=== PATIENT | male | born 1940 | race Caucasian/White ===

== ENCOUNTER 2019-08-19 08:31 | Outpatient (CLI) | payer MEDICARE, SELFPAY ==
--- NOTE | 2019-08-19 09:00 | XRR_ITS ---
PROCEDURE INFORMATION: Exam: XR Abdomen, 1 View Exam date and time: 08/19/2019 9:21 AM Age: 78 years old Clinical indication: Abdominal pain; Additional info: Kidney stone, f/u, pain x 1 year TECHNIQUE: Imaging protocol: XR of the abdomen. Views: Frontal supine view of the abdomen. 1 View. COMPARISON: CR XR KUB [id number] 04/29/2019 7:21 AM FINDINGS: Gastrointestinal tract: A moderate amount of air and stool is present in the colon. This limits evaluation for renal or ureteral calculi. Organs: Several small calcifications in the pelvis and overlying the bladder are noted. These could represent phleboliths or bladder stones. Bones/joints: No acute abnormality. XR/XR KUB [id number] IMPRESSION: 1. A moderate amount of air and stool is present in the colon. This limits evaluation for renal or ureteral calculi. 2. Several small calcifications in the pelvis and overlying the bladder are noted. These could represent phleboliths or bladder stones.
== END 2019-08-19 08:32 | disposition home or self-care (01) ==
PROVIDERS: Family Provider Electrodiagnostic Medicine; PCP Electrodiagnostic Medicine; Visit Provider Urology
DX: N20.0 Calculus of kidney (principal)
CPT/HCPCS: 74018; 81001

== ENCOUNTER 2020-05-19 06:11 | Outpatient (CLI) | payer MEDICARE, SELFPAY ==
--- NOTE | 2020-05-19 07:15 | XR_ITS ---
WS: [id number] XR KUB [id number] REASON FOR EXAM: BLADDER STONE FINDINGS: Compared to the previous examination, there is likely a small calculus in the lower pole of the right kidney which is unchanged. Calcification in the left upper quadrant is likely splenic artery in orig in. There are multiple calcifications in the pelvis. Clearly 2 of these on the left are phleboliths. More superior of these calcifications have the appearance of calculi and they appear to be larger than on the previous study. There is now an appearance of a curvilinear calcification seen overlying the right aspect of the pubi c symphysis which could be an overlap of structures. No other significant findings are noted. XR/XR KUB [id number] IMPRESSION: Multiple calcifications in the pelvis as noted. For better delineation of the p ossible etiology and location of these calcifications an AP and both oblique vi ews of the pelvis are recommended.
== END 2020-05-19 06:12 | disposition home or self-care (01) ==
PROVIDERS: PCP Electrodiagnostic Medicine; Visit Provider Urology
DX: N20.9 Urinary calculus, unspecified (principal)
CPT/HCPCS: 74018; 81003

== ENCOUNTER 2020-08-29 18:17 | Inpatient (IN) | payer MEDICARE, SELFPAY ==
[2020-08-29] VITALS (10 sets, daily range): BP systolic 167–186; BP diastolic 85–117; PULSE 64–79; RESP 14–18; TEMP 36.8–37; O2SAT 91–98; BMI 29.1
--- NOTE | 2020-08-29 18:57 | XRR_ITS ---
PROCEDURE INFORMATION: Exam: XR Right Knee Exam date and time: 08/29/2020 7:00 PM Age: 79 years old Clinical indication: Pain and injury or trauma; Fall; Blunt trauma; Knee; Right TECHNIQUE: Imaging protocol: XR Right knee. Views: 3 views. COMPARISON: CR Knee 3 views, RIGHT* [id number] 04/27/2016 8:14 PM FINDINGS: Bones/joints: There is a comminuted fracture of the distal femoral diaphysis, with anterior displacement and overlap of fracture fragments, resulting in foreshortening. No dislocation. A joint effusion is present. Soft tissues: Swelling of the surrounding soft tissues is evident. XR/XR knee RT 3V* [id number] IMPRESSION: Comminuted and displaced fracture of the right distal femoral diaphysis.
--- NOTE | 2020-08-29 18:58 | ED_ITS ---
HPI - Fall General: Chief Complaint: Fall Stated Complaint: FALL / KNOT ON KNEE Time Seen by Provider: 08/29/20 18:54 Source: patient and EMS Mode of arrival: EMS Limitations: no limitations History of Present Illness: HPI Narrative: 79-year-old male who is here by EMS after a fall. Patient states that he was outside walking and tripped and fell and landed on his right leg. He has had severe right knee pain and was unable to stand or bear any weight on that leg. He states the pain is in the knee. He denies any hip pain. Denies any back pain. Denies hitting his head. He states his pain is much worse with any type of movement. He rates his pain currently a 4 out of 10 at rest. MD complaint: fall Associated symptoms-after fall: Denies abdominal pain, chest pain, headache(s) or neck pain Review of Systems Const: Denies: fever(s), chills, body aches or change in appetite Eyes: Denies: blurry vision or eye discomfort ENMT: Denies: throat pain or dental pain Card: Denies: chest pain Resp: Denies: dyspnea GI: Denies: abdominal pain, nausea, vomiting or diarrhea : Denies: dysuria Musc: Reports: joint pain; Denies: neck pain or back pain Skin/Breast: Denies: rash Neuro: Denies: headache(s) Psych: Denies: depression Rafita/Lymph: Denies: easy bruising All/Imm: Denies: urticaria PFSH ED PFSH: Medical History (Updated 08/29/20 @ 19:50 by Manuel Ortega MD) BPH loc w urin obs/LUTS History of bladder stone Postprocedural urethral stricture On [facility] program with good patency maintenance Urolithiasis Surgical History History of orchiectomy History of transurethral resection of prostate Family History Mother , AT AGE 69 Stroke Father , IN HIS 60-70'S Prostate cancer Social History Smoking and tobacco status: former smoker Alcohol intake: never Adopted: No Caregiver/support person: No Lives independently: No Household members: spouse Marital status: Current occupational status: retired History of recent travel: No Current gender identity: Male Physical Exam Const: COMMON NORMALS: no acute distress, patient oriented x3 and healthy appearing HENMT: COMMON NORMALS: normocephalic and atraumatic HEAD & SCALP: normocephalic and atraumatic Eye: COMMON NORMALS: Equal, round and reactive pupils present and EOMs intact bilaterally PUPIL: Yes Equal, round and reactive pupils present Neck/C-Spine: COMMON NORMALS: full ROM and supple Chest: COMMONS NORMALS: normal inspection of the chest and normal palpation of entire chest wall Resp: COMMON NORMALS: normal respiratory effort, No retractions, No use of accessory muscles and clear to auscultation bilaterally AUSCULTATION: clear to auscultation bilaterally Cardio: COMMON NORMALS: regular rate, regular rhythm and No murmurs present (Cardio) RATE: regular rate RHYTHM: regular rhythm GI: COMMON NORMALS: Normal to inspection, nondistended, normoactive bowel sounds present, Soft to palpation, non-tender and no masses PALPATION: Yes Soft to palpation Extremity: NARRATIVE EXTREMITY EXAM: Tenderness over right knee distal pulses intact. Unable to tolerate any range of motion due to pain Neuro: COMMON NORMALS: patient oriented x3, moves all extremities and no focal motor deficits Psych: COMMON NORMALS: mental status grossly normal, Normal thought process present and cooperative THOUGHT PROCESS: Normal thought process present Skin: COMMON NORMALS: no rashes or lesions noted and no wounds GENERAL SKIN EXAM: no rashes or lesions noted Course Vital Signs: Vital signs: Vital Signs Temperature 98.6 F 08/29/20 19:12 Pulse Rate 79 08/29/20 19:37 Respiratory Rate 14 08/29/20 19:37 Blood Pressure 167/89 08/29/20 19:37 Pulse Oximetry 98 08/29/20 19:37 MDM - Fall MDM Narrative: Medical decision making narrative: Patient presents with a fall and has a distal femur fracture. I spoke to Dr. Van of orthopedics along with the hospitalist and will admit at this time. He has no other signs of any other injuries. Imaging Data^: Xray Ortho: Attestation: I personally reviewed and interpreted this imaging study as follows: My impression: distal femur fx Discharge Plan Discharge Patient Disposition: Admitted As Inpatient Clinical Impression: Fall Closed right femoral fracture Qualifiers: Encounter type: initial encounter Femur location: distal, unspecified portion Fracture morphology: unspecified fracture morphology Qualified Code(s): S72.401A - Unspecified fracture of lower end of right femur, initial encounter for closed fracture Condition: Stable Coding Level of Care Code ED Healthcare Economics Manager for Al[facility] Fwd Exam Comprehensive
[2020-08-29] MEDS: morphine 4 mg/mL SDV 1 mL IVP (19:08)
[2020-08-29] MEDS: ondansetron 2 mg/ML SDV 2 mL 4 MG IVP (19:08)
--- NOTE | 2020-08-29 19:29 | ECG_ITS ---
[facility] Test Date: 2020-08-29 Pat Name: Zaki Segura Department: Room: Gender: Male Credit Administration Officer: : 1940 Requested By: Manuel Ortega Order Number: [id number] Javi MD: Heaven Trujillo M.D. Measurements Intervals [place] Rate: 75 P: 51 WA: 189 QRS: -65 QRSD: 128 T: 16 QT: 416 QTc: 467 Interpretive Statements SINUS RHYTHM RIGHT BUNDLE BRANCH BLOCK [120+ ms QRS DURATION, UPRIGHT V1, 40+ ms S IN I/aVL/V4/V5/V6] INFERIOR MYOCARDIAL INFARCTION , PROBABLY OLD [40+ ms Q WAVE AND/OR ST/T ABNORMALITY IN II/aVF] Compared to ECG 12/26/2015 12:05:20 Right bundle-branch block now present Myocardial infarct finding now present Electronically Signed On 08-30-2020 8:00:04 CERTIFIED DENTAL ASSISTANT by Heaven Trujillo M.D. [id number]
--- NOTE | 2020-08-29 19:29 | XRR_ITS ---
PROCEDURE INFORMATION: Exam: XR Chest, 1 View Exam date and time: 08/29/2020 7:34 PM Age: 79 years old Clinical indication: Injury or trauma; Fall; Blunt trauma (contusions or hematomas) TECHNIQUE: Imaging protocol: XR of the chest Views: 1 view. COMPARISON: CR Chest 2 views* [id number] 02/07/2016 12:41 PM FINDINGS: Lungs: Unremarkable. No consolidation. Pleural spaces: Unremarkable. No pleural effusion. No pneumothorax. Heart/Mediastinum: Stable cardiomediastinal silhouette. Bones/joints: Degenerative changes of the spine seen. No acute fracture visualized. XR/XR chest 1V portable [id number] IMPRESSION: No evidence of active cardiopulmonary disease.
--- NOTE | 2020-08-29 19:30 | PC.NURSE ---
xray in room
--- NOTE | 2020-08-29 19:55 | P.HP_ITS ---
Providers/Chief Complaint Primary Care Provider: Darci Frances DO Chief Complaint: FALL / KNOT ON KNEE History of Present Illness Zaki Segura is a 79 year old male who does not have significant past medical history presented today after sustaining a fall. Patient is stating that in the evening he went outside of his home to take a look at sewerage area when he slipped on the ice and fell. He did not experience any seizure-like activities, chest pain shortness of breath nausea or syncopal event. He is attributing his fall to loss of balance on ice. He was transported to the hospital for further evaluation, diagnostics in the ER revealed distal right femur fracture displaced, hypertension, he was saturating well on room air he did not require 2 L nasal cannula at the time my evaluation. Patient was not complaining of a ctive pain at rest, no vascular compromise of lower extremities, CBC, BMP, chest x-ray, knee x-ray and EKG reviewed. EKG is unremarkable showing sinus rhythm. No ischemic or infarctive changes, knee x-ray showing displaced distal femur fracture. 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 Review of Systems Const: Denies: fever(s) or chills Eyes: Denies: change in vision ENMT: Denies: throat pain Card: Denies: chest pain Resp: Denies: dyspnea GI: Denies: abdominal pain : Denies: flank pain Musc: Reports: extremity pain, joint pain, joint swelling, joint redness, joint warmth and limited range of motion Skin/Breast: Denies: rash Neuro: Denies: headache(s) Psych: Denies: anxiety Endo: Denies: polyuria Rafita/Lymph: Denies: easy bruising All/Imm: Denies: urticaria Medications/Allergies Home Medications Medication Instructions Recorded Confirmed Last Taken Type chlorpheniramine maleate 4 mg 4 mg PO Q12H PRN tab 08/19/19 05/19/20 Unknown History tablet ciprofloxacin HCl 500 mg tablet 500 mg PO BID 08/19/19 05/19/20 Unknown History metoprolol tartrate 50 mg tablet 50 mg PO DAILY 08/19/19 05/19/20 Unknown History tamsulosin 0.4 mg capsule 0.4 mg PO DAILY #90 cap 01/13/20 05/19/20 Unknown Rx Allergies Allergy/AdvReac Type Severity Reaction Status Date / Time Sulfa (Sulfonamide Allergy UNKNOWN Verified 08/17/19 15:48 Antibiotics) sulfamethoxazole Allergy UNKNOWN Verified 08/17/19 15:48 [From Bactrim] trimethoprim [From Bactrim] Allergy UNKNOWN Verified 08/17/19 15:48 PFSH Acute PFSH: Medical History BPH loc w urin obs/LUTS History of bladder stone Postprocedural urethral stricture On [facility] program with good patency maintenance Urolithiasis Surgical History History of orchiectomy History of transurethral resection of prostate Family History Mother , AT AGE 69 Stroke Father , IN HIS 60-70'S Prostate cancer Social History Smoking and tobacco status: former smoker Alcohol intake: never Adopted: No Caregiver/support person: No Lives independently: No Household members: spouse Marital status: Current occupational status: retired History of recent travel: No Current gender identity: Male Vitals/I&O/Wt Last Vital Signs Temp 98.6 F 08/29/20 19:12 Pulse 79 08/29/20 19:37 Resp 14 08/29/20 19:37 BP 167/89 08/29/20 19:37 Pulse Ox 98 08/29/20 19:37 Weight last 48 hrs Weight 84.368 kg Physical Exam Narrative: EXAM NARRATIVE: elderly male who appears stated age Does not look dehydrated or in distress S1, S2 sinus rhythm no murmur appreciated No signs of fluid overload Abdomen soft, distended visceral obesity nontender bowel sound present Lower extremity no vascular compromise, right leg has splint, no ischemia gangrene or ulcer noted Limited range of motion Bilateral breath sounds without adventitious rhonchi or crackles no active wheezing Awake alert oriented x3 GCS 15 Appropriate mood, no neurological deficit Data : 08/29/20 20:10 08/29/20 20:10 A&P Assessment and plan (1) Closed right femoral fracture: Right distal femur fracture, no vascular compromise of lower extremity noted Dr. Van consulted Patient will be kept n.p.o. after midnight, will start D5 half-normal saline fluid resuscitation SCDs for DVT prophylaxis preoperatively Patient considers himself very active for his age never had any SC CHF, does not take insulin, RCRI low risk no need of cardiac evaluation before surgery considering urgency of the procedure I would continue metoprolol Right leg has a splint, Senna S and Dilaudid regimen EKG showing sinus rhythm with bundle branch block with T wave changes specific to right bundle branch otherwise patient is asymptomatic, chest x-ray did not sh ow any acute abnormality Status: Acute Qualifiers: Encounter type: initial encounter Femur location: distal, unspecified portion Fracture morphology: unspecified fracture morphology Qualified Code(s): S72.401A - Unspecified fracture of lower end of right femur, initial encounter for closed fracture (2) Fall: Patient is attributing his fall to losing balance on the ice, no syncope, seizure-like activities or chest pain Status: Acute Additional A&P Information Hypertension: Continue metoprolol Diet: N.p.o. DVT prophylaxis SCDs Goals of care discussed with the patient he is okay with intubation perioperatively but wishes to stay DNR/DNI, he is also refusing COVID-19 rapid antigen test Attestations Medical Necessity Statement*: Anticipating stay in the hospital cross more than 2 midnights will need surgical intervention for right distal femur fracture Time Spent in Patient Care: (>than 50% of time spent in counselling and/or direct pt care on unit) . 50mins Coding Level of Care Code Acute Inclusion Intern for Chg Fwd Diagnoses Closed right femoral fracture S72.401A Encounter type: initial encounter Femur location: distal, unspecified portion Fracture morphology: unspecified fracture morphology Fall W19.XXXA
[2020-08-29 20:25] LABS: Basophils # 0.1 10^3/uL (0.0-0.1); Basophils % 0.4 %; Eosinophils # 0.1 10^3/uL (0.0-0.8); Eosinophils % 0.4 %; Hematocrit 39.5 % (42.0-52.0); Hemoglobin 12.8 g/dL (11.7-16.6); Lymphocytes # 0.9 10^3/uL (0.8-4.8); Lymphocytes % 7.7 %; Mean Corpuscular HGB Conc 32.4 g/dL (30.0-36.0); Mean Corpuscular Hemoglobin 28.9 pg (28.0-34.0); Mean Corpuscular Volume 89.2 fL (80-94); Mean Platelet Volume 10.1 fL (7.4-10.4); Monocytes # 0.7 10^3/uL (0.2-0.9); Monocytes % 5.5 %; Neutrophils % 85.8 %; Nucleated Red Blood Cells % 0 %; Platelet Count 247 10^3/cmm (130-400); Red Blood Count 4.43 10^6/uL (4.1-5.3); Red Cell Distribution Width 12.8 % (12.1-15.1); White Blood Count 11.8 10^3/uL (4.0-10.0)
[2020-08-29 20:54] LABS: Alanine Aminotransferase 22 U/L (0-41); Albumin Level 4.4 g/dL (3.5-5.2); Alkaline Phosphatase 97 IU/L (40-130); Aspartate Amino Transferase 22 U/L (0-40); Blood Urea Nitrogen 17 mg/dL (8-23); Carbon Dioxide 28 mmol/L (22-29); Chloride 104 mmol/L (98-107); Globulin 2.6 g/dL (1.3-4.6); Glucose 127 mg/dL (65-115); Osmolality Calculated 295 mOsm/kg (285-295); Sodium 141 mmol/L (136-145); Total Bilirubin 0.7 mg/dL (0.15-1.2)
[2020-08-29 21:16] LABS: Anion Gap 13.4 (5-19); Potassium 4.4 mmol/L (3.5-5.1)
[2020-08-29 21:34] LABS: INR 0.99 (0.8-1.2)
--- NOTE | 2020-08-29 23:38 | PC.NURSE ---
Pedal pulses marked.
[2020-08-29] MEDS: dextrose 5%-sod chloride 0.45% 1,000 ML 75 ML IV (23:43)
[2020-08-30] VITALS (23 sets, daily range): BP systolic 128–177; BP diastolic 70–96; PULSE 75–88; RESP 12–22; TEMP 36.3–37.9; O2SAT 90–97
--- NOTE | 2020-08-30 | XR_ITS ---
WS: [id number] C-ARM RADIOGRAPHS RIGHT FEMUR; 5 IMAGES HISTORY: BREAK IN DISTAL FEMUR COMPARISON: 08/29/2020 Intraoperative imaging during ORIF distal femoral fracture. Fracture now in good position alignment. Compression plate and screws have been a slight across the fracture. XR/XR femur RT min 2V* [id number] IMPRESSION: Intraoperative imaging during ORIF distal femur fracture fixation.
--- NOTE | 2020-08-30 | SCC_ITS ---
Procedure Done: Open reduction internal fixation right supracondylar femur fracture 64.2 seconds of fluoroscopic guidance, for a cumulative dose of 4.07 mGy, was provided to Dr. Van by the radiology department. C-arm images of the RIGHT femur were saved for the patient's permanent record. [facility]
[2020-08-30] MEDS: HYDROmorphone 1 mg/mL INJ 1 mL 0.5 MG IVP (01:08)
[2020-08-30 05:27] LABS: Basophils % 0.5 %; Eosinophils # 0.1 10^3/uL (0.0-0.8); Eosinophils % 0.7 %; Hematocrit 38.1 % (42.0-52.0); Mean Corpuscular HGB Conc 31.5 g/dL (30.0-36.0); Mean Corpuscular Hemoglobin 28.8 pg (28.0-34.0); Mean Corpuscular Volume 91.6 fL (80-94); Mean Platelet Volume 9.4 fL (7.4-10.4); Monocytes # 0.7 10^3/uL (0.2-0.9); Monocytes % 9.1 %; Neutrophils # 5.86 10^3/uL (1.8-7.7); Neutrophils % 76.3 %; Nucleated Red Blood Cells % 0 %; Platelet Count 208 10^3/cmm (130-400); Red Blood Count 4.16 10^6/uL (4.1-5.3); White Blood Count 7.7 10^3/uL (4.0-10.0)
[2020-08-30 05:45] LABS: Anion Gap 10.2 (5-19); Blood Urea Nitrogen 15 mg/dL (8-23); Calcium 8.6 mg/dL (8.5-10.5); Carbon Dioxide 28 mmol/L (22-29); Chloride 103 mmol/L (98-107); Glucose 154 mg/dL (65-115); Osmolality Calculated 288 mOsm/kg (285-295); Potassium 4.2 mmol/L (3.5-5.1); Sodium 137 mmol/L (136-145)
--- NOTE | 2020-08-30 06:21 | PC.NURSE ---
pt left floor to surgery with KARON Jolly via bed at 0620
--- NOTE | 2020-08-30 06:34 | PM.CONSULT ---
Providers/Reason For Consult Consulting Physican/Specialty*: Pako Van MD Reason for Consult*: Right supracondylar femur fracture Attending Physician: Suzette Álvarez MD Primary Care Provider: Darci Frances DO History of Present Illness History of Present Illness Zaki Segura is a 79 year old male who slipped and fell in his yard over a snow covered decorative railroad tie. He apparently laid outside for 30 minutes before he could contact his by the cell phone. He was transferred by EMS here to the hospital where radiographs revealed a right supracondylar humerus fracture. He is admitted to medicine orthopedics consulted for management of the fracture. Meds/Allergies Home Medications and Allergies Home Medications Medication Instructions Recorded Confirmed Last Taken Type chlorpheniramine maleate 4 mg 4 mg PO Q12H PRN tab 08/19/19 05/19/20 Unknown History tablet ciprofloxacin HCl 500 mg tablet 500 mg PO BID 08/19/19 05/19/20 Unknown History metoprolol tartrate 50 mg tablet 50 mg PO DAILY 08/19/19 05/19/20 Unknown History tamsulosin 0.4 mg capsule 0.4 mg PO DAILY #90 cap 01/13/20 05/19/20 Unknown Rx Allergies Allergy/AdvReac Type Severity Reaction Status Date / Time Sulfa (Sulfonamide Allergy UNKNOWN Verified 08/17/19 15:48 Antibiotics) sulfamethoxazole Allergy UNKNOWN Verified 08/17/19 15:48 [From Bactrim] trimethoprim [From Bactrim] Allergy UNKNOWN Verified 08/17/19 15:48 Current Medications Current Medications Generic Name Dose Route Start Last Admin Trade Name Freq PRN Reason Stop Dose Admin Hydromorphone HCl 0.5 mg 08/29/20 23:09 08/30/20 01:08 Hydromorphone 1 Mg/Ml Inj 1 Ml IVP 0.5 mg Q4H PRN Administration PAIN Dextrose/Sodium Chloride 1,000 mls @ 75 mls/hr 08/29/20 23:09 08/29/20 23:43 Dextrose 5%-Sod Chloride 0.45% IV 75 mls/hr .[id number] TORRIE Administration PFSH Acute PFSH: Medical History (Updated 08/30/20 @ 06:41 by Pako Van MD) BPH loc w urin obs/LUTS History of bladder stone Postprocedural urethral stricture On [facility]IC program with good patency maintenance Urolithiasis Surgical History History of orchiectomy History of transurethral resection of prostate Family History Mother , AT AGE 69 Stroke Father , IN HIS 60-70'S Prostate cancer Social History Smoking and tobacco status: former smoker Alcohol intake: never Adopted: No Caregiver/support person: No Lives independently: No Household members: spouse Marital status: Current occupational status: retired History of recent travel: No Current gender identity: Male Vitals/I&O/Wt Last Vital Signs Temp 99.2 F 08/30/20 04:00 Pulse 87 08/30/20 04:00 Resp 17 08/30/20 04:00 BP 160/72 08/30/20 04:00 Pulse Ox 90 08/30/20 04:00 08/29/20 08/29/20 08/30/20 14:59 22:59 06:59 Output Total 1100 / 1100 Balance -1100 / -1100 Weight last 48 hrs Weight 186 lb Physical Exam Narrative: EXAM NARRATIVE: Patient has shortening and deformity of the right femur. He has a palpable right dorsalis pedis pulse. Can flex and extend his toes and ankle. Right sensation is intact to light touch. Urinary Catheter Management^: Garcia: Cath Placed During This Visit: yes Reason for Continuing Indwelling Catheter: Perioperative Use in Selected Surgeries Urinary Catheter Date of Insertion: 08/29/20 Urinary Catheter Time of Insertion: 20:50 Data Imaging^: Xray Ortho: I personally reviewed and interpreted this imaging study as follows: (2 views of the right knee) My impression: 2 views of the right knee are personally interpreted. The patient has a slightly comminuted transverse fracture of the right distal femur at the metaphyseal diaphyseal junction. A&P Assessment and plan (1) Supracondylar fracture of right femur: Discussed treatment options with the patient. Certainly this is an unstable fracture that would benefit from surgical stabilization to facilitate healing and function in the knee. I discussed treatment options. We will proceed with locking lateral plate. Discussed. But limited weightbearing that would be required for healing. I discussed risk including bleeding infection. Discussed risk of deep venous thromboses and pulmonary Bhilai. I discussed risk of nonunion malunion. Discussed hardware that may ultimately need to be removed. Discussed possible need for further procedures. He seems reasonably healthy I think medical risk should be minimal. We will proceed with surgery today. Status: Acute Coding Level of Care Code Acute Advanced Manufacturing Consultant for [facility] Rosa Isela Diagnoses Supracondylar fracture of right femur S72.451A
--- NOTE | 2020-08-30 06:38 | PC.NURSE ---
Temp 100.[address] Van, no new orders at this time. Placed offset plate preparation supervisor antibiotic Ancef 2 gm, allergies confirmed.
[2020-08-30] MEDS: sodium chloride 0.9% 1,000 ML 30 ML IV (06:46)
--- NOTE | 2020-08-30 06:50 | ANES.PREANE2 ---
Pre-Anesthetic Assessment Pre-Anesthetic Assessment: Height/Weight: Height 1.7 m Weight 84.368 kg Temp Pulse Resp BP Pulse Ox 100.2 F H 87 20 H 157/78 93 08/30/20 06:39 08/30/20 06:39 08/30/20 06:39 08/30/20 06:39 08/30/20 06:39 Preop Diagnosis: femur fracture Proposed Procedure: Operation Date: 08/30/20 07:00 Proposed Procedures p Trochanteric Femoral Nail(Right) - Pako Van MD Familial anesthetic complications: Remains very sleepy afterwards for several hours Was Beta Chris taken within 24 hours: Yes Last intake: Intake Last Liquid Date 08/29/20 Last Liquid Time 23:55 Last Solid Date 08/29/20 Social: Social History: No alcohol and No tobacco Exam: Pre-Anes Outpt Exam: alert, oriented x 3, clear to auscultation bilaterally and regular rate & rhythm Airway: Cervical ROM: WNL MP: 4 Dentition: Full CV/HEM: CV/HEM: HTN Anesthetic Plan: ASA status: 2 Anesthesia: General Risk of > 500 ml blood loss (7ml/kg in children): No Meds/Allergies Current Medications: Current Medications Generic Name Dose Route Start Last Admin Trade Name Freq PRN Reason Stop Dose Admin Hydromorphone HCl 0.5 mg 08/29/20 23:09 08/30/20 01:08 Hydromorphone 1 Mg/Ml Inj 1 Ml IVP 0.5 mg Q4H PRN Administration PAIN Dextrose/Sodium Ch loride 1,000 mls @ 75 ml s/hr 08/29/20 23:09 08/30/20 06:46 Dextrose 5%-Sod Chloride 0.45% IV 0 mls/hr .[id number] TORRIE Infusion Sodium Chloride 1,000 mls @ 30 ml s/hr 08/30/20 06:45 08/30/20 06:46 Sodium Chloride 0.9% IV 08/31/20 06:44 30 mls/hr .Q24H TORRIE Administration PFSH Anesthesia PFSH: Medical History (Updated 08/30/20 @ 06:41 by Pako Van MD) BPH loc w urin obs/LUTS History of bladder stone Postprocedural urethral stricture On [facility]IC program with good patency maintenance Urolithiasis Surgical History History of orchiectomy History of transurethral resection of prostate Family History Mother , AT AGE 69 Stroke Father , IN HIS 60-70'S Prostate cancer Social History Smoking and tobacco status: former smoker Alcohol intake: never Adopted: No Caregiver/support person: No Lives independently: No Household members: spouse Marital status: Current occupational status: retired History of recent travel: No Current gender identity: Male Data Anesthesia CBC & Chem 7: 08/30/20 05:15 08/30/20 05:15 Other Labs: Laboratory Results - last 48 hr 08/29/20 08/29/20 08/29/20 20:10 20:10 20:10 WBC 11.8 H RBC 4.43 Hgb 12.8 Hct 39.5 L MCV 89.2 MCH 28.9 MCHC 32.4 RDW 12.8 Plt Count 247 MPV 10.1 Neut % (Auto) 85.8 Lymph % (Auto) 7.7 [place] % (Auto) 5.5 Eos % (Auto) 0.4 Baso % (Auto) 0.4 Neut # (Auto) 10.10 H Lymph # (Auto) 0.9 [place] # (Auto) 0.7 Eos # (Auto) 0.1 Baso # (Auto) 0.1 Nucleated RBC % (auto) 0 Nucleated RBCs # 0.0 PT 13.40 INR 0.99 Sodium 141 Potassium 4.4 Chloride 104 Carbon Dioxide 28 Anion Gap 13.4 BUN 17 Creatinine 1.0 GFR Calculation Not Reportable Glucose 127 H Calculated Osmolality 295 Calcium 9.0 Total Bilirubin 0.7 AST 22 ALT 22 Alkaline Phosphatase 97 Total Protein 7.0 Albumin 4.4 Globulin 2.6 08/30/20 08/30/20 05:15 05:15 WBC 7.7 RBC 4.16 Hgb 12.0 Hct 38.1 L MCV 91.6 MCH 28.8 MCHC 31.5 RDW 13.0 Plt Count 208 MPV 9.4 Neut % (Auto) 76.3 Lymph % (Auto) 13.0 [place] % (Auto) 9.1 Eos % (Auto) 0.7 Baso % (Auto) 0.5 Neut # (Auto) 5.86 Lymph # (Auto) 1.0 [place] # (Auto) 0.7 Eos # (Auto) 0.1 Baso # (Auto) 0.0 Nucleated RBC % (auto) 0 Nucleated RBCs # 0.0 PT INR Sodium 137 Potassium 4.2 Chloride 103 Carbon Dioxide 28 Anion Gap 10.2 BUN 15 Creatinine 1.1 GFR Calculation Not Reportable Glucose 154 H Calculated Osmolality 288 Calcium 8.6 Total Bilirubin AST ALT Alkaline Phosphatase Total Protein Albumin Globulin Cardiac Studies: No Data to Display
[2020-08-30] MEDS: tranexamic acid 1,000 mg/10mL SDV (07:44)
--- NOTE | 2020-08-30 09:01 | P.OP_ITS ---
Operative Report Date of procedure: August 30, 2020 Pre-op Diagnosis: Right supracondylar femur fracture Post-op diagnosis: same Post-op Findings: Same Procedure Done: Open reduction internal fixation right supracondylar femur fracture Implants: [place] AXSOS right 12 hole plate Pathology: none sent Surgeon: Pako Van Anesthesia: General Estimated blood loss (mL): 200 Findings: The patient had a comminuted right Condition: stable Disposition: PACU Procedure: The patient was taken to the operating room given 2 g of Ancef and a gram of tranexamic acid. He was prepped and draped supine on the fracture table with his right lower extremity exposed. A timeout was performed. An 8 cm long incision was made from Yen's tubercle proximal along the shaft of the femur. The fascia uche was split in the vastus lateral is elevated. The fracture was brought out to the length and provisionally held with multiple K wires and a reduction clamp. A 14 hole plate was then passed through the incision submuscularly along the lateral femur and provisionally fixed with a nonlocking cancellous screw. Additional K wires were placed through the plate into the femur to maintain length. Utilizing the attached guide a unicortical cancellous screw was placed through the most proximal hole of the plate securing it to the femur. 6 additional locking screws into nonlocking screws were placed across the distal femur all with very good purchase. 5 locking screws were placed proximally across the femur. There was some elevation of the plate off the diaphysis proximally 3 to 4 mm centrally but it was felt that reduction of the plate to the bone would displace the fracture. Wounds were irrigated with saline. C-arm was used to verify hardware position. The vastus lateralis was repaired to the posterior septum with 0 Vicryl. The fascia uche was closed with a running 1 Stratafix suture. Deep tissues were closed with 2-0 Vicryl. The skin was closed with skin ghada. Xeroflo gauze, 4 x 4's, ABD pads, web roll, and Alden wrap from toe to thigh were applied. The patient was placed in his knee immobilizer. He was extubated and taken recovery room in stable condition.
[2020-08-30] MEDS: fentaNYL 50 mcg/mL INJ 2mL IVP ×2 (09:26→09:31)
--- NOTE | 2020-08-30 10:57 | PC.CHAP ---
Pastoral Care Encounter/Spiritual Assessment Type of Contact [] Declined sheeting puller visit [] Patient/Family/Request visit [] Outpatient visit [] Follow-up visit [] Physician referral [] Code/Alert [x] Routine visit [] Staff referral [] Actively dying [] Patient sleeping [] Family support [] [] Out of room [] Palliative care [] [x] Receiving care in room [] Pre-surgical visit [] Trauma [] Long length of stay [] ICU visit [] Other: Relational/Emotional Strength [] Patient feels connected with others/family/visitors/staff [] Distress [] Loneliness/isolation [] Abandonment Spirituality of Patient [] Person of Adali [] Attends Taoism of their Adali [] Believes in Prayer [] Reads Bible or Nondenominational materials [] There are Spiritual issues to be addressed General Worker Interventions [] Prayer [] Active listening [] Non-anxious presence [] Spiritual/emotional support [] Crisis/trauma care [] Spiritual counseling [] Bereavement support [] Provided bereavement packet [] Provided Bible/devotional materials [] Provided toy/stuffed animal, coloring book to patient or family member [] Provided Communion [] Anointing/[place] [] Salvation [] Completed spiritual assessment [] Other: Impact on Illness or Injury [] Angry [] Fearful [] Anxious [] Often cries [] Exhaustion [] Unable to work [] Unable to attend spiritism [] Unable to walk/stand [] Unable to read [] Unable to drive [] Unable to eat/drink [] Unable to sleep [] Unable to be with family [] Patient intubated [] Other: Summary Time spent with patient
[2020-08-30] MEDS: HYDROcodone-acetaminophen 5-325 mg Tablet 1 TAB PO ×3 (11:44→21:47)
--- NOTE | 2020-08-30 11:53 | ANE.PACU2 ---
Inpatient post-anesthesia follow up: Airway intact: Yes Vital signs: Temperature 98.6 F Pulse Rate [Left] 70 Pulse Rate 85 Respiratory Rate 18 Blood Pressure [Le ft Arm] 186/117 Blood Pressure 161/84 Pulse Oximetry 94 Oxygen Delivery Me thod Room Air Oxygen Flow Rate 8 Fraction of Inspir ed Oxygen Hydration adequate: Yes Nausea and vomiting: No Pain level: 2 Mental status: Baseline
[2020-08-30 12:54] LABS: Add Urine Microscopic? YES; Bilirubin Urine Neg (Negative); Blood Urine 3+ (Negative); Glucose Urine UA Norm (Normal); Ketones Urine Negative (Negative); Leukocyte Esterase Urine Trace (Negative); Nitrate Urine Negative (Negative); Protein Urine Neg (Negative); Urine Appearance SL Hazy (CLEAR); Urine Color Yellow (Yellow); Urobilinogen Urine Norm (Negative); pH Urine 6.5 (5-7)
[2020-08-30 12:59] LABS: RBC Urine 40-50 /hpf (0-2)
[2020-08-30 13:00] LABS: Bacteria Urine 3+ /hpf; Squamous Epithelial Cell Urine 0-4 /hpf (0-5)
[2020-08-30 13:01] LABS: Add Urine Culture? Yes
[2020-08-30 13:13] LABS: SARS Covid-2 Antigen Negative (Negative)
[2020-08-30] MEDS: chlorhexidine gluconate 0.12% Btl 473 mL 30 ML MUCOUS MEM ×3 (14:13→21:27)
[2020-08-30] MEDS: dextrose 5%-sod chloride 0.45% 1,000 ML 75 ML IV (14:14)
--- NOTE | 2020-08-30 16:21 | US_ITS ---
WS: [id number] RENAL ULTRASOUND HISTORY: uti, hematuria, Hx kidney stones, assess for any hydronephrosis COMPARISON: None available. TECHNIQUE: 2-D and color Doppler imaging of the kidney submitted. Right kidney: 11.3 cm x 4.7 cm x 4.4 cm. Normal size kidney. Mild diffuse cortical thinning. Cortex measures 6 mm. There is slight increased e chogenicity. No mass. Left kidney: 10.5 cm x 5.0 cm x 4.8 cm. Normal size kidney. There is a cyst in the inferior pole measuring 0.9 x 1.4 x 1.5 cm. Very mild jose ical thinning but not as significant as on the RIGHT. There is an additional smaller cyst in the mid kidney. Aorta: Normal. Urinary Bladder: Nondistended. Garcia catheter is in place. US/US renal BI* [id number] IMPRESSION: 1. No hydronephrosis. 2. Mild atrophy and cortical thinning RIGHT kidney. 3. Small LEFT renal cysts.
--- NOTE | 2020-08-30 16:22 | P.PN_ITS ---
Subjective Subjective: Interval history: Postoperatively overall he is doing all right, denies any chest pain or pressure, no trouble breathing. Is on nasal cannula oxygen several liters, usually does not use supplemental oxygen. He is having pain in his right lower thigh. He denies any shortness of breath, chills, headache, nausea, vomiting, diarrhea. He does report he has had some redness of the tip of his penis, without any discharge. He says he has history of kidney stones as told by his urologist which were nonobstructive. Vitals/I&O/Wt Last Vital Signs Temp 98.6 F 08/30/20 11:00 Pulse 88 08/30/20 14:03 Resp 18 08/30/20 14:03 BP 161/84 08/30/20 11:00 Pulse Ox 97 08/30/20 14:03 08/30/20 08/30/20 08/30/20 06:59 14:59 22:59 Intake Total 528.75 / 528.75 290 / 290 Output Total 1100 / 1100 950 / 950 Balance -571.25 / -571.25 -660 / -660 Weight last 48 hrs Weight 84.368 kg Physical Exam Const: COMMON NORMALS: no acute distress and patient oriented x3 NUTRITIONAL APPEARANCE: overweight HENMT: COMMON NORMALS: oropharynx normal Neck/C-Spine: COMMON NORMALS: no JVD Resp: COMMON NORMALS: normal respiratory effort and clear to auscultation bilaterally AUSCULTATION: clear to auscultation bilaterally Cardio: COMMON NORMALS: no JVD, regular rhythm, S1 normal heart sound present, S2 normal heart sound present and No murmurs present (Cardio) RHYTHM: regular rhythm HEART SOUNDS: S1 normal heart sound present and S2 normal heart sound present GI: COMMON NORMALS: Normal to inspection, nondistended, normoactive bowel sounds present, Soft to palpation and non-tender PALPATION: Yes Soft to palpation Extremity: COMMON NORMALS: no joint enlargement OTHER: RLE in knee immobilizer, compression dressing. Foot pumps on. Ankle warm, perfused. Neuro: COMMON NORMALS: patient oriented x3 and moves all extremities Skin: COMMON NORMALS: no rashes or lesions noted GENERAL SKIN EXAM: no jody hes or lesions noted Urinary Catheter Management^: Garcia: Cath Placed During This Visit: yes Reason for Continuing Indwelling Catheter: Perioperative Use in Selected Surgeries Urinary Catheter Date of Insertion: 08/29/20 Urinary Catheter Time of Insertion: 20:50 Data : 08/30/20 05:15 08/30/20 05:15 A&P Assessment and plan (1) Closed right femoral fracture: S/p open reduction, internal fixation right supracondylar femoral fracture 08/30. Continue postoperative care per orthopedic surgery. Status: Acute Qualifiers: Encounter type: initial encounter Femur location: distal, unspecified portion Fracture morphology: unspecified fracture morphology Qualified Code(s) : S72.401A - Unspecified fracture of lower end of right femur, initial encounter for closed fracture (2) Fever: Fever 100.2 this morning. No leukocytosis, no suggestion of sepsis. He denies any symptoms of coronavirus. Rapid COVID-19 test negative. UA with possible UTI, although not overly impressive, 5-10 WBCs. Does have microscopic hematuria, 40-50 RBCs. Possibly traumatic Garcia. But he does also report history of nonobstructing kidney stones in the past. He declines assessment by CT renal protocol. He is agreeable to at least assess with US kidneys and bladder to exclude any hydronephrosis. For now continues on cefazolin. We will follow-up urine culture. Continue follow-up with urology after discharge. Status: Acute (3) Fall: Patient is attributing his fall to losing balance on the ice, no syncope, seizure-like activities or chest pain Status: Acute Additional A&P Information Hypertension: Continue metoprolol. Change to cardiac diet. Monitor blood pressures. Takes occasional Advil for pain Attestations Medical Necessity Statement*: Continue admission for assessment of the following right femoral fracture and repair, fever. Coding Level of Care Code Acute Steaming Machine Operator for [facility] Fwd Diagnoses Closed right femoral fracture S72.401A Encounter type: initial encounter Femur location: distal, unspecified portion Fracture morphology: unspecified fracture morphology Fever R50.9 Fall W19.XXXA
[2020-08-30] MEDS: metoprolol tartrate 50 mg Tablet 25 MG PO (17:06)
--- NOTE | 2020-08-30 18:49 | PC.NURSE ---
SHIFT SUMMARY PATIENT HAS DONE VERY WELL TODAY. SURGICAL DRESSING IS C/D/I. GOOD NEUROVASCULAR CHECKS. GOOD URINE OUTPUT. PAIN WELL CONTROLLED.
[2020-08-31] VITALS: BP 128/71; PULSE 85; RESP 18; TEMP 37.8; O2SAT 93
[2020-08-31] MEDS: HYDROcodone-acetaminophen 5-325 mg Tablet 1 TAB PO ×4 (02:33→17:08)
[2020-08-31 03:33] LABS: Anion Gap 12.8 (5-19); Blood Urea Nitrogen 13 mg/dL (8-23); Carbon Dioxide 23 mmol/L (22-29); Chloride 103 mmol/L (98-107); Glucose 148 mg/dL (65-115); Osmolality Calculated 283 mOsm/kg (285-295); Potassium 3.8 mmol/L (3.5-5.1); Sodium 135 mmol/L (136-145)
[2020-08-31 03:36] LABS: Basophils % 0.4 %; Eosinophils # 0.1 10^3/uL (0.0-0.8); Eosinophils % 0.7 %; Hematocrit 32.9 % (42.0-52.0); Hemoglobin 10.4 g/dL (11.7-16.6); Lymphocytes # 1.2 10^3/uL (0.8-4.8); Lymphocytes % 11.2 %; Mean Corpuscular HGB Conc 31.6 g/dL (30.0-36.0); Mean Corpuscular Hemoglobin 28.7 pg (28.0-34.0); Mean Corpuscular Volume 90.6 fL (80-94); Mean Platelet Volume 10.6 fL (7.4-10.4); Monocytes # 1.1 10^3/uL (0.2-0.9); Monocytes % 10.9 %; Neutrophils # 7.96 10^3/uL (1.8-7.7); Neutrophils % 76.6 %; Nucleated Red Blood Cells % 0 %; Platelet Count 183 10^3/cmm (130-400); Red Blood Count 3.63 10^6/uL (4.1-5.3); White Blood Count 10.4 10^3/uL (4.0-10.0)
[2020-08-31 04:00] VITALS: BP 123/69; PULSE 76; RESP 18; TEMP 36.8; O2SAT 93
[2020-08-31] MEDS: dextrose 5%-sod chloride 0.45% 1,000 ML 75 ML IV (05:02)
[2020-08-31 07:59] VITALS: BP 148/67; PULSE 79; RESP 20; TEMP 37.1; O2SAT 93
[2020-08-31] MEDS: tamsulosin 0.4 mg Capsule PO (08:34)
[2020-08-31] MEDS: enoxaparin 40 mg/0.4 mL Syringe SUBCUT (08:35)
[2020-08-31] MEDS: metoprolol tartrate 50 mg Tablet 25 MG PO ×2 (08:35→17:08)
[2020-08-31] MEDS: chlorhexidine gluconate 0.12% Btl 473 mL 30 ML MUCOUS MEM ×4 (08:37→21:20)
--- NOTE | 2020-08-31 09:49 | PC.CHAP ---
Pastoral Care Encounter/Spiritual Assessment Type of Contact [] Declined pain management physician visit [] Patient/Family/Request visit [] Outpatient visit [] Follow-up visit [] Physician referral [] Code/Alert [x] Routine visit [] Staff referral [] Actively dying [] Patient sleeping [] Family support [] [] Out of room [] Palliative care [] [] Receiving care in room [] Pre-surgical visit [] Trauma [] Long length of stay [] ICU visit [] Other: Relational/Emotional Strength [x] Patient feels connected with others/family/visitors/staff [] Distress [] Loneliness/isolation [] Abandonment Spirituality of Patient [x] Person of Adali [x] Attends Nondenominational of their Adali [] Believes in Prayer [] Reads Bible or Episcopal materials [] There are Spiritual issues to be addressed Medical Care Manager Interventions [x] Prayer [x] Active listening [] Non-anxious presence [] Spiritual/emotional support [] Crisis/trauma care [] Spiritual counseling [] Bereavement support [] Provided bereavement packet [] Provided Bible/devotional materials [] Provided toy/stuffed animal, coloring book to patient or family member [] Provided Communion [] Anointing/[place] [] Salvation [x] Completed spiritual assessment [] Other: Impact on Illness or Injury [] Angry [] Fearful [] Anxious [] Often cries [] Exhaustion [] Unable to work [] Unable to attend church [] Unable to walk/stand [] Unable to read [] Unable to drive [] Unable to eat/drink [] Unable to sleep [] Unable to be with family [] Patient intubated [] Other: Summary patient tarun cage pain Time spent with patient 10 min
[2020-08-31 11:33] VITALS: BP 159/80; PULSE 79; RESP 20; TEMP 36.8; O2SAT 95
--- NOTE | 2020-08-31 12:28 | P.PN_ITS ---
Subjective Subjective: Interval history: Pain ok. Up with therapy. Good po intake. Unable to pass urine yet Vitals/I&O/Wt Last Vital Signs Temp 98.2 F 08/31/20 11:33 Pulse 79 08/31/20 11:33 Resp 20 H 08/31/20 11:33 BP 159/80 08/31/20 11:33 Pulse Ox 95 08/31/20 11:33 08/30/20 08/31/20 08/31/20 22:59 06:59 14:59 Intake Total 1280 / 1620 1187.5 / 2807.5 Output Total 300 / 1250 850 / 2100 Balance 980 / 370 337.5 / 707.5 Weight last 48 hrs Weight 186 lb Physical Exam Narrative: EXAM NARRATIVE: Right knee dressing clean and dry. Urinary Catheter Management^: Garcia: Cath Placed During This Visit: yes, but has since been removed by the nurse Reason for Continuing Indwelling Catheter: Decision to DC Catheter Urinary Catheter Date of Insertion: 08/29/20 Urinary Catheter Time of Insertion: 20:50 Date Urinary Catheter Removed: 08/31/20 Time Urinary Catheter Discontinued: 06:30 Data : 08/31/20 02:05 08/31/20 02:05 Micro: Microbiology 08/30/20 12:30 Urine Culture - Preliminary Urine,Clean Catch A&P Assessment and plan (1) Supracondylar fracture of right femur: Status: Acute (2) Postoperative state: Continue to mobilize with therapy. Status: Acute Attestations Medical Necessity Statement*: Home when independent with walker and ok with medicine Coding Level of Care Code Acute Packaging Machine Supplies Distributor for gavino Natarajan Diagnoses Supracondylar fracture of right femur S72.451A Postoperative state Z98.890
[2020-08-31 16:00] VITALS: BP 123/70; PULSE 78; RESP 18; TEMP 37.9; O2SAT 90
--- NOTE | 2020-08-31 19:08 | PM.PN ---
Subjective Subjective: Interval history: Today he is doing better. Says that his leg occasionally gives him some pain, but pain is much better than yesterday. Denies headache, nausea or vomiting. Denies shortness of breath. Weaned down to room air this afternoon. Denies chest pain or pressure. No cough. No abdominal discomfort or diarrhea. Vitals/I&O/Wt Last Vital Signs Temp 100.2 F H 08/31/20 16:00 Pulse 78 08/31/20 16:00 Resp 18 08/31/20 16:00 BP 123/70 08/31/20 16:00 Pulse Ox 90 08/31/20 16:00 08/31/20 08/31/20 08/31/20 06:59 14:59 22:59 Intake Total 1187.5 / 2807.5 Output Total 850 / 2100 200 / 200 200 / 400 Balance 337.5 / 707.5 -200 / -200 -200 / -400 Physical Exam Const: COMMON NORMALS: no acute distress, patient oriented x3 and alert GENERAL APPEARANCE: cooperative NUTRITIONAL APPEARANCE: overweight ORIENTATION/CONSCIOUSNESS: Yes awake HENMT: COMMON NORMALS: oropharynx normal Neck/C-Spine: COMMON NORMALS: no JVD Resp: COMMON NORMALS: normal respiratory effort and clear to auscultation bilaterally AUSCULTATION: clear to auscultation bilaterally Cardio: COMMON NORMALS: no JVD, regular rhythm, S1 normal heart sound present, S2 normal heart sound present and No murmurs present (Cardio) RHYTHM: regular rhythm HEART SOUNDS: S1 normal heart sound present and S2 normal heart sound present GI: COMMON NORMALS: Normal to inspection, nondistended, normoactive bowel sounds present, Soft to palpation and non-tender PALPATION: Yes Soft to palpation Extremity: COMMON NORMALS: no joint enlargement OTHER: RLE in knee immobilizer, compression dressing. Foot pumps on. Ankle warm, perfused. Neuro: COMMON NORMALS: patient oriented x3 and moves all extremities SENSORIUM/ORIENTATION: Yes alert Skin: COMMON NORMALS: no rashes or lesions noted GENERAL SKIN EXAM: no rashes or lesions noted Urinary Catheter Management^: Garcia: Cath Placed During This Visit: yes, but has since been removed by the nurse Reason for Continuing Indwelling Catheter: Decision to DC Catheter Urinary Catheter Date of Insertion: 08/29/20 Urinary Catheter Time of Insertion: 20:50 Date Urinary Catheter Removed: 08/31/20 Time Urinary Catheter Discontinued: 06:30 Data : 08/31/20 02:05 08/31/20 02:05 Micro: Microbiology 08/30/20 12:30 Urine Culture - Preliminary Urine,Clean Catch A&P Assessment and plan (1) Fever: Again fever 100.2 Fahrenheit today. He actually denies any respiratory symptoms. Denies any headache, no nausea or vomiting no diarrhea. Does not appear to have any ongoing COVID-19 symptoms. Rapid COVID-19 test was negative. Garcia catheter was removed today with finding of some foul-smelling urine. UTI is still suspected. At this time he is agreeable to transition to ciprofloxacin for treatment. In case of development of any covid symptoms, will request PCR. US kidneys and bladder did not show any hydronephrosis. For now continues on cefazolin. We will follow-up urine culture. Continue follow-up with urology after discharge. Status: Acute (2) Closed right femoral fracture: Doing well. Nearing possible discharge soon from this perspective. S/p open reduction, internal fixation right supracondylar femoral fracture 08/30. Continue postoperative care per orthopedic surgery. Status: Acute Qualifiers: Encounter type: initial encounter Femur location: distal, unspecified portion Fracture morphology: unspecified fracture morphology Qualified Code(s): S72.401A - Unspecified fracture of lower end of right femur, initial encounter for closed fracture (3) Fall: Patient is attributing his fall to losing balance on the ice, no syncope, seizure-like activities or chest pain Status: Acute Additional A&P Information Hypertension: Continue metoprolol. Change to cardiac diet. Monitor blood pressures. Takes occasional Advil for pain Attestations Medical Necessity Statement*: Continue admission for assessment management of fever, UTI, status post right femoral fracture and repair. Coding Level of Care Code Acute Crime Prevention Police Officer for [facility] Fwd Diagnoses Fever R50.9 Closed right femoral fracture S72.401A Encounter type: initial encounter Femur location: distal, unspecified portion Fracture morphology: unspecified fracture morphology Fall W19.XXXA
--- NOTE | 2020-08-31 19:21 | PC.NURSE ---
DR. ESCOBEDO CONTACTED THIS NURSE AND STATED THAT IF PATIENT REQUIRES OXYGEN THERAPY THROUGH THE NIGHT TO DO A PCR COVID TEST ON HIM. IF PATIENT REFUSES SWAB, ISOLATE PATIENT AND PLACE ON DROPLET AND CONTACT PRECAUTIONS. PATIENT STARTED ON ANTIBIOTICS FOR UTI. ENCOURAGING DEEP BREATHING AND COUGHING.
[2020-08-31 19:50] VITALS: BP 125/75; PULSE 78; RESP 18; TEMP 37.9; O2SAT 90
[2020-08-31] MEDS: ciprofloxacin 500 mg Tablet 250 MG PO (21:19)
[2020-09-01] VITALS (7 sets, daily range): BP systolic 111–158; BP diastolic 53–89; PULSE 69–92; RESP 16–18; TEMP 36.5–37.7; O2SAT 92–97
--- NOTE | 2020-09-01 01:53 | PC.NURSE ---
Patient wanted to use the restroom so I asked if he wanted the urinal, he said no. He then stated he needed to use the restroom so then I offered the BSC and patient refused. He stated that he walked earlier that day with PT and could walk to the restroom. After assisting patient out of bed and he took 3 steps, I did not feel comfortable about him walking to bathroom. I then told the patient to turn around and sit on edge of bed to use urinal, he refused and patient would not move. He continued to walk to the bathroom after I tried to redirect him several times. After reaching the bathroom he used the hand rail and back of toilet to stand up. I then offered to hold urinal while he braced himself and he refused. Patient was very weak. He wanted me to step out of the bathroom while he went but I did not feel comfortable. I called for help and another nurse came to assist. She also tried to redirect the patient about us helping him use the bathroom but patient refused. Both nurses stepped outside the bathroom and let the patient urinate. After getting done we pulled chair up to the bathroom and let patient sit in chair and both nurses pulled the chair and patient back to the bed and assisted him back in bed.
[2020-09-01 03:05] LABS: Alanine Aminotransferase 6 U/L (0-41); Albumin Level 3.1 g/dL (3.5-5.2); Alkaline Phosphatase 63 IU/L (40-130); Anion Gap 12.1 (5-19); Aspartate Amino Transferase 20 U/L (0-40); Blood Urea Nitrogen 15 mg/dL (8-23); Calcium 8.1 mg/dL (8.5-10.5); Carbon Dioxide 24 mmol/L (22-29); Chloride 104 mmol/L (98-107); Globulin 2.7 g/dL (1.3-4.6); Glucose 170 mg/dL (65-115); Osmolality Calculated 287 mOsm/kg (285-295); Potassium 4.1 mmol/L (3.5-5.1); Sodium 136 mmol/L (136-145); Total Bilirubin 0.7 mg/dL (0.15-1.2); Total Protein 5.8 g/dL (6.6-8.7)
[2020-09-01 03:10] LABS: Basophils % 0.4 %; Eosinophils # 0.2 10^3/uL (0.0-0.8); Eosinophils % 1.9 %; Hematocrit 30.5 % (42.0-52.0); Hemoglobin 9.7 g/dL (11.7-16.6); Lymphocytes # 0.9 10^3/uL (0.8-4.8); Lymphocytes % 9.5 %; Mean Corpuscular HGB Conc 31.8 g/dL (30.0-36.0); Mean Platelet Volume 10.4 fL (7.4-10.4); Monocytes # 0.9 10^3/uL (0.2-0.9); Monocytes % 9.8 %; Neutrophils # 6.96 10^3/uL (1.8-7.7); Nucleated Red Blood Cells % 0 %; Platelet Count 159 10^3/cmm (130-400); Red Blood Count 3.35 10^6/uL (4.1-5.3); Red Cell Distribution Width 13.1 % (12.1-15.1); White Blood Count 8.9 10^3/uL (4.0-10.0)
--- NOTE | 2020-09-01 08:09 | USCV_ITS ---
Zaki Segura Age: 79 Gender: M : 1940 Exam Date: 09/01/2020 13:47 Ordering Phys: Juan Wells MD Technologist: Melissa Haley Exam Location: [facility] [place] Indication: FEVER PROCEDURES: Venous duplex imaging was performed in bilateral lower extremities. The following venous structures were evaluated: common femoral vein, profunda vein, proximal portion of the greater saphenous vein, superficial femoral vein, and the popliteal vein. In addition, the posterior tibial and peroneal trunk were evaluated. Serial compression, augmentation maneuvers, and spectral Doppler flow evaluation were performed. FINDINGS: Normal 2-D Doppler and augmentation and compressibility throughout the lower extremity venous structures. Additional imaging through the proximal calf veins also reveals no thrombus. Limited evaluation of the greater saphenous vein is patent with no thrombus. CONCLUSIONS No DVT bilateral lower extremities. Dr. Zulma Rojo DO (Electronically Signed) Final Date: 01 September 2020 14:51 S
--- NOTE | 2020-09-01 08:10 | XR_ITS ---
WS: [id number] RIGHT ANKLE: 3 VIEW(S) TECHNIQUE: AP, oblique(s) and lateral. HISTORY: fall, pain COMPARISON: None available. Acute nondisplaced fracture at the distal fibula. Fracture extends obliquely through the fibula. No t ibial fracture. Mild narrowing of the joint spaces from arthritis. No widening of the ankle mortise. Moderate diffuse soft tissue edema. XR/XR ankle RT min 3V* [id number] IMPRESSION: Acute nondisplaced oblique fracture distal fibula.
[2020-09-01] MEDS: tamsulosin 0.4 mg Capsule PO (08:12)
[2020-09-01] MEDS: ciprofloxacin 500 mg Tablet 250 MG PO ×2 (08:13→21:56)
[2020-09-01] MEDS: mupirocin oint 22 gm 1 APPLIC NASAL ×2 (08:13→17:29)
[2020-09-01] MEDS: sennosides-docusate Tablet 1 TAB PO (08:13)
[2020-09-01] MEDS: metoprolol tartrate 50 mg Tablet 25 MG PO ×2 (08:13→17:28)
[2020-09-01] MEDS: chlorhexidine gluconate 0.12% Btl 473 mL 30 ML MUCOUS MEM ×3 (10:39→17:29)
[2020-09-01] MEDS: enoxaparin 40 mg/0.4 mL Syringe SUBCUT (10:39)
--- NOTE | 2020-09-01 12:54 | PC.SOCIAL ---
dietary services manager gave IMM update to patient's , Patti via phone on 09/01/20 @ 12:55pm Initialed, dated, timed and placed in chart.
--- NOTE | 2020-09-01 13:36 | P.PN_ITS ---
Subjective Subjective: Interval history: Expected right femur pain. Up with therapy. Progress slow with limited WB complains of some ankle pain with compression device Vitals/I&O/Wt Last Vital Signs Temp 98.9 F 09/01/20 11:59 Pulse 90 09/01/20 11:59 Resp 16 09/01/20 11:59 BP 157/76 09/01/20 11:59 Pulse Ox 97 09/01/20 11:59 08/31/20 09/01/20 09/01/20 22:59 06:59 14:59 Intake Total 0 / 0 240 / 240 Output Total 200 / 400 200 / 600 Balance -200 / -400 -200 / -600 240 / 240 Physical Exam Narrative: EXAM NARRATIVE: Minimal swelling thigh and knee. Incisions clean and free of discharge Mild tenderness right lateral malleolus. Diffuse swelling about ankle. Urinary Catheter Management^: Garcia: Cath Placed During This Visit: yes, but has since been removed by the nurse Reason for Continuing Indwelling Catheter: Decision to DC Catheter Urinary Catheter Date of Insertion: 08/29/20 Urinary Catheter Time of Insertion: 20:50 Date Urinary Catheter Removed: 08/31/20 Time Urinary Catheter Discontinued: 06:30 Data : 09/01/20 02:26 09/01/20 02:26 Micro: Microbiology 08/30/20 12:30 Urine Culture - Final Urine,Clean Catch A&P Assessment and plan (1) Postoperative state: Status: Acute (2) Supracondylar fracture of right femur: Status: Acute (3) Fracture of right ankle, lateral malleolus: Patient to be limited weightbearing on his right lower extremity from his femurs. I have suggested a stirrup style splint and weightbearing as tolerated on the right ankle. Status: Acute Attestations Medical Necessity Statement*: As per medicine Coding Level of Care Code Acute Ditcher Operator for Alvin Natarajan Diagnoses Postoperative state Z98.890 Supracondylar fracture of right femur S72.451A Fracture of right ankle, lateral malleolus S82.61XA
[2020-09-01] MEDS: HYDROcodone-acetaminophen 5-325 mg Tablet 1 TAB PO (15:12)
--- NOTE | 2020-09-01 15:12 | PC.NURSE ---
Pt belongings given to from [facility].
--- NOTE | 2020-09-01 20:02 | PM.PN ---
Subjective Subjective: Interval history: She is continue to improve. Discussed with him again fever last night. So far through the day has been afebrile. He is feeling well. Denies any headache, any shortness of breath. Weaned down to room air. No nausea vomiting or diarrhea. Symptoms in the right leg continue to improve. Overall he says he is doing very well, for now prefers not to pursue additional more invasive investigation given he is improving. She understands that so far there is no growth on urine culture, although urine is still suspect as the source of infection. Objectively discussed also possibility of fever from multiple fractures, although this I would expect would be less common. Discussed results of venous duplex which was negative for DVT. Vitals/I&O/Wt Last Vital Signs Temp 99.1 F 09/01/20 15:32 Pulse 92 09/01/20 15:32 Resp 18 09/01/20 15:32 BP 149/76 09/01/20 15:32 Pulse Ox 96 09/01/20 15:32 09/01/20 09/01/20 09/01/20 06:59 14:59 22:59 Intake Total 240 / 240 360 / 600 Output Total 200 / 600 Balance -200 / -600 240 / 240 360 / 600 Physical Exam Const: COMMON NORMALS: no acute distress, patient oriented x3 and alert GENERAL APPEARANCE: cooperative NUTRITIONAL APPEARANCE: overweight ORIENTATION/CONSCIOUSNESS: Yes awake HENMT: COMMON NORMALS: oropharynx normal Neck/C-Spine: COMMON NORMALS: no JVD Resp: COMMON NORMALS: normal respiratory effort and clear to auscultation bilaterally AUSCULTATION: clear to auscultation bilaterally Cardio: COMMON NORMALS: no JVD, regular rhythm, S1 normal heart sound present, S2 normal heart sound present and No murmurs present (Cardio) RHYTHM: regular rhythm HEART SOUNDS: S1 normal heart sound present and S2 normal heart sound present GI: COMMON NORMALS: Normal to inspection, nondistended, normoactive bowel sounds present, Soft to palpation and non-tender PALPATION: Yes Soft to palpation Extremity: COMMON NORMALS: no joint enlargement OTHER: RLE in knee immobilizer removed, clean dressing lateral right thigh. No bleeding. No drainage. Surrounding swelling, erythema. Neuro: COMMON NORMALS: patient oriented x3 and moves all extremities SENSORIUM/ORIENTATION: Yes alert Skin: COMMON NORMALS: no rashes or lesions noted GENERAL SKIN EXAM: no rashes or lesions noted Urinary Catheter Management^: Garcia: Cath Placed During This Visit: yes, but has since been removed by the nurse Reason for Continuing Indwelling Catheter: Decision to DC Catheter Urinary Catheter Date of Insertion: 08/29/20 Urinary Catheter Time of Insertion: 20:50 Date Urinary Catheter Removed: 08/31/20 Time Urinary Catheter Discontinued: 06:30 Data : 09/01/20 02:26 09/01/20 02:26 Micro: Microbiology 08/30/20 12:30 Urine Culture - Final Urine,Clean Catch A&P Assessment and plan (1) Fever: Discussed with him again possible differential diagnosis, including suspected urinary tract infection, for which she agrees to continue treatment this time. Does not have any respiratory, GI, or other integumentary complaints. Does have multiple fractures. Discussed with him regarding other possibilities of infection, although with initiation of ciprofloxacin last night, fever now appears to be improving, and so far afebrile today. We will monitor additionally through today. He understands to maintain vigilance in case there are any other concerning symptoms after discharge that may indicate an return of occult infection, although at this time this should be less likely. We discussed consideration of additional more invasive testing. He prefers to take the more conservative approach and monitor. US kidneys and bladder did not show any hydronephrosis. Appears to have responded well to Cipro. Complete course. Continue follow-up with urology after discharge. Status: Acute (2) Closed right femoral fracture: Doing well. Nearing possible discharge soon from this perspective. S/p open reduction, internal fixation right supracondylar femoral fracture 08/30. Continue postoperative care per orthopedic surgery. Status: Acute Qualifiers: Encounter type: initial encounter Femur location: distal, unspecified portion Fracture morphology: unspecified fracture morphology Qualified Code(s): S72.401A - Unspecified fracture of lower end of right femur, initial encounter for closed fracture (3) Fall: Patient is attributing his fall to losing balance on the ice, no syncope, seizure-like activities or chest pain Status: Acute (4) Fracture of right ankle, lateral malleolus: Status: Acute Additional A&P Information Hypertension: Continue metoprolol. Change to cardiac diet. Monitor blood pressures. Takes occasional Advil for pain Attestations Medical Necessity Statement*: Continue admission for assessment management of fever following right femoral, right lateral malleolar fractures, repair, UTI. 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
[2020-09-02 02:28] LABS: Basophils % 0.4 %; Eosinophils # 0.1 10^3/uL (0.0-0.8); Eosinophils % 1.8 %; Hematocrit 30.8 % (42.0-52.0); Hemoglobin 9.7 g/dL (11.7-16.6); Lymphocytes # 0.9 10^3/uL (0.8-4.8); Lymphocytes % 12.1 %; Mean Corpuscular HGB Conc 31.5 g/dL (30.0-36.0); Mean Corpuscular Hemoglobin 28.9 pg (28.0-34.0); Mean Corpuscular Volume 91.7 fL (80-94); Mean Platelet Volume 10.2 fL (7.4-10.4); Monocytes # 0.8 10^3/uL (0.2-0.9); Monocytes % 10.2 %; Neutrophils # 5.49 10^3/uL (1.8-7.7); Nucleated Red Blood Cells % 0 %; Platelet Count 185 10^3/cmm (130-400); Red Blood Count 3.36 10^6/uL (4.1-5.3); Red Cell Distribution Width 12.9 % (12.1-15.1); White Blood Count 7.3 10^3/uL (4.0-10.0)
[2020-09-02 02:44] LABS: Alanine Aminotransferase 7 U/L (0-41); Albumin Level 3.4 g/dL (3.5-5.2); Alkaline Phosphatase 66 IU/L (40-130); Aspartate Amino Transferase 20 U/L (0-40); Blood Urea Nitrogen 19 mg/dL (8-23); Calcium 8.2 mg/dL (8.5-10.5); Carbon Dioxide 26 mmol/L (22-29); Chloride 101 mmol/L (98-107); Glucose 124 mg/dL (65-115); Osmolality Calculated 286 mOsm/kg (285-295); Sodium 136 mmol/L (136-145); Total Bilirubin 0.8 mg/dL (0.15-1.2); Total Protein 6.4 g/dL (6.6-8.7)
[2020-09-02 05:12] VITALS: BP 146/74; PULSE 86; RESP 18; TEMP 37.2; O2SAT 95
[2020-09-02 07:37] VITALS: BP 157/88; PULSE 80; RESP 18; TEMP 37.2; O2SAT 95
--- NOTE | 2020-09-02 07:38 | PC.NURSE ---
pt stated he did not want to get up out of bed to eat breakfast.
[2020-09-02] MEDS: mupirocin oint 22 gm 1 APPLIC NASAL (08:30)
[2020-09-02] MEDS: metoprolol tartrate 50 mg Tablet 25 MG PO (08:30)
[2020-09-02] MEDS: tamsulosin 0.4 mg Capsule PO (08:30)
[2020-09-02] MEDS: chlorhexidine gluconate 0.12% Btl 473 mL 30 ML MUCOUS MEM (08:30)
[2020-09-02] MEDS: HYDROcodone-acetaminophen 5-325 mg Tablet 1 TAB PO (08:31)
[2020-09-02] MEDS: ciprofloxacin 500 mg Tablet 250 MG PO (08:31)
[2020-09-02] MEDS: sennosides-docusate Tablet 1 TAB PO (08:31)
[2020-09-02] MEDS: enoxaparin 40 mg/0.4 mL Syringe SUBCUT (10:38)
[2020-09-02 11:41] VITALS: BP 159/66; PULSE 75; RESP 18; TEMP 36.7; O2SAT 97
--- NOTE | 2020-09-02 12:22 | PM.DCS ---
Discharge Providers Date of Admission: 08/29/20 19:48 Date of Discharge: September 02, 2020 Attending Provider at Admission: Suzette Álvarez MD Attending Provider at Discharge: Juan Wells Primary Care Provider: Darci Frances DO Diagnoses at Discharge Discharge Diagnosis (1) Fever: Status: Acute (2) Closed right femoral fracture: Status: Acute Qualifiers: Encounter type: initial encounter Femur location: distal, unspecified portion Fracture morphology: unspecified fracture morphology Qualified Code(s): S72.401A - Unspecified fracture of lower end of right femur, initial encounter for closed fracture (3) Fall: Status: Acute (4) Fracture of right ankle, lateral malleolus: Status: Acute Reason for Visit Reason for Visit: FALL / KNOT ON KNEE Hospital Course Hospital Course Pleasant 79-year-old gentleman with history of kidney stones, bladder stone, BPH, urethral stricture, urolithiasis, following with urology, slipped and fell on ice the evening of admission, resulting in fractures of right lower extremity. He was assessed by orthopedics, and taken for operative repair with open reduction internal fixation of the right supracondylar femoral fracture. He was noted having low-grade fever, 100.2, was assessed by rapid COVID-19 test which was negative. He denied any other COVID-19 symptoms. Chest x-ray not suggestive of pneumonia. As fever had recurred, was also assessed by urine studies. Urine was noted foul-smelling, and UA was suspicious for urinary tract infection, with noted trace leukocyte esterase, 40-50 RBC, 5-10 WBC, 3+ bacteria. Urine culture unfortunately was unrevealing. Reported history of nephrolithias, and with fever was asssessed by renal ultrasound without finding of hydronephrosis, with mild atrophy and cortical thinning of the right kidney. Small left renal cyst. Lower extremity venous duplex was obtained and was negative for DVT. He was having some pain in the right ankle as well, and on x-ray assessment was noted to have acute nondisplaced oblique fracture of the distal fibula which was assessed by orthopedics. Right ankle brace was placed. Per orthopedic recommendations limited weightbearing on right lower extremity with femoral fracture. As tolerated on the right ankle. His fever resolved after initiation of ciprofloxacin for suspected UTI. He remained without other symptoms to suggest other source of infection. Blood culture was obtained, and so far remains negative. He so far remains afebrile since the evening on 08/31. He is feeling well. He is eager to proceed to rehabilitation at SNF prior to returning home. Maintain knee and ankle brace which he can remove at rest for comfort. Change dressing as needed until follow-up in office per orthopedic recommendations. Physical Exam Const: COMMON NORMALS: no acute distress, patient oriented x3 and alert GENERAL APPEARANCE: cooperative and comfortable ORIENTATION/CONSCIOUSNESS: Yes awake HENMT: COMMON NORMALS: oropharynx normal Neck/C-Spine: COMMON NORMALS: no JVD Resp: COMMON NORMALS: normal respiratory effort and clear to auscultation bilaterally AUSCULTATION: clear to auscultation bilaterally Cardio: COMMON NORMALS: no JVD, regular rhythm, S1 normal heart sound present, S2 normal heart sound present and No murmurs present (Cardio) RHYTHM: regular rhythm HEART SOUNDS: S1 normal heart sound present and S2 normal heart sound present GI: COMMON NORMALS: Normal to inspection, nondistended, normoactive bowel sounds present, Soft to palpation and non-tender PALPATION: Yes Soft to palpation Extremity: COMMON NORMALS: no joint enlargement and no pedal edema OTHER: R leg minimal swelling, R dressing clean, no bleeding or drainage. Right lower extremity warm and perfused. Neuro: COMMON NORMALS: patient oriented x3 and moves all extremities SENSORIUM/ORIENTATION: Yes alert Skin: COMMON NORMALS: no rashes or lesions noted GENERAL SKIN EXAM: no rashes or lesions noted Urinary Catheter Management^: Garcia: Cath Placed During This Visit: yes, but has since been removed by the nurse Reason for Continuing Indwelling Catheter: Decision to DC Catheter Urinary Catheter Date of Insertion: 08/29/20 Urinary Catheter Time of Insertion: 20:50 Date Urinary Catheter Removed: 08/31/20 Time Urinary Catheter Discontinued: 06:30 Discharge Data Data Completed and Pending: Completed Studies During Hospitalization Category Date Time Status XR ankle RT min 3 V* [id number] Routine Exams 09/01/20 08:10 Completed XR chest 1V claudia ble [id number] Stat Exams 08/29/20 19:29 Completed XR femur RT min 2 V* [id number] Routine Exams 08/30/20 Completed XR knee RT 3V* [id number] Stat Exams 08/29/20 18:57 [place] [id number] Routin e Ultrasound 09/01/20 08:09 Completed US renal BI* [id number] Routine Ultrasound 08/30/20 16:21 Completed Pending at discharge Category Date Time Status Blood Culture Sta t Lab 09/01/20 20:11 Results Comprehensive Met abolic Panel AM LA BS Lab 09/03/20 04:00 Ordered Labs from last 24 hours 09/02/20 09/02/20 01:50 01:50 WBC 7.3 RBC 3.36 L Hgb 9.7 L Hct 30.8 L MCV 91.7 MCH 28.9 MCHC 31.5 RDW 12.9 Plt Count 185 MPV 10.2 Neut % (Auto) 75.0 Lymph % (Auto) 12.1 [place] % (Auto) 10.2 Eos % (Auto) 1.8 Baso % (Auto) 0.4 Neut # (Auto) 5.49 Lymph # (Auto) 0.9 [place] # (Auto) 0.8 Eos # (Auto) 0.1 Baso # (Auto) 0.0 Nucleated RBC % (a uto) 0 Nucleated RBCs # 0.0 Sodium 136 Potassium 4.0 Chloride 101 Carbon Dioxide 26 Anion Gap 13.0 BUN 19 Creatinine 1.1 GFR Calculation Not Reportable Glucose 124 H Calculated Osmolal ity 286 Calcium 8.2 L Total Bilirubin 0.8 AST 20 ALT 7 Alkaline Phosphata se 66 Total Protein 6.4 L Albumin 3.4 L Globulin 3.0 Vitals: Last Vital Signs Temp 98.1 F 09/02/20 11:41 Pulse 75 09/02/20 11:41 Resp 18 09/02/20 11:41 BP 159/66 09/02/20 11:41 Pulse Ox 97 09/02/20 11:41 Discharge Plan Discharge Patient Disposition: Xfer [facility] Condition: Stable Prescriptions: New hydrocodone-acetaminophen 5-325 mg Tablet 1 tab PO Q4H PRN (Reason: Moderate Pain) Qty: 12 RF: 0 sennosides-docusate sodium 8.6-50 mg Tablet 1 tab PO DAILY Qty: 30 RF: 0 ciprofloxacin HCl 500 mg Tablet 250 mg PO BID@0900,2100 Qty: 7 RF: 0 enoxaparin 40 mg/0.4 mL Syringe 40 mg SUBCUT Q24H 10 Days Qty: 4 RF: 0 Continued metoprolol tartrate 50 mg tablet 50 mg PO DAILY RF: 0 chlorpheniramine maleate 4 mg tablet 4 mg PO Q12H PRN (Reason: allergies) RF: 0 tamsulosin 0.4 mg capsule 0.4 mg PO DAILY Qty: 90 RF: 3 Held ciprofloxacin HCl 500 mg tablet 500 mg PO BID RF: 0 Hold Instructions: Resume on 09/09/20. Discharge Orders: Discharge Order (Routine); Ordered 09/02/20 Ordered By: Juan Wells Referrals: Darci Frances DO [Primary Care Provider] - 4-7 days Pako Van MD [Physician] - 2 weeks Discharge Diet: Cardiac Discharge Activity: Limit activity as instructed and As per PT/OT instructions Activity Restrictions/Additional Instructions: Touchdown weightbearing on his right lower extremity from his femurs. Knee brace. Ankle brace. At rest may take off for comfort. Change dressing as needed until follow with ortho. Fever has resolved, suspected secondary to UTI, although no growth on culture. Complete course of ciprofloxacin. Resume follow-up with urology. 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
[2020-09-02 16:54] VITALS: BP 159/66; PULSE 75; RESP 18; TEMP 36.7; O2SAT 97
== END 2020-09-02 16:55 | disposition skilled nursing facility (03) | DRG 481 ==
LOC: ER 20:26 → MEDSURG 21:45
PROVIDERS: Orthopaedic Surgery; Admitting Provider Internal Medicine; Emergency Provider Emergency Medicine; PCP Electrodiagnostic Medicine; Visit Provider Internal Medicine
PROC: 0QS604Z Reposition Right Upper Femur with Internal Fixation Device, Open Approach (ICD-10-PCS; principal; 2020-08-30 07:00)
DX: S72.21XA Displaced subtrochanteric fracture of right femur, initial encounter for closed fracture (principal); N13.8 Other obstructive and reflux uropathy; N39.0 Urinary tract infection, site not specified; Q61.01 Congenital single renal cyst; S82.61XA Displaced fracture of lateral malleolus of right fibula, initial encounter for closed fracture; W00.0XXA Fall on same level due to ice and snow, initial encounter; I10 Essential (primary) hypertension; N40.1 Benign prostatic hyperplasia with lower urinary tract symptoms; Z87.442 Personal history of urinary calculi; Z90.79 Acquired absence of other genital organ(s); Z87.891 Personal history of nicotine dependence
CPT/HCPCS: 36415; 51702; 71045; 73552; 73562; 73610; 76000; 76770; 76857; 80048; 80053; 81001; 85025; 85610; 87040; 87086; 87426; 93005; 93970; 96372; 96374; 96375; 97110; 97116; 97161; 97166; 97530; 97535; 97760; 99285; C1713; J0131; J0690; J1170; J1580; J1650; J2270; J2405; J2704; J3010; J3490; J7030; J7799; L4350

== ENCOUNTER → 2020-09-20 09:17 | Outpatient (BNVA) | payer MEDICARE, SELFPAY | PROVIDERS: PCP Electrodiagnostic Medicine; Visit Provider Orthopaedic Surgery | DX: Z48.89 Encounter for other specified surgical aftercare (principal) | CPT/HCPCS: 73552 ==

== ENCOUNTER 2020-09-24 20:33 | Inpatient (IN) | payer MEDICARE, SELFPAY ==
[2020-09-24 20:37] VITALS: BP 120/80; PULSE 82; RESP 22; TEMP 37.6; O2SAT 90; BMI 29.0
--- NOTE | 2020-09-24 21:13 | XRR_ITS ---
PROCEDURE INFORMATION: Exam: XR Chest Exam date and time: 09/24/2020 9:38 PM Age: 79 years old Clinical indication: Dyspnea; Additional info: Reduced breath sounds/ fever TECHNIQUE: Imaging protocol: XR of the chest Views: 1 view. COMPARISON: CR XR chest 1V portable [id number] 08/29/2020 7:24 PM FINDINGS: Lungs: Mild to moderate interstitial opacities throughout both lungs, increased from prior study. This is consistent with atypical/viral pneumonia. Pulmonary vascular congestion is a conceivable alternative. Pleural spaces: No visible pneumothorax. Small right pleural effusion, new. Heart/Mediastinum: Heart size within normal limits. Bones/joints: No emergent findings identified. XR/XR chest 1V portable [id number] IMPRESSION: 1. Mild to moderate interstitial opacities throughout both lungs, increased from prior study. This is consistent with atypical/viral pneumonia. Pulmonary vascular congestion is a conceivable alternative. 2. Small right pleural effusion, new.
--- NOTE | 2020-09-24 21:15 | ECG_ITS ---
[facility] Test Date: 2020-09-24 Pat Name: Zaki Segura Department: Room: Gender: Male Copy Chaser: : 1940 Requested By: Alcides Ruano Order Number: [id number] Javi MD: Jemma Gupta M.D. Measurements Intervals Alva Rate: 79 P: 1 ND: 172 QRS: -40 QRSD: 141 T: 38 QT: 385 QTc: 443 Interpretive Statements SINUS RHYTHM LEFT AXIS DEVIATION [QRS AXIS < -30] RIGHT BUNDLE BRANCH BLOCK [120+ ms QRS DURATION, UPRIGHT V1, 40+ ms S IN I/aVL/V4/V5/V6] Compared to ECG 08/29/2020 19:37:09 Left-axis deviation now present Myocardial infarct finding no longer present Electronically Signed On 09-25-2020 22:38:44 CDT by Jemma Gupta M.D. [email or web address]
[2020-09-24 21:30] LABS: Basophils % 0.3 %; Hematocrit 36.9 % (42.0-52.0); Hemoglobin 11.5 g/dL (11.7-16.6); Lymphocytes # 0.7 10^3/uL (0.8-4.8); Mean Corpuscular HGB Conc 31.2 g/dL (30.0-36.0); Mean Corpuscular Hemoglobin 27.4 pg (28.0-34.0); Mean Corpuscular Volume 88.1 fL (80-94); Mean Platelet Volume 10.9 fL (7.4-10.4); Monocytes # 0.4 10^3/uL (0.2-0.9); Monocytes % 10.4 %; Neutrophils % 70.8 %; Nucleated Red Blood Cells % 0 %; Platelet Count 203 10^3/cmm (130-400); Red Blood Count 4.19 10^6/uL (4.1-5.3); Red Cell Distribution Width 13.6 % (12.1-15.1)
--- NOTE | 2020-09-24 21:31 | ED_ITS ---
Documented by User: Alcides Ruano MD 09/27/20 11:18 HPI - Weakness General: Chief complaint: Weakness Stated complaint: WEAKNESS Time Seen by Provider: 09/24/20 20:49 History of Present Illness: HPI Narrative: The patient is an 79-year-old male with past medical history BPH currently being treated for a UTI comes to the ER complaining of general weakness. Also satting 89% on room air and elevated temperature 99.7. He is taking Augmentin for this already for 5 days. Also 4 weeks ago he had a right leg operation after he broke his right femur. He says rehab is going poorly because he is very weak. Denies acute swelling or pain of that leg and says it is healing. He has been feeling nauseous and is not eating and drinking well the past few days Complaint: generalized weakness Onset (ago): day(s) (3) Duration: constant and progressively worsening Location: generalized Relieving factors: none Exacerbating factors: none Context: recent illness (uti) Associated symptoms: Reports no associated symptoms; Denies chest pain, confusion or headache(s) Review of Systems General: Reports: 10 or more systems reviewed and unremarkable except in HPI and below Const: Denies: fatigue Eyes: Denies: change in vision, blurry vision or eye redness ENMT: Denies: throat pain, swelling of lips/tongue, ear or mastoid pain or nasal congestion Card: Denies: chest pain, palpitations, irregular heart rhythm, edema, dyspnea on exertion or orthopnea Resp: Denies: dyspnea, productive cough or non-productive cough GI: Denies: abdominal pain, diarrhea or GI cramping : Denies: flank pain, urinary frequency or urinary urgency Musc: Denies: neck pain, back pain, extremity pain, joint pain, joint redness, limited range of motion or muscle weakness Skin/Breast: Denies: rash, pruritus, erythema, skin pain or skin tenderness Neuro: Denies: headache(s), numbness in extremities, weakness in extremities, sensory changes, difficulty walking, dizziness, confusion or Slurred speech present Psych: Denies: anxiety or depression Endo: Denies: polyuria All/Imm: Denies: urticaria, throat swelling or tongue swelling PFS ED PFSH: Medical History (Updated 09/25/20 @ 08:27 by Shukri Cooley DO) BPH loc w urin obs/LUTS Closed right femoral fracture Fall Fracture of right ankle, lateral malleolus History of bladder stone Postprocedural urethral stricture On SCIC program with good patency maintenance Supracondylar fracture of right femur Urolithiasis Surgical History History of orchiectomy History of transurethral resection of prostate Family History Mother , AT AGE 69 Stroke Father , IN HIS 60-70'S Prostate cancer Social History Smoking and tobacco status: former smoker Alcohol intake: never Adopted: No Caregiver/support person: No Lives independently: No Household members: spouse Marital status: Current occupational status: retired History of recent travel: No Current gender identity: Male Physical Exam Const: COMMON NORMALS: no acute distress, average body habitus, patient oriented x3, no limitations, healthy appearing, alert and well nourished GENERAL APPEARANCE: cooperative, comfortable, well kempt and well developed ORIENTATION/CONSCIOUSNESS: Yes awake, Yes oriented to person, Yes oriented to place and Yes oriented to time HENMT: COMMON NORMALS: normocephalic, external ears normal and Normal external nose present HEAD & SCALP: normal to inspection and normocephalic NOSE: Normal external nose present EXTERNAL EAR: Yes external ears normal MOUTH: Normal oral and palatal mucosa present THROAT: posterior oropharynx normal Eye: COMMON NORMALS: Equal, round and reactive pupils present and EOMs intact bilaterally GENERAL EYE: appearance normal, both eyes and all related structures PUPIL: Yes Equal, round and reactive pupils present Neck/C-Spine: COMMON NORMALS: full ROM, no lymphadenopathy, no meningeal signs and no JVD GENERAL: Yes normal visual inspection Lymph: LYMPHATIC: no lymphadenopathy noted Chest: COMMONS NORMALS: normal inspection of the chest and normal palpation of entire chest wall Resp: COMMON NORMALS: normal respiratory effort, No retractions, No use of accessory muscles, clear to auscultation bilaterally and percussion normal EFFORT & INSPECTION: Yes able to speak in complete sentences AUSCULTATION: clear to auscultation bilaterally PERCUSSION: percussion normal Cardio: COMMON NORMALS: no JVD, regular rate, regular rhythm, S1 normal heart sound present, S2 normal heart sound present and Peripheral pulses 2+ throughout RATE: regular rate RHYTHM: regular rhythm HEART SOUNDS: S1 normal heart sound present and S2 normal heart sound present PERIPHERAL PULSES: Peripheral pulses 2+ throughout GI: COMMON NORMALS: Normal to inspection, nondistended, normoactive bowel sounds present, Soft to palpation, non-tender and no masses INSPECTION: Yes normal to inspection PALPATION: Yes Soft to palpation : COMMON NORMALS: Yes no CVA tenderness BLADDER/KIDNEY EXAM: Yes no CVA tenderness Back/Pelvis: COMMON NORMALS: no CVA tenderness, thoracic and lumbar spine normal to inspection, no thoracic nor lumbar tenderness and thoraco-lumbar ROM normal Extremity: COMMON NORMALS: normal to inspection, full ROM, capillary refill normal, no joint enlargement and no pedal edema NARRATIVE EXTREMITY EXAM: Normally appearing healing surgical scar right lateral thigh. No significant swelling to the extremity. Full power in all extremities. Neurovascularly intact in all extremities. GENERAL: Yes normal exam except as noted Neuro: COMMON NORMALS: patient oriented x3, CN's II-XII intact bilaterally, moves all extremities, no focal motor deficits, no sensory deficits noted and gait normal SENSORIUM/ORIENTATION: Yes alert, Yes oriented to person, Yes oriented to place and Yes oriented to time MENINGEAL SIGNS: Yes no meningeal signs Psych: COMMON NORMALS: mental status grossly normal, Normal thought process present, cooperative, normal affect and speech normal APPEARANCE: Yes well kempt ATTITUDE: Yes calm SPEECH: Yes normal speech THOUGHT PROCESS: Normal thought process present Skin: COMMON NORMALS: no rashes or lesions noted GENERAL SKIN EXAM: no rashes or lesions noted Course Vital Signs: Vital signs: Vital Signs Temperature 98.1 F 09/27/20 07:03 Pulse Rate 70 09/27/20 08:43 Respiratory Rate 16 09/27/20 08:43 Blood Pressure 141/71 09/27/20 07:03 Pulse Oximetry 94 09/27/20 08:43 MDM - Weakness MDM Narrative: Medical decision making narrative: Transitioned care to Dr. Cooley at 1200 pending labs and imaging. Lab Data: Labs: Lab Results 09/24/20 09/24/20 09/24/20 Range/Units 20:47 20:47 20:47 WBC 4.0 (4.0-10.0) 10^3/ uL RBC 4.19 (4.1-5.3) 10^6/u L Hgb 11.5 L (11.7-16.6) g/dL Hct 36.9 L (42.0-52.0) % MCV 88.1 (80-94) fL MCH 27.4 L (28.0-34.0) pg MCHC 31.2 (30.0-36.0) g/dL RDW 13.6 (12.1-15.1) % Plt Count 203 (130-400) 10^3/c mm MPV 10.9 H (7.4-10.4) fL Neut % (Auto) 70.8 % Lymph % (Auto) 18.0 % [place] % (Auto) 10.4 % Eos % (Auto) 0.0 % Baso % (Auto) 0.3 % Neut # (Auto) 2.80 (1.8-7.7) 10^3/u L Lymph # (Auto) 0.7 L (0.8-4.8) 10^3/u L [place] # (Auto) 0.4 (0.2-0.9) 10^3/u L Eos # (Auto) 0.0 (0.0-0.8) 10^3/u L Baso # (Auto) 0.0 (0.0-0.1) 10^3/u L Nucleated RBC % (a uto) 0 % Nucleated RBCs # 0.0 /100WBC D-Dimer 11.70 H (0-0.59) ug/mIFE U Sodium 131 L (136-145) mmol/L Potassium 4.3 (3.5-5.1) mmol/L Chloride 97 L (98-107) mmol/L Carbon Dioxide 24 (22-29) mmol/L Anion Gap 14.3 (5-19) BUN 15 (8-23) mg/dL Creatinine 1.2 (0.7-1.2) mg/dL GFR Calculation Not Reportable Glucose 91 (65-115) mg/dL Calculated Osmolal ity 272 L (285-295) mOsm/k g Lactate (0.5-2.2) mmol/L Calcium 8.6 (8.5-10.5) mg/dL Total Bilirubin 0.6 (0.15-1.2) mg/dL AST 28 (0-40) U/L ALT 16 (0-41) U/L Alkaline Phosphata se 97 (40-130) IU/L Troponin T Baselin e (0-15) ng/L Troponin T Hi Sens 6Hr (0-15) ng/L Troponin T Hi Sens 6Hr Delta (0-12) ng/L NT-Pro-B Natriuret Pep 380 (0-450) pg/mL Total Protein 6.8 (6.6-8.7) g/dL Albumin 3.4 L (3.5-5.2) g/dL Globulin 3.4 (1.3-4.6) g/dL Urine Color (Yellow) Urine Appearance (CLEAR) Urine pH (5-7) Ur Specific Gravit y (1.005-1.030) Urine Protein (Negative) Urine Glucose (UA) (Normal) Urine Ketones (Negative) Urine Blood (Negative) Urine Nitrate (Negative) Urine Bilirubin (Negative) Urine Urobilinogen (Negative) mg/dL Ur Leukocyte Katelin ase (Negative) SARS-CoV-2 Ag (Rap id) (Negative) 09/24/20 09/24/20 09/25/20 Range/Units 20:47 21:42 00:45 WBC (4.0-10.0) 10^3/ uL RBC (4.1-5.3) 10^6/u L Hgb (11.7-16.6) g/dL Hct (42.0-52.0) % MCV (80-94) fL MCH (28.0-34.0) pg MCHC (30.0-36.0) g/dL RDW (12.1-15.1) % Plt Count (130-400) 10^3/c mm MPV (7.4-10.4) fL Neut % (Auto) % Lymph % (Auto) % [place] % (Auto) % Eos % (Auto) % Baso % (Auto) % Neut # (Auto) (1.8-7.7) 10^3/u L Lymph # (Auto) (0.8-4.8) 10^3/u L [place] # (Auto) (0.2-0.9) 10^3/u L Eos # (Auto) (0.0-0.8) 10^3/u L Baso # (Auto) (0.0-0.1) 10^3/u L Nucleated RBC % (a uto) % Nucleated RBCs # /100WBC D-Dimer (0-0.59) ug/mIFE U Sodium (136-145) mmol/L Potassium (3.5-5.1) mmol/L Chloride (98-107) mmol/L Carbon Dioxide (22-29) mmol/L Anion Gap (5-19) BUN (8-23) mg/dL Creatinine (0.7-1.2) mg/dL GFR Calculation Glucose (65-115) mg/dL Calculated Osmolal ity (285-295) mOsm/k g Lactate 1.1 (0.5-2.2) mmol/L Calcium (8.5-10.5) mg/dL Total Bilirubin (0.15-1.2) mg/dL AST (0-40) U/L ALT (0-41) U/L Alkaline Phosphata se (40-130) IU/L Troponin T Baselin e 18 H (0-15) ng/L Troponin T Hi Sens 6Hr (0-15) ng/L Troponin T Hi Sens 6Hr Delta (0-12) ng/L NT-Pro-B Natriuret Pep (0-450) pg/mL Total Protein (6.6-8.7) g/dL Albumin (3.5-5.2) g/dL Globulin (1.3-4.6) g/dL Urine Color Yellow (Yellow) Urine Appearance Clear (CLEAR) Urine pH 5 (5-7) Ur Specific Gravit y 1.010 (1.005-1.030) Urine Protein Neg (Negative) Urine Glucose (UA) Norm (Normal) Urine Ketones Negative (Negative) Urine Blood Neg (Negative) Urine Nitrate Negative (Negative) Urine Bilirubin Neg (Negative) Urine Urobilinogen Norm (Negative) mg/dL Ur Leukocyte Katelin ase Negative (Negative) SARS-CoV-2 Ag (Rap id) (Negative) 09/25/20 09/25/20 Range/Units 00:45 04:14 WBC (4.0-10.0) 10^3/ uL RBC (4.1-5.3) 10^6/u L Hgb (11.7-16.6) g/dL Hct (42.0-52.0) % MCV (80-94) fL MCH (28.0-34.0) pg MCHC (30.0-36.0) g/dL RDW (12.1-15.1) % Plt Count (130-400) 10^3/c mm MPV (7.4-10.4) fL Neut % (Auto) % Lymph % (Auto) % [place] % (Auto) % Eos % (Auto) % Baso % (Auto) % Neut # (Auto) (1.8-7.7) 10^3/u L Lymph # (Auto) (0.8-4.8) 10^3/u L [place] # (Auto) (0.2-0.9) 10^3/u L Eos # (Auto) (0.0-0.8) 10^3/u L Baso # (Auto) (0.0-0.1) 10^3/u L Nucleated RBC % (a uto) % Nucleated RBCs # /100WBC D-Dimer (0-0.59) ug/mIFE U Sodium (136-145) mmol/L Potassium (3.5-5.1) mmol/L Chloride (98-107) mmol/L Carbon Dioxide (22-29) mmol/L Anion Gap (5-19) BUN (8-23) mg/dL Creatinine (0.7-1.2) mg/dL GFR Calculation Glucose (65-115) mg/dL Calculated Osmolal ity (285-295) mOsm/k g Lactate (0.5-2.2) mmol/L Calcium (8.5-10.5) mg/dL Total Bilirubin (0.15-1.2) mg/dL AST (0-40) U/L ALT (0-41) U/L Alkaline Phosphata se (40-130) IU/L Troponin T Baselin e (0-15) ng/L Troponin T Hi Sens 6Hr 16.79 H (0-15) ng/L Troponin T Hi Sens 6Hr Delta -1.21 L (0-12) ng/L NT-Pro-B Natriuret Pep (0-450) pg/mL Total Protein (6.6-8.7) g/dL Albumin (3.5-5.2) g/dL Globulin (1.3-4.6) g/dL Urine Color (Yellow) Urine Appearance (CLEAR) Urine pH (5-7) Ur Specific Gravit y (1.005-1.030) Urine Protein (Negative) Urine Glucose (UA) (Normal) Urine Ketones (Negative) Urine Blood (Negative) Urine Nitrate (Negative) Urine Bilirubin (Negative) Urine Urobilinogen (Negative) mg/dL Ur Leukocyte Katelin ase (Negative) SARS-CoV-2 Ag (Rap id) Negative (Negative) Discharge Plan Discharge Patient Disposition: Admitted As Inpatient Admit Provider: Ron Foote Clinical Impression: Pulmonary embolus, right, Bilateral pneumonia Condition: Stable Coding Level of Care Code ED Diplomatic Interpreter for Chg Fwd Exam Comprehensive Documented by User: Shukri Cooley DO 09/25/20 08:27 HPI - Weakness General: Chief complaint: Weakness Stated complaint: WEAKNESS Time Seen by Provider: 09/24/20 20:49 PFSH ED PFSH: Medical History (Updated 09/25/20 @ 08:27 by Shukri Cooley DO) BPH loc w urin obs/LUTS Closed right femoral fracture Fall Fracture of right ankle, lateral malleolus History of bladder stone Postprocedural urethral stricture On [facility] program with good patency maintenance Supracondylar fracture of right femur Urolithiasis Surgical History History of orchiectomy History of transurethral resection of prostate Family History Mother , AT AGE 69 Stroke Father , IN HIS 60-70'S Prostate cancer Social History Smoking and tobacco status: former smoker Alcohol intake: never Adopted: No Caregiver/support person: No Lives independently: No Household members: spouse Marital status: Current occupational status: retired History of recent travel: No Current gender identity: Male Course Vital Signs: Vital signs: Vital Signs Temperature 98.1 F 09/27/20 07:03 Pulse Rate 70 09/27/20 08:43 Respiratory Rate 16 09/27/20 08:43 Blood Pressure 141/71 09/27/20 07:03 Pulse Oximetry 94 09/27/20 08:43 MDM - Weakness MDM Narrative: Medical decision making narrative: 79-year-old gentleman checked out to me by Dr. Odom at shift change. He is here for generalized weakness, continued fevers despite antibiotics for UTI, some shortness of breath, and some mental status change. His white blood cell count is 4.0. Sodium 131. Because of hypoxia, and significantly elevated D-dimer, CT angio of the chest was performed and shows a large PE on the right. There are some groundglass opacities bilaterally as well. He is given a shot of Lovenox here in the ER, and will be admitted. Lab Data: Labs: Lab Results 09/24/20 09/24/20 09/24/20 Range/Units 20:47 20:47 20:47 WBC 4.0 (4.0-10.0) 10^3/ uL RBC 4.19 (4.1-5.3) 10^6/u L Hgb 11.5 L (11.7-16.6) g/dL Hct 36.9 L (42.0-52.0) % MCV 88.1 (80-94) fL MCH 27.4 L (28.0-34.0) pg MCHC 31.2 (30.0-36.0) g/dL RDW 13.6 (12.1-15.1) % Plt Count 203 (130-400) 10^3/c mm MPV 10.9 H (7.4-10.4) fL Neut % (Auto) 70.8 % Lymph % (Auto) 18.0 % [place] % (Auto) 10.4 % Eos % (Auto) 0.0 % Baso % (Auto) 0.3 % Neut # (Auto) 2.80 (1.8-7.7) 10^3/u L Lymph # (Auto) 0.7 L (0.8-4.8) 10^3/u L [place] # (Auto) 0.4 (0.2-0.9) 10^3/u L Eos # (Auto) 0.0 (0.0-0.8) 10^3/u L Baso # (Auto) 0.0 (0.0-0.1) 10^3/u L Nucleated RBC % (a uto) 0 % Nucleated RBCs # 0.0 /100WBC D-Dimer 11.70 H (0-0.59) ug/mIFE U Sodium 131 L (136-145) mmol/L Potassium 4.3 (3.5-5.1) mmol/L Chloride 97 L (98-107) mmol/L Carbon Dioxide 24 (22-29) mmol/L Anion Gap 14.3 (5-19) BUN 15 (8-23) mg/dL Creatinine 1.2 (0.7-1.2) mg/dL GFR Calculation Not Reportable Glucose 91 (65-115) mg/dL Calculated Osmolal ity 272 L (285-295) mOsm/k g Lactate (0.5-2.2) mmol/L Calcium 8.6 (8.5-10.5) mg/dL Total Bilirubin 0.6 (0.15-1.2) mg/dL AST 28 (0-40) U/L ALT 16 (0-41) U/L Alkaline Phosphata se 97 (40-130) IU/L Troponin T Baselin e (0-15) ng/L Troponin T Hi Sens 6Hr (0-15) ng/L Troponin T Hi Sens 6Hr Delta (0-12) ng/L NT-Pro-B Natriuret Pep 380 (0-450) pg/mL Total Protein 6.8 (6.6-8.7) g/dL Albumin 3.4 L (3.5-5.2) g/dL Globulin 3.4 (1.3-4.6) g/dL Urine Color (Yellow) Urine Appearance (CLEAR) Urine pH (5-7) Ur Specific Gravit y (1.005-1.030) Urine Protein (Negative) Urine Glucose (UA) (Normal) Urine Ketones (Negative) Urine Blood (Negative) Urine Nitrate (Negative) Urine Bilirubin (Negative) Urine Urobilinogen (Negative) mg/dL Ur Leukocyte Katelin ase (Negative) SARS-CoV-2 Ag (Rap id) (Negative) 03/13/21 03/13/21 03/14/21 Range/Units 20:47 21:42 00:45 WBC (4.0-10.0) 10^3/ uL RBC (4.1-5.3) 10^6/u L Hgb (11.7-16.6) g/dL Hct (42.0-52.0) % MCV (80-94) fL MCH (28.0-34.0) pg MCHC (30.0-36.0) g/dL RDW (12.1-15.1) % Plt Count (130-400) 10^3/c mm MPV (7.4-10.4) fL Neut % (Auto) % Lymph % (Auto) % [place] % (Auto) % Eos % (Auto) % Baso % (Auto) % Neut # (Auto) (1.8-7.7) 10^3/u L Lymph # (Auto) (0.8-4.8) 10^3/u L [place] # (Auto) (0.2-0.9) 10^3/u L Eos # (Auto) (0.0-0.8) 10^3/u L Baso # (Auto) (0.0-0.1) 10^3/u L Nucleated RBC % (a uto) % Nucleated RBCs # /100WBC D-Dimer (0-0.59) ug/mIFE U Sodium (136-145) mmol/L Potassium (3.5-5.1) mmol/L Chloride (98-107) mmol/L Carbon Dioxide (22-29) mmol/L Anion Gap (5-19) BUN (8-23) mg/dL Creatinine (0.7-1.2) mg/dL GFR Calculation Glucose (65-115) mg/dL Calculated Osmolal ity (285-295) mOsm/k g Lactate 1.1 (0.5-2.2) mmol/L Calcium (8.5-10.5) mg/dL Total Bilirubin (0.15-1.2) mg/dL AST (0-40) U/L ALT (0-41) U/L Alkaline Phosphata se (40-130) IU/L Troponin T Baselin e 18 H (0-15) ng/L Troponin T Hi Sens 6Hr (0-15) ng/L Troponin T Hi Sens 6Hr Delta (0-12) ng/L NT-Pro-B Natriuret Pep (0-450) pg/mL Total Protein (6.6-8.7) g/dL Albumin (3.5-5.2) g/dL Globulin (1.3-4.6) g/dL Urine Color Yellow (Yellow) Urine Appearance Clear (CLEAR) Urine pH 5 (5-7) Ur Specific Gravit y 1.010 (1.005-1.030) Urine Protein Neg (Negative) Urine Glucose (UA) Norm (Normal) Urine Ketones Negative (Negative) Urine Blood Neg (Negative) Urine Nitrate Negative (Negative) Urine Bilirubin Neg (Negative) Urine Urobilinogen Norm (Negative) mg/dL Ur Leukocyte Katelin ase Negative (Negative) SARS-CoV-2 Ag (Rap id) (Negative) 09/25/20 09/25/20 Range/Units 00:45 04:14 WBC (4.0-10.0) 10^3/ uL RBC (4.1-5.3) 10^6/u L Hgb (11.7-16.6) g/dL Hct (42.0-52.0) % MCV (80-94) fL MCH (28.0-34.0) pg MCHC (30.0-36.0) g/dL RDW (12.1-15.1) % Plt Count (130-400) 10^3/c mm MPV (7.4-10.4) fL Neut % (Auto) % Lymph % (Auto) % [place] % (Auto) % Eos % (Auto) % Baso % (Auto) % Neut # (Auto) (1.8-7.7) 10^3/u L Lymph # (Auto) (0.8-4.8) 10^3/u L [place] # (Auto) (0.2-0.9) 10^3/u L Eos # (Auto) (0.0-0.8) 10^3/u L Baso # (Auto) (0.0-0.1) 10^3/u L Nucleated RBC % (a uto) % Nucleated RBCs # /100WBC D-Dimer (0-0.59) ug/mIFE U Sodium (136-145) mmol/L Potassium (3.5-5.1) mmol/L Chloride (98-107) mmol/L Carbon Dioxide (22-29) mmol/L Anion Gap (5-19) BUN (8-23) mg/dL Creatinine (0.7-1.2) mg/dL GFR Calculation Glucose (65-115) mg/dL Calculated Osmolal ity (285-295) mOsm/k g Lactate (0.5-2.2) mmol/L Calcium (8.5-10.5) mg/dL Total Bilirubin (0.15-1.2) mg/dL AST (0-40) U/L ALT (0-41) U/L Alkaline Phosphata se (40-130) IU/L Troponin T Baselin e (0-15) ng/L Troponin T Hi Sens 6Hr 16.79 H (0-15) ng/L Troponin T Hi Sens 6Hr Delta -1.21 L (0-12) ng/L NT-Pro-B Natriuret Pep (0-450) pg/mL Total Protein (6.6-8.7) g/dL Albumin (3.5-5.2) g/dL Globulin (1.3-4.6) g/dL Urine Color (Yellow) Urine Appearance (CLEAR) Urine pH (5-7) Ur Specific Gravit y (1.005-1.030) Urine Protein (Negative) Urine Glucose (UA) (Normal) Urine Ketones (Negative) Urine Blood (Negative) Urine Nitrate (Negative) Urine Bilirubin (Negative) Urine Urobilinogen (Negative) mg/dL Ur Leukocyte Katelin ase (Negative) SARS-CoV-2 Ag (Rap id) Negative (Negative) Discharge Plan Discharge Patient Disposition: Admitted As Inpatient Admit Provider: Ron Foote Clinical Impression: Pulmonary embolus, right, Bilateral pneumonia Condition: Stable Coding Level of Care Code ED Diplomatic Interpreter for Realg Fwd Exam Comprehensive
[2020-09-24 21:51] LABS: Troponin(5th) Baseline 18 ng/L (0-15)
[2020-09-24 21:54] LABS: Alanine Aminotransferase 16 U/L (0-41); Albumin Level 3.4 g/dL (3.5-5.2); Alkaline Phosphatase 97 IU/L (40-130); Blood Urea Nitrogen 15 mg/dL (8-23); Calcium 8.6 mg/dL (8.5-10.5); Carbon Dioxide 24 mmol/L (22-29); Chloride 97 mmol/L (98-107); Creatinine Clr Calc Pharmacy 50.0039; Globulin 3.4 g/dL (1.3-4.6); Glucose 91 mg/dL (65-115); NT Pro B Type Natriuretic Pept 380 pg/mL (0-450); Osmolality Calculated 272 mOsm/kg (285-295); Sodium 131 mmol/L (136-145); Total Bilirubin 0.6 mg/dL (0.15-1.2); Total Protein 6.8 g/dL (6.6-8.7)
[2020-09-24 21:56] LABS: Anion Gap 14.3 (5-19); Aspartate Amino Transferase 28 U/L (0-40); Potassium 4.3 mmol/L (3.5-5.1)
[2020-09-24] MEDS: cefTRIAXone 1,000 MG in sodium chloride 0.9% (plus) 50 ML 100 MG IV (22:07)
[2020-09-24] MEDS: ondansetron 2 mg/ML SDV 2 mL 4 MG IVP (22:08)
[2020-09-24] MEDS: sodium chloride 0.9% 1,000 ML 999 ML IV (22:08)
[2020-09-24 22:10] VITALS: BP 145/82; PULSE 93; RESP 19; O2SAT 93
[2020-09-24] MEDS: acetaminophen 325 mg Tablet 650 MG PO (22:13)
[2020-09-24 22:21] LABS: Lactate (Lactic Acid level) 1.1 mmol/L (0.5-2.2)
[2020-09-24 23:00] VITALS: BP 123/74; PULSE 83; RESP 16; O2SAT 92
--- NOTE | 2020-09-24 23:10 | CTR_ITS ---
PROCEDURE INFORMATION: Exam: CT Angiography Chest With Contrast Exam date and time: 09/24/2020 11:39 PM Age: 79 years old Clinical indication: Abdominal tenderness; Shortness of breath; Patient HX: SOB w elev d-dimer - recent femur FX - abd pain and weakness; Additional info: Dyspnea, elevated d dimer, abdominal pain h/o UTI TECHNIQUE: Imaging protocol: Computed tomographic angiography of the chest with contrast. 3D rendering (Not supervised by radiologist): MIP and/or 3D reconstructed images were created by the technologist. Radiation optimization: All CT scans at this facility use at least one of these dose optimization techniques: automated exposure control; mA and/or kV adjustment per patient size (includes targeted exams where dose is matched to clinical indication); or iterative reconstruction. Contrast material: VISI 320; Contrast volume: 95 ml; Contrast route: INTRAVENOUS (IV); COMPARISON: CR (CHEST, ) 09/24/2020 9:33 PM RADIATION DOSE METRICS: Total DLP (mGy-cm): 1545.57 FINDINGS: Pulmonary arteries: Pulmonary emboli noted in the right pulmonary artery, interlobar pulmonary artery, right lower lobe pulmonary artery, and right lower lobe segmental pulmonary arteries. Aorta: No thoracic aortic aneurysm identified. Lungs: Marked patchy opacities (combined groundglass and alveolar) scattered throughout the right lung. Moderate patchy opacities combined groundglass and alveolar) scattered throughout the left lung. These may represent any combination of atelectasis, pneumonia, and hemorrhage related to altered lung perfusion. Pleural spaces: No pneumothorax. Trace right pleural effusion. Heart: Heart size within normal limits. RV/LV ratio approximately 1, consistent with mild right heart strain. Lymph nodes: No enlarged or abnormal appearing mediastinal/hilar lymph nodes identified. Enlarged right hilar lymph node measuring 1.2 cm short axis. Calcified left tracheobronchial lymph nodes, consistent with old granulomatous disease. Bones/joints: Minimal degenerative changes of the thoracic spine. Soft tissues: Unremarkable. IMPRESSION: 1. Extensive pulmonary emboli in the right lung. 2. Marked patchy opacities (combined groundglass and alveolar) scattered throughout the right lung. Moderate patchy opacities combined groundglass and alveolar) scattered throughout the left lung. These may represent any combination of atelectasis, pneumonia, and hemorrhage related to altered lung perfusion. The findings were discussed with Dr. Cooley on 09/25/2020 12:24 AM WATCH DIAL PRINTER. PROCEDURE INFORMATION: Exam: CT Abdomen And Pelvis With Contrast Exam date and time: 09/24/2020 11:39 PM Age: 79 years old Clinical indication: Abdominal tenderness; Shortness of breath; Patient HX: SOB w elev d-dimer - recent femur FX - abd pain and weakness; Additional info: Dyspnea, elevated d dimer, abdominal pain h/o UTI TECHNIQUE: Imaging protocol: Computed tomography of the abdomen and pelvis with contrast. Radiation optimization: All CT scans at this facility use at least one of these dose optimization techniques: automated exposure control; mA and/or kV adjustment per patient size (includes targeted exams where dose is matched to clinical indication); or iterative reconstruction. Contrast material: VISI 320; Contrast volume: 95 ml; Contrast route: INTRAVENOUS (IV); COMPARISON: CR (CHEST, ) 09/24/2020 9:33 PM RADIATION DOSE METRICS: Total DLP (mGy-cm): 1545.57 FINDINGS: Liver: Several hypodense scattered in the liver, largest 1.3 cm in the left hepatic lobe (series 3, image 14). Gallbladder and bile ducts: Unremarkable. Pancreas: Unremarkable. Spleen: Unremarkable. Adrenal glands: Unremarkable. Kidneys and ureters: Several small focal hypodensities scattered in each kidney, statistically likely to represent cysts. There is a 1.5 cm x 0.8 cm mass in the right kidney upper pole on series 3, image 35 with density 87 Hounsfield units. This is a possible neoplasm. Consider further evaluation with CT according to renal mass protocol on a nonemergent basis. Stomach and bowel: No bowel obstruction identified. No diverticulitis identified. Appendix: A normal-appearing appendix is seen in the right lower quadrant. Intraperitoneal space: No free intraperitoneal air identified. No free intraperitoneal fluid identified. Vasculature: No abdominal aortic aneurysm. Lymph nodes: Unremarkable. Urinary bladder: Unremarkable as visualized. Reproductive: Unremarkable as visualized. Bones/joints: Unremarkable. No acute fracture. Soft tissues: Unremarkable. CT/CT angio chest w abd pel w con IMPRESSION: 1. Indeterminate mass in the right kidney upper pole (possible neoplasm). Consider further evaluation with CT according to renal mass protocol on a nonemergent basis. Radiation Dose CTDIVOL = (mGy): DLP = 1545.57~1545.57 (mGy-cm)
--- NOTE | 2020-09-24 23:15 | ECG_ITS ---
[facility] Test Date: 2020-09-24 Pat Name: Zaki Segura Department: Room: Gender: Male Sfdc Developer: : 1940 Requested By: Alcides Ruano Order Number: [id number] Javi MD: Jemma Gupta M.D. Measurements Intervals [place] Rate: 82 P: 39 NH: 192 QRS: -19 QRSD: 150 T: 34 QT: 406 QTc: 477 Interpretive Statements SINUS RHYTHM INDETERMINATE AXIS RIGHT BUNDLE BRANCH BLOCK [120+ ms QRS DURATION, UPRIGHT V1, 40+ ms S IN I/aVL/V4/V5/V6] Compared to ECG 09/24/2020 21:53:49 Indeterminate axis now present Left-axis deviation no longer present Electronically Signed On 09-25-2020 22:45:44 CDT by Jemma Gupta M.D. [id number]
[2020-09-24 23:30] VITALS: BP 131/92; PULSE 76; RESP 14; O2SAT 94
[2020-09-25] VITALS (14 sets, daily range): BP systolic 126–162; BP diastolic 71–100; PULSE 67–88; RESP 15–27; TEMP 36.4–37.2; O2SAT 89–97
[2020-09-25] MEDS: iodixanol 320 mg/mL 100mL Btl IV (00:03)
[2020-09-25 01:20] LABS: Add Urine Microscopic? NO
[2020-09-25 01:29] LABS: Urine Appearance Clear (CLEAR); Urine Color Yellow (Yellow)
[2020-09-25 01:30] LABS: Bilirubin Urine Neg (Negative); Blood Urine Neg (Negative); Glucose Urine UA Norm (Normal); Ketones Urine Negative (Negative); Leukocyte Esterase Urine Negative (Negative); Nitrate Urine Negative (Negative); Protein Urine Neg (Negative); Urobilinogen Urine Norm (Negative); pH Urine 5 (5-7)
[2020-09-25 03:25] LABS: SARS Covid-2 Antigen Negative (Negative)
[2020-09-25] MEDS: enoxaparin 80 mg/0.8 mL Syringe SUBCUT ×2 (04:10→17:03)
--- NOTE | 2020-09-25 04:15 | ECG_ITS ---
[facility] Test Date: 2020-09-25 Pat Name: Zaki Segura Department: Room: 106 Gender: Male Health Care Recruiter: : 1940 Requested By: Alcides Ruano Order Number: [id number] Javi MD: Jemma Gupta M.D. Measurements Intervals [place] Rate: 79 P: 50 MD: 195 QRS: -37 QRSD: 144 T: 47 QT: 397 QTc: 456 Interpretive Statements SINUS RHYTHM INDETERMINATE AXIS RIGHT BUNDLE BRANCH BLOCK [120+ ms QRS DURATION, UPRIGHT V1, 40+ ms S IN I/aVL/V4/V5/V6] Compared to ECG 09/24/2020 23:18:03 No significant changes Electronically Signed On 09-25-2020 22:46:25 CDT by Jemma Gupta M.D. [id number]
--- NOTE | 2020-09-25 04:26 | USR_ITS ---
PROCEDURE INFORMATION: Exam: US Retroperitoneal; Complete; Kidneys and Bladder Exam date and time: 09/25/2020 7:52 AM Age: 79 years old Clinical indication: Abnormal findings; Abnormal radiologic finding of the abdomen; Radiologic exam and body structure: CT; Additional info: Renal mass TECHNIQUE: Imaging protocol: Real-time ultrasound of the retroperitoneum with image documentation. Complete exam focused on the kidneys and bladder. COMPARISON: US renal BI* [id number] 08/30/2020 4:58 PM FINDINGS: Right kidney: There is a solid mass in the upper pole of the right kidney measuring 1.6 x 1.5 x 1.5 cm. This corresponds to the abnormality that was seen on recent CT scan. Further evaluation with an MR scan of the kidneys with and without contrast is advised. Left kidney: There is a 1.6 cm benign appearing cyst in the lower pole of the left kidney.. No stones. No hydronephrosis. Aorta: The abdominal aorta is not dilated. Urinary bladder: Unremarkable. Prostate: The prostate is enlarged with diameters of 5.2 x 4.6 x 4.0 cm. US/US renal BI* [id number] IMPRESSION: 1. There is a solid mass at the upper pole of the right kidney measuring 1.6 x 1.5 x 1.5 cm. A renal malignancy cannot be excluded. Further evaluation with MR scan of the kidneys is advised. 2. There is a 1.6 cm benign cyst in the lower pole of the left kidney.
--- NOTE | 2020-09-25 04:26 | USCV_ITS ---
Zaki Segura Age: 79 Gender: M : 1940 Exam Date: 09/25/2020 10:44 Ordering Phys: Ron Foote MD Technologist: Denita Bernard [place] [facility] [place]: Right heart strain BP: 139 / 77 HR: 69 Rhythm: Sinus Technical Quality: Fair MEASUREMENTS (Male / Female) Normal Values 2D ECHO LV Diastolic Diameter PLAX 3.8 cm 4.2 - 5.9 / 3.9 - 5.3 cm LV Systolic Diameter PLAX 2.0 cm LV Chamber Size 3.6 cm IVS Diastolic Thickness 1.7 cm 0.6 - 1.0 / 0.6 - 0.9 cm IVS Systolic Thickness 2.0 cm LVPW Diastolic Thickness 0.9 cm 0.6 - 1.0 / 0.6 - 0.9 cm LVPW Systolic Thickness 1.2 cm RV Chamber Size 3.7 cm LVOT Diameter 2.0 cm LV Ejection Fraction 2D Teich 80.1 % LV Ejection Fraction MOD 2C 73.2 % LV Ejection Fraction 2C AL 74.1 % LA Diameter 2.8 cm LA Width 3.3 cm LA Height 4.4 cm RA Width 3.4 cm RA Height 4.5 cm Aorta at Sinotubular Diameter 2.3 cm M-MODE LV Diastolic Diameter MM 3.9 cm 4.2 - 5.9 / 3.9 - 5.3 cm LV Systolic Diameter MM 2.5 cm LV Ejection Fraction MM Teich 65.9 % IVS Diastolic Thickness MM 1.2 cm 0.6 - 1.0 / 0.6 - 0.9 cm IVS Systolic Thickness MM 1.3 cm LVPW Diastolic Thickness MM 1.4 cm 0.6 - 1.0 / 0.6 - 0.9 cm LVPW Systolic Thickness MM 1.4 cm RV Diastolic Diameter MM 0.7 cm Aortic Annulus Diameter 3.4 cm LA Ao Ratio MM 1.1 MV E Point Septal Separation 0.5 cm DOPPLER AV Peak Velocity 123.0 cm/s LVOT Peak Velocity 86.0 cm/s AV Area Cont Eq vti 2.6 cm squared AV Area Cont Eq pk 2.3 cm squared MV Area PHT 3.9 cm squared Mitral E to A Ratio 1.0 MV E' Velocity 48.0 cm/s Mitral E to MV E' Ratio 9.6 Mitral E to LV E' Lateral Ratio 8.4 Mitral E to LV E' Septal Ratio 11.4 TR Peak Velocity 156.0 cm/s TR Peak Gradient 9.7 mmHg TV Peak E Velocity 85.0 cm/s Right Atrial Pressure 3.0 mmHg Pulmonary Artery Systolic Pressu 12.7 mmHg PV Peak Velocity 73.0 cm/s RV Acceleration Time 0.1 s RV Ejection Time 0.3 s RV AcT/ET 0.3 FINDINGS Left Ventricle Normal left ventricular size and systolic function, EF 69 %. No regional wall motion abnormalities. Right Ventricle The right ventricle is normal in size and function. Right Atrium The right atrium is normal in size. Left Atrium The left atrium is normal in size. Mitral Valve No gross abnormalities noted Aortic Valve Mild aortic valve regurgitation. Minimally thickened aortic valve Tricuspid Valve Trace to mild tricuspid valve regurgitation. Pulmonic Valve Mild pulmonary valve regurgitation. Pericardium Normal pericardium without effusion. Aorta Normal ascending aorta dimension. CONCLUSIONS Normal left ventricular size and systolic function, EF 69 %. No regional wall motion abnormalities. Mild aortic valve regurgitation. Minimally thickened aortic valve. Trace to mild tricuspid valve regurgitation. Mild pulmonary valve regurgitation. Estimated pulmonary artery peak systolic pressure was 13 mmHg There is no pericardial effusion. There are no intracardiac masses. No previous study is available for comparison. Dr Jemma Gupta MD [facility] (Electronically Signed) Final Date: 25 September 2020 22:10 S
--- NOTE | 2020-09-25 04:26 | USR_ITS ---
PROCEDURE INFORMATION: Exam: US Duplex Lower Extremity Veins, Bilateral Exam date and time: 09/25/2020 7:52 AM Age: 79 years old Clinical indication: Swelling (edema) of limb; Lower extremity, bilateral; Additional info: Dvt TECHNIQUE: Imaging protocol: Real-time duplex ultrasound of the extremities with 2-D low scale, color Doppler flow and spectral waveform analysis with image documentation. Complete exam focused on the bilateral lower extremity veins. COMPARISON: No relevant prior studies available. FINDINGS: Right deep veins: There is acute occlusive deep venous thrombosis with filling defect and lack of compressibility in the right popliteal vein extending into the posterior tibial vein. The common femoral and superficial femoral are patent. Right superficial veins: Saphenofemoral junction is patent without thrombus. Left deep veins: There is acute occlusive deep venous thrombosis with filling defect and lack of compressibility of the left popliteal vein. The left common femoral and femoral veins are patent. Left superficial veins: Saphenofemoral junction is patent without thrombus. Soft tissues: Unremarkable. US/CV venous duplex [facility] [id number] IMPRESSION: Acute deep venous thrombosis in the right popliteal and posterior tibial veins and in the left popliteal vein.
[2020-09-25 04:54] LABS: Troponin 5 6HR 16.79 ng/L (0-15)
[2020-09-25] MEDS: sodium chloride 0.9% 1,000 ML 75 ML IV ×2 (05:12→19:56)
--- NOTE | 2020-09-25 05:20 | PM.HP ---
Providers/Chief Complaint Admitting Physician: Ron Foote MD Primary Care Provider: Darci Frances DO Chief Complaint: WEAKNESS History of Present Illness Zaki Segura is a 79 year old male with a past medical history of kidney stones, bladder stones, BPH, urethral stricture, urolithiasis, status post open reduction internal fixation of right supracondylar femoral fracture 4 weeks ago, status post nondisplaced oblique fracture of the distal fibula treated with an ankle brace 4 weeks ago, history of UTI 4 weeks ago, tested negative for Covid in the past, was at [facility] for 2 weeks, currently at home with his , complains of a 1 week history of fatigue, malaise, poor appetite weakness, fatigue, shortness of breath. Patient and tell me that for the last week, he has been feeling increased fatigue, malaise, poor appetite, generalized weakness, he is barely able now to get up out of bed, shortness of breath with exertion, no chest pain, no palpitations. No calf pain, no calf swelling, no hemoptysis, had surgery 4 weeks ago. No fevers, no chills, no known exposure to COVID-19. No cough. No dysuria. No hematuria. Review of Systems Const: Reports: fatigue and malaise; Denies: fever(s) or chills Eyes: Denies: change in vision or blurry vision ENMT: Denies: nasal congestion Card: Denies: chest pain, palpitations or syncope Resp: Reports: dyspnea; Denies: productive cough, non-productive cough or wheezing GI: Denies: abdominal pain, nausea, vomiting, hematemesis, diarrhea, constipation, hematochezia or melena : Denies: flank pain, difficulty urinating, dysuria or urinary frequency Musc: Denies: neck pain or back pain Skin/Breast: Denies: rash Neuro: Denies: headache(s), dizziness or vertigo Endo: Denies: polyuria or polydipsia Medications/Allergies Home Medications Medication Instructions Recorded Confirmed Last Taken Type chlorpheniramine maleate 4 mg 4 mg PO Q12H PRN tab 08/19/19 09/20/20 Unknown History tablet ciprofloxacin HCl 500 mg tablet 500 mg PO BID 08/19/19 09/20/20 Unknown History metoprolol tartrate 50 mg tablet 50 mg PO DAILY 08/19/19 09/20/20 Unknown History tamsulosin 0.4 mg capsule 0.4 mg PO DAILY #90 cap 01/13/20 09/20/20 Unknown Rx ciprofloxacin HCl 250 mg PO BID@0900,2100 #7 tab 09/02/20 09/20/20 Unknown Rx hydrocodone-acetaminophen 1 tab PO Q4H PRN #12 tab 09/02/20 09/20/20 Unknown Rx sennosides-docusate sodium 1 tab PO DAILY #30 tab 09/02/20 09/20/20 Unknown Rx ondansetron HCl 4 mg tablet 4 mg PO Q8H PRN #21 tab 09/19/20 09/20/20 Unknown Rx Allergies Allergy/AdvReac Type Severity Reaction Status Date / Time Sulfa (Sulfonamide Allergy UNKNOWN Verified 09/20/20 09:18 Antibiotics) sulfamethoxazole Allergy UNKNOWN Verified 09/20/20 09:18 [From Bactrim] trimethoprim [From Bactrim] Allergy UNKNOWN Verified 09/20/20 09:18 PFSH Acute PFSH: Medical History (Updated 09/25/20 @ 05:25 by Ron Foote MD) BPH loc w urin obs/LUTS Closed right femoral fracture Fall Fracture of right ankle, lateral malleolus History of bladder stone Postprocedural urethral stricture On [facility] program with good patency maintenance Supracondylar fracture of right femur Urolithiasis Surgical History History of orchiectomy History of transurethral resection of prostate Family History Mother , AT AGE 69 Stroke Father , IN HIS 60-70'S Prostate cancer Social History Smoking and tobacco status: former smoker Alcohol intake: never Adopted: No Caregiver/support person: No Lives independently: No Household members: spouse Marital status: Current occupational status: retired History of recent travel: No Current gender identity: Male Vitals/I&O/Wt Last Vital Signs Temp 99.7 F H 09/24/20 20:37 Pulse 88 09/25/20 04:42 Resp 16 09/25/20 04:42 BP 144/100 09/25/20 04:42 Pulse Ox 92 09/25/20 04:42 09/24/20 09/24/20 09/25/20 14:59 22:59 07:59 Intake Total 1050 / 1050 Balance 1050 / 1050 Weight last 48 hrs Weight 83.915 kg Physical Exam Const: COMMON NORMALS: no acute distress and patient oriented x3 GENERAL APPEARANCE: cooperative and comfortable HENMT: COMMON NORMALS: normocephalic HEAD & SCALP: normocephalic Eye: COMMON NORMALS: Equal, round and reactive pupils present and EOMs intact bilaterally GENERAL EYE: appearance normal, both eyes and all related structures PUPIL: Yes Equal, round and reactive pupils present Neck/C-Spine: COMMON NORMALS: full ROM, no lymphadenopathy, no JVD and Thyroid normal THYROID: Thyroid normal Lymph: LYMPHATIC: no lymphadenopathy noted Resp: COMMON NORMALS: normal respiratory effort, No retractions, No use of accessory muscles and clear to auscultation bilaterally AUSCULTATION: clear to auscultation bilaterally Cardio: COMMON NORMALS: no JVD, regular rate, regular rhythm, S1 normal heart sound present, S2 normal heart sound present, No gallops present (Cardio), No clicks present (Cardio) and No murmurs present (Cardio) RATE: regular rate RHYTHM: regular rhythm HEART SOUNDS: S1 normal heart sound present and S2 normal heart sound present GI: COMMON NORMALS: Normal to inspection, nondistended, normoactive bowel sounds present, Soft to palpation, non-tender and No hepatosplenomegaly present PALPATION: Yes Soft to palpation and Yes No hepatosplenomegaly present Extremity: COMMON NORMALS: normal to inspection NARRATIVE EXTREMITY EXAM: Right ankle in a brace Neuro: COMMON NORMALS: patient oriented x3, CN's II-XII intact bilaterally, moves all extremities and no focal motor deficits Psych: COMMON NORMALS: mental status grossly normal, Normal thought process present and cooperative THOUGHT PROCESS: Normal thought process present Data : 09/24/20 20:47 09/24/20 20:47 Micro: Microbiology 09/24/20 21:24 Blood Culture - Preliminary Blood SPECIMEN COLLECTED 09/24/20 21:42 Blood Culture - Preliminary Blood SPECIMEN COLLECTED A&P Assessment and plan (1) Pulmonary embolus, right: -Likely secondary to postoperative state -We will do bilateral lower extremity ultrasound -Cardiac echo -Serial troponins, serial EKGs, telemetry monitoring -Therapeutic Lovenox, monitor hemoglobin, -monitor respiratory status Status: Acute (2) Bilateral pneumonia: -Currently not requiring any oxygen, has shortness of breath with exertion, -Blood cultures, sputum cultures -Rocephin azithromycin Status: Acute (3) Renal mass, right: We will get a renal ultrasound Status: Acute (4) Dehydration: IV fluids Status: Acute (5) NSTEMI (non-ST elevated myocardial infarction): Type II NSTEMI, likely secondary to pulmonary emboli, bilateral pneumonia, monitor troponins, serial EKGs Status: Acute (6) Hyponatremia: Secondary to dehydration Status: Acute Additional A&P Information Lovenox for DVT prophylaxis Patient wants everything done, except mechanical ventilation and intubation Attestations Medical Necessity Statement*: Patient requires hospitalization, inpatient, greater than 2 midnights, PNA, PE Coding Level of Care Code Acute Energy Efficiency Specialist for g Fwd Diagnoses Pulmonary embolus, right I26.99 Bilateral pneumonia J18.9 Renal mass, right N28.89 Dehydration E86.0 NSTEMI (non-ST elevated myocardial infarction) I21.4 Hyponatremia E87.1
[2020-09-25 05:24] LABS: Troponin 5 6HR Delta -1.21 ng/L (0-12)
--- NOTE | 2020-09-25 05:32 | PC.NURSE ---
Addendum entered by Aura Lim RN 09/25/20 05:38: Patient reports code status of DNI only. Refuses all vaccines. Original Note: Patient received from ED via stretcher. Patient able to stand and pivot to transfer to bed x2 assist. Patient has history of left lower leg fx 4 weeks ago with surgical repair. Surgical boot in place. Patient reports having difficulty with physical therapy due to increased generalized weakness over past few days. Discussed the development of PEs and possible pneumonia due to inactivity. Also instructed on the use of Lovenox risks and benefits. Patient verbalized complete understanding. Patient stated, I was pretty healthy until I broke my leg. Patient provided with patient folder and patient guide. Discussed the use of this to keep information for this hospital stay and to take this information to his PCP at follow up.
[2020-09-25] MEDS: azithromycin 500 MG in sodium chloride 0.9% 250 ML 250 MG IV (05:54)
--- NOTE | 2020-09-25 07:49 | PC.NURSE ---
0700 Bedside report from Aura BRANTLEY; patient resting with eyes closed at this time respirations even and unlabored no s/s of outward events at this time
[2020-09-25] MEDS: metoprolol tartrate 50 mg Tablet PO (09:49)
[2020-09-25] MEDS: tamsulosin 0.4 mg Capsule PO (09:49)
[2020-09-25] MEDS: famotidine 20 mg Tablet PO ×2 (09:50→17:03)
[2020-09-25 12:04] LABS: Lactic Sepsis W/Reflex 0.9 mmol/L (0.5-2.2)
--- NOTE | 2020-09-25 12:44 | PM.PN ---
Subjective Subjective: Interval history: Patient reports feeling better this morning. Denies shortness of breath or chest pain. Denies any difficulty with urination. Interestingly completely denies cough. Vitals/I&O/Wt Last Vital Signs Temp 97.6 F 09/25/20 11:34 Pulse 67 09/25/20 11:34 Resp 23 H 09/25/20 11:34 BP 126/71 09/25/20 11:34 Pulse Ox 94 09/25/20 11:34 09/24/20 09/25/20 09/25/20 21:59 06:59 14:59 Intake Total 370 / 370 Balance 370 / 370 Weight last 48 hrs Weight 86.5 kg Weight 83.915 kg Physical Exam Narrative: EXAM NARRATIVE: Lungs with minimal bibasilar Rales and regular heart. Abdomen soft nontender with positive bowel sounds. No lower extremity edema. Data : 09/24/20 20:47 09/24/20 20:47 Micro: Microbiology 09/24/20 21:24 Blood Culture - Preliminary Blood SPECIMEN COLLECTED 09/24/20 21:42 Blood Culture - Preliminary Blood SPECIMEN COLLECTED A&P Assessment and plan (1) Pulmonary embolus, right: -Likely secondary to postoperative state -We will do bilateral lower extremity ultrasound -Cardiac echo -Serial troponins, serial EKGs, telemetry monitoring -Therapeutic Lovenox, monitor hemoglobin, -monitor respiratory status Status: Acute (2) Bilateral pneumonia: -Currently not requiring any oxygen, has shortness of breath with exertion, -Blood cultures, sputum cultures -Rocephin azithromycin Status: Acute (3) Renal mass, right: Concerning for malignancy. Status: Acute (4) Dehydration: IV fluids Status: Acute (5) NSTEMI (non-ST elevated myocardial infarction): Type II NSTEMI, likely secondary to pulmonary emboli, bilateral pneumonia, monitor troponins, serial EKGs Status: Acute (6) Hyponatremia: Secondary to dehydration Status: Acute Additional A&P Information PLAN: Continue current monitoring and treatment including antibiotic and therapeutic Lovenox. Patient will need to have further outpatient evaluation of kidney mass. Awaiting echocardiogram. Hemodynamically stable. Lovenox for DVT prophylaxis Patient wants everything done, except mechanical ventilation and intubation Attestations Medical Necessity Statement*: Patient with pneumonia as well as extensive PE requires close inpatient monitoring and treatment until deemed safe for discharge. Coding Level of Care Code Acute Executive Producer [employer] for Alvin Fwd Diagnoses Pulmonary embolus, right I26.99 Bilateral pneumonia J18.9 Renal mass, right N28.89 Dehydration E86.0 NSTEMI (non-ST elevated myocardial infarction) I21.4 Hyponatremia E87.1
--- NOTE | 2020-09-25 14:14 | PC.OT ---
Evaluation held per nursing
--- NOTE | 2020-09-25 19:52 | PC.NURSE ---
Dr. Foote notified of patient having slight confusion. Day shift nurse states that the patient was not confused earlier. Other than confusion, neuro assessment WNL.
--- NOTE | 2020-09-25 19:55 | PC.NURSE ---
Patient is able to answer correctly to person, place, time, and situation, however patient seems slightly confused at time. Bed alarm is set. Will monitor.
[2020-09-25] MEDS: cefTRIAXone 1,000 MG in sodium chloride 0.9% (plus) 50 ML 100 MG IV (22:08)
[2020-09-26] VITALS (12 sets, daily range): BP systolic 108–132; BP diastolic 62–74; PULSE 64–79; RESP 20–34; TEMP 36.6–36.8; O2SAT 92–95
[2020-09-26] MEDS: enoxaparin 80 mg/0.8 mL Syringe SUBCUT ×2 (03:40→16:32)
[2020-09-26] MEDS: azithromycin 500 MG in sodium chloride 0.9% 250 ML 250 MG IV (03:40)
[2020-09-26 04:25] LABS: Basophils % 0.2 %; Eosinophils % 0.2 %; Hematocrit 30.3 % (42.0-52.0); Hemoglobin 9.4 g/dL (11.7-16.6); Lymphocytes # 0.8 10^3/uL (0.8-4.8); Lymphocytes % 13.3 %; Mean Corpuscular Hemoglobin 27.7 pg (28.0-34.0); Mean Corpuscular Volume 89.4 fL (80-94); Mean Platelet Volume 10.2 fL (7.4-10.4); Monocytes # 0.6 10^3/uL (0.2-0.9); Monocytes % 10.7 %; Neutrophils # 4.33 10^3/uL (1.8-7.7); Neutrophils % 75.1 %; Nucleated Red Blood Cells % 0 %; Platelet Count 197 10^3/cmm (130-400); Red Blood Count 3.39 10^6/uL (4.1-5.3); Red Cell Distribution Width 13.6 % (12.1-15.1); White Blood Count 5.8 10^3/uL (4.0-10.0)
[2020-09-26 04:35] LABS: INR 1.12 (0.8-1.2)
[2020-09-26 04:44] LABS: Lactate (Lactic Acid level) 0.9 mmol/L (0.5-2.2)
[2020-09-26 04:50] LABS: Alanine Aminotransferase 10 U/L (0-41); Albumin Level 2.8 g/dL (3.5-5.2); Alkaline Phosphatase 75 IU/L (40-130); Anion Gap 14.2 (5-19); Aspartate Amino Transferase 18 U/L (0-40); Blood Urea Nitrogen 11 mg/dL (8-23); Calcium 7.8 mg/dL (8.5-10.5); Carbon Dioxide 22 mmol/L (22-29); Chloride 103 mmol/L (98-107); Globulin 2.6 g/dL (1.3-4.6); Glucose 80 mg/dL (65-115); Magnesium 1.7 mg/dL (1.7-2.3); Osmolality Calculated 278 mOsm/kg (285-295); Phosphorus 2.4 mg/dL (2.5-4.5); Potassium 4.2 mmol/L (3.5-5.1); Sodium 135 mmol/L (136-145); Thyroid Stimulating Hormone 1.96 uIU/mL (0.27-4.20); Total Bilirubin 0.6 mg/dL (0.15-1.2); Total Protein 5.4 g/dL (6.6-8.7)
[2020-09-26 04:52] LABS: Estmated Average Glucose 105; Hemoglobin A1C 5.3 % (4.0-6.0)
[2020-09-26 04:55] LABS: NT Pro B Type Natriuretic Pept 884 pg/mL (0-450); Procalcitonin 0.13 ng/mL (0-0.5)
[2020-09-26 05:06] LABS: Cholesterol 85 mg/dL (0-200); Creatine Phosphokinase 39 U/L (39-308); HDL Cholesterol 34 mg/dL (60-100); LDL Cholesterol Calculated 35 mg/dL (50-129); LDL HDL Ratio 1.03 RATIO (0.00-3.22); Triglycerides 80 mg/dL (0-150)
[2020-09-26 07:11] LABS: C Reactive Protein 87.1 mg/L (0.0-4.9)
[2020-09-26] MEDS: sodium chloride 0.9% 1,000 ML 75 ML IV (08:04)
[2020-09-26] MEDS: metoprolol tartrate 50 mg Tablet PO (08:48)
[2020-09-26] MEDS: famotidine 20 mg Tablet PO ×2 (08:48→17:19)
[2020-09-26] MEDS: tamsulosin 0.4 mg Capsule PO (08:48)
--- NOTE | 2020-09-26 09:41 | PC.CHAP ---
Pastoral Care Encounter/Spiritual Assessment Type of Contact [] Declined pediatric neurologist visit [] Patient/Family/Request visit [] Outpatient visit [] Follow-up visit [] Physician referral [] Code/Alert [x] Routine visit [] Staff referral [] Actively dying [] Patient sleeping [] Family support [] [] Out of room [] Palliative care [] [] Receiving care in room [] Pre-surgical visit [] Trauma [] Long length of stay [] ICU visit [x] Other: quarantined Relational/Emotional Strength [] Patient feels connected with others/family/visitors/staff [] Distress [] Loneliness/isolation [] Abandonment Spirituality of Patient [] Person of Adali [] Attends Restorationist of their Adali [] Believes in Prayer [] Reads Bible or Religion materials [] There are Spiritual issues to be addressed Transformer Assembly Supervisor Interventions [x] Prayer [] Active listening [] Non-anxious presence [] Spiritual/emotional support [] Crisis/trauma care [] Spiritual counseling [] Bereavement support [] Provided bereavement packet [] Provided Bible/devotional materials [] Provided toy/stuffed animal, coloring book to patient or family member [] Provided Communion [] Anointing/Temple [] Salvation [x] Completed spiritual assessment [] Other: Impact on Illness or Injury [] Angry [] Fearful [] Anxious [] Often cries [] Exhaustion [] Unable to work [] Unable to attend cheondoism [] Unable to walk/stand [] Unable to read [] Unable to drive [] Unable to eat/drink [] Unable to sleep [] Unable to be with family [] Patient intubated [] Other: Summary Time spent with patient
[2020-09-26 14:29] LABS: Coronavirus Test Green County Not Detected
--- NOTE | 2020-09-26 20:47 | PM.PN ---
Subjective Subjective: Interval history: He feels he has been quite deconditioned recently. With generalized weakness. Overall still feels like that. Has been trying to work with physical therapy. He states he is motivated to try to get better. Encouraged him in his attempts. Denies chest pain or pressure. Breathing comfortable on nasal cannula. Leg pain has been better. Vitals/I&O/Wt Last Vital Signs Temp 97.9 F 09/26/20 20:00 Pulse 68 09/26/20 20:00 Resp 31 H 09/26/20 20:00 BP 131/69 09/26/20 20:00 Pulse Ox 93 09/26/20 16:35 09/26/20 09/26/20 09/26/20 06:59 14:59 22:59 Intake Total 500 / 1870 970 / 970 60 / 1030 Output Total 450 / 1700 325 / 325 Balance 50 / 170 645 / 645 60 / 705 Weight last 48 hrs Weight 86.5 kg Weight 83.915 kg Physical Exam Const: COMMON NORMALS: no acute distress, patient oriented x3 and alert GENERAL APPEARANCE: cooperative and frail appearing ORIENTATION/CONSCIOUSNESS: Yes awake HENMT: COMMON NORMALS: oropharynx normal Neck/C-Spine: COMMON NORMALS: no JVD Resp: COMMON NORMALS: normal respiratory effort and clear to auscultation bilaterally AUSCULTATION: clear to auscultation bilaterally Cardio: COMMON NORMALS: no JVD, regular rhythm, S1 normal heart sound present, S2 normal heart sound present and No murmurs present (Cardio) RHYTHM: regular rhythm HEART SOUNDS: S1 normal heart sound present and S2 normal heart sound present GI: COMMON NORMALS: Normal to inspection, nondistended, normoactive bowel sounds present, Soft to palpation and non-tender PALPATION: Yes Soft to palpation Extremity: COMMON NORMALS: no joint enlargement and no pedal edema OTHER: Right knee in immobilizer. Neuro: COMMON NORMALS: patient oriented x3 and moves all extremities SENSORIUM/ORIENTATION: Yes alert Skin: COMMON NORMALS: no rashes or lesions noted GENERAL SKIN EXAM: no rashes or lesions noted Data : 09/26/20 03:38 09/26/20 03:38 Micro: Microbiology 09/24/20 21:24 Blood Culture - Preliminary Blood NEGATIVE TO DATE 09/24/20 21:42 Blood Culture - Preliminary Blood NEGATIVE TO DATE A&P Assessment and plan (1) Pulmonary embolus, right: Requiring up to 4 L of oxygen by nasal cannula today. Continue anticoagulation. Denies chest pain, hemoptysis. With worsening oxygenation continue monitoring the hospital. Blood pressure appears to be stable. Discussed with him PE. Possible pneumonia. Echo with normal EF, mild AVR. Minimally thickened whilst. Trace to mild TVR. Mild PVR. Noted acute VTE in right popliteal and posterior tibial veins and left popliteal vein. Discussed with him regarding findings in the right kidney. Continue anticoagulation. Continue monitoring in the hospital due to worsening hypoxia. Status: Acute (2) Bilateral pneumonia: Worsening hypoxia today, requiring 4 L of oxygen. Continue antibiotic. Follow-up blood, sputum cultures. Continue to monitor in the hospital due to worsening oxygenation. Status: Acute (3) Renal mass, right: Concerning for malignancy. Discussed with radiology, as well as with him. Unidentified mass, about 13-15 mm in size. Complex. Appears was obscured by bowel gas during prior ultrasound. Difficult to say if complex cyst, collapsed prior simple cyst, or possibly malignancy. Does not have appearance of septic embolus. Blood cultures repeatedly negative. Discussed with him. Would benefit from additional follow-up. Would refer to urology for consideration of additional imaging modality and timing. Status: Acute (4) Dehydration: Received IV fluids. Discontinue. Status: Acute (5) NSTEMI (non-ST elevated myocardial infarction): Chest pain-free. Type II NSTEMI, likely secondary to pulmonary emboli, bilateral pneumonia Status: Acute (6) Hyponatremia: Improving. DC IVF. Status: Acute Attestations Medical Necessity Statement*: Continue admission for assessment management in the hospital due to extensive right-sided PE, acute VTE, bilateral pneumonia, with worsening hypoxia and gentleman with recently limited mobility due to right femoral and ankle fractures, at elevated risk of additional complications. Coding Level of Care Code Acute Icing Mixer for [facility] Fwd Diagnoses Pulmonary embolus, right I26.99 Bilateral pneumonia J18.9 Renal mass, right N28.89 Dehydration E86.0 NSTEMI (non-ST elevated myocardial infarction) I21.4 Hyponatremia E87.1
[2020-09-26] MEDS: HYDROcodone-acetaminophen 5-325 mg Tablet 1 TAB PO (23:46)
[2020-09-26] MEDS: cefTRIAXone 1,000 MG in sodium chloride 0.9% (plus) 50 ML 100 MG IV (23:47)
[2020-09-26] MEDS: ondansetron 2 mg/ML SDV 2 mL 4 MG IVP (23:52)
[2020-09-27] VITALS (11 sets, daily range): BP systolic 120–150; BP diastolic 68–88; PULSE 62–85; RESP 16–30; TEMP 36.6–38.1; O2SAT 89–96
[2020-09-27 05:01] LABS: Basophils % 0.3 %; Eosinophils % 0.1 %; Hematocrit 30.9 % (42.0-52.0); Hemoglobin 9.6 g/dL (11.7-16.6); Lymphocytes # 0.7 10^3/uL (0.8-4.8); Mean Corpuscular HGB Conc 31.1 g/dL (30.0-36.0); Mean Corpuscular Hemoglobin 27.2 pg (28.0-34.0); Mean Corpuscular Volume 87.5 fL (80-94); Mean Platelet Volume 10.2 fL (7.4-10.4); Monocytes # 0.6 10^3/uL (0.2-0.9); Monocytes % 8.5 %; Neutrophils % 80.7 %; Nucleated Red Blood Cells % 0 %; Platelet Count 210 10^3/cmm (130-400); Red Blood Count 3.53 10^6/uL (4.1-5.3); Red Cell Distribution Width 13.5 % (12.1-15.1); White Blood Count 7.2 10^3/uL (4.0-10.0)
[2020-09-27 05:06] LABS: INR 1.12 (0.8-1.2)
[2020-09-27] MEDS: enoxaparin 80 mg/0.8 mL Syringe SUBCUT ×2 (05:10→17:29)
[2020-09-27] MEDS: azithromycin 500 MG in sodium chloride 0.9% 250 ML 250 MG IV (05:10)
[2020-09-27 05:16] LABS: Lactate (Lactic Acid level) 0.9 mmol/L (0.5-2.2)
[2020-09-27 05:18] LABS: Alanine Aminotransferase 9 U/L (0-41); Albumin Level 2.8 g/dL (3.5-5.2); Alkaline Phosphatase 72 IU/L (40-130); Anion Gap 13.1 (5-19); Aspartate Amino Transferase 16 U/L (0-40); Blood Urea Nitrogen 11 mg/dL (8-23); C Reactive Protein 108.7 mg/L (0.0-4.9); Calcium 8.3 mg/dL (8.5-10.5); Carbon Dioxide 24 mmol/L (22-29); Chloride 102 mmol/L (98-107); Glucose 94 mg/dL (65-115); Magnesium 1.7 mg/dL (1.7-2.3); Osmolality Calculated 279 mOsm/kg (285-295); Phosphorus 2.5 mg/dL (2.5-4.5); Potassium 4.1 mmol/L (3.5-5.1); Sodium 135 mmol/L (136-145); Total Bilirubin 0.5 mg/dL (0.15-1.2); Total Protein 5.8 g/dL (6.6-8.7)
[2020-09-27 05:28] LABS: NT Pro B Type Natriuretic Pept 988 pg/mL (0-450); Procalcitonin 0.14 ng/mL (0-0.5)
[2020-09-27 05:39] LABS: Creatine Phosphokinase 47 U/L (39-308)
--- NOTE | 2020-09-27 09:00 | PC.CHAP ---
Pastoral Care Encounter/Spiritual Assessment Type of Contact [] Declined cut off saw grader visit [] Patient/Family/Request visit [] Outpatient visit [] Follow-up visit [] Physician referral [] Code/Alert [x] Routine visit [] Staff referral [] Actively dying [] Patient sleeping [] Family support [] [] Out of room [] Palliative care [] [] Receiving care in room [] Pre-surgical visit [] Trauma [] Long length of stay [] ICU visit [] Other: Relational/Emotional Strength [] Patient feels connected with others/family/visitors/staff [] Distress [] Loneliness/isolation [] Abandonment Spirituality of Patient [] Person of Adali [] Attends Muslim of their Adali [] Believes in Prayer [] Reads Bible or Christian materials [] There are Spiritual issues to be addressed [employer] Interventions [x] Prayer [x] Active listening [x] Non-anxious presence [x] Spiritual/emotional support [] Crisis/trauma care [] Spiritual counseling [] Bereavement support [] Provided bereavement packet [] Provided Bible/devotional materials [] Provided toy/stuffed animal, coloring book to patient or family member [] Provided Communion [] Anointing/Dike [] Salvation [x] Completed spiritual assessment [] Other: Impact on Illness or Injury [] Angry [] Fearful [] Anxious [] Often cries [] Exhaustion [] Unable to work [] Unable to attend episcopal [] Unable to walk/stand [] Unable to read [] Unable to drive [] Unable to eat/drink [] Unable to sleep [] Unable to be with family [] Patient intubated [] Other: Summary patient having breakfast.. feeling stronger.. Time spent with patient 10 min
[2020-09-27] MEDS: tamsulosin 0.4 mg Capsule PO (09:25)
[2020-09-27] MEDS: famotidine 20 mg Tablet PO ×2 (09:25→17:29)
[2020-09-27] MEDS: metoprolol tartrate 50 mg Tablet PO (09:25)
--- NOTE | 2020-09-27 10:00 | PC.NURSE ---
Dr. Wells notified patient experiencing hematuria. No new orders received at this time. Notify provider if hematuria persists, or if patient is unable to urinate. Nurse to continue to monitor.
--- NOTE | 2020-09-27 14:03 | P.PN_ITS ---
Subjective Subjective: Interval history: Pain in his foot has been improving. He did not notice mild hemaruria/clots noticed by his nurse this morning. Denies history of hematuria. Vitals/I&O/Wt Last Vital Signs Temp 98.4 F 09/27/20 11:32 Pulse 66 09/27/20 11:32 Resp 24 H 09/27/20 11:32 BP 133/75 09/27/20 11:32 Pulse Ox 96 09/27/20 11:32 09/26/20 09/27/20 09/27/20 22:59 06:59 14:59 Intake Total 1120 / 2090 400 / 2490 120 / 120 Output Total 375 / 700 700 / 700 Balance 745 / 1390 400 / 1790 -580 / -580 Physical Exam Const: COMMON NORMALS: no acute distress, patient oriented x3 and alert GENERAL APPEARANCE: cooperative and frail appearing ORIENTATION/CONSCIOUSNESS: Yes awake HENMT: COMMON NORMALS: oropharynx normal Neck/C-Spine: COMMON NORMALS: no JVD Resp: COMMON NORMALS: normal respiratory effort and clear to auscultation bilaterally AUSCULTATION: clear to auscultation bilaterally Cardio: COMMON NORMALS: no JVD, regular rhythm, S1 normal heart sound present, S2 normal heart sound present and No murmurs present (Cardio) RHYTHM: regular rhythm HEART SOUNDS: S1 normal heart sound present and S2 normal heart sound present GI: COMMON NORMALS: Normal to inspection, nondistended, normoactive bowel sounds present, Soft to palpation and non-tender PALPATION: Yes Soft to palpation Extremity: COMMON NORMALS: no joint enlargement and no pedal edema OTHER: Right knee in immobilizer. Neuro: COMMON NORMALS: patient oriented x3 and moves all extremities SENSORIUM/ORIENTATION: Yes alert Skin: COMMON NORMALS: no rashes or lesions noted GENERAL SKIN EXAM: no rashes or lesions noted Data : 09/27/20 04:19 09/27/20 04:19 A&P Assessment and plan (1) Pulmonary embolus, right: With noted hematuria, blood clots in urine this morning. Appears to have improved. Requiring anticoagulation. Will need to monitor him to make sure hematuria/clots are not recurrent issue. Follow-up also after discharge with urology. Discussed with him PE. Possible pneumonia. Echo with normal EF, mild AVR. Minimally thickened whilst. Trace to mild TVR. Mild PVR. Noted acute VTE in right popliteal and posterior tibial veins and left popliteal vein. Discussed with him regarding findings in the right kidney. Continue anticoagulation. Continue monitoring in the hospital due to worsening hypoxia. Status: Acute (2) Bilateral pneumonia: O2 improving gradually. Cont antibiotics. Likely will need O2 on discharge. Continue antibiotic. Follow-up blood, sputum cultures. Status: Acute (3) Renal mass, right: Concerning for malignancy. Discussed w and daughter - will need additional follow-up with urology. Consideration of timing of reimaging. Discussed with radiology, as well as with him. Unidentified mass, about 13-15 mm in size. Complex. Appears was obscured by bowel gas during prior ultrasound. Difficult to say if complex cyst, collapsed prior simple cyst, or possibly malignancy. Does not have appearance of septic embolus. Blood cultures repeatedly negative. Status: Acute (4) Dehydration: Encourage oral intake Status: Acute (5) NSTEMI (non-ST elevated myocardial infarction): Chest pain-free. Type II NSTEMI, likely secondary to pulmonary emboli, bilateral pneumonia Status: Acute (6) Hyponatremia: Improving. DC IVF. Status: Acute Additional A&P Information Deconditioning: Physical deconditioning following recent fall, fracture, surgery, hospitalization, subsequently with rehabilitation, but very weak after discharge, with bilateral DVT, with PE, hypoxia. Again requiring hospitalization. Discussed with him and strongly encouraged discharge to skilled nurse facility after hospitalization prior to return home. Appears his also be encouraging him as she has back issues and may have difficulties caring for him at home by herself. He appears initially to consider this after discussion with me, but then on discussion with his was adamant he would not want to go to skilled nurse facility for rehabilitation. Discussed with his , as well as with his daughter. They will be trying to arrange, in case he does not change his mind, additional support from one of his daughters and granddaughters who are nurses to come and stay with family in addition to home health to help care for him and continue efforts at rehabilitation and mobilization. Attestations Medical Necessity Statement*: Continue admission for assessment of management following PE, initiation of anticoagulation, with concomitant hematuria, requiring additional inpatient monitoring for any recurrence and to make sure he is tolerating anticoagulation prior to discharge. Disposition planning. Coding Level of Care Code Acute Composite Technician for [facility] Fwd Diagnoses Pulmonary embolus, right I26.99 Bilateral pneumonia J18.9 Renal mass, right N28.89 Dehydration E86.0 NSTEMI (non-ST elevated myocardial infarction) I21.4 Hyponatremia E87.1
[2020-09-27] MEDS: cefTRIAXone 1,000 MG in sodium chloride 0.9% (plus) 50 ML 100 MG IV (23:48)
[2020-09-28] VITALS (13 sets, daily range): BP systolic 129–168; BP diastolic 69–85; PULSE 69–90; RESP 18–28; TEMP 36.6–37.7; O2SAT 92–98
[2020-09-28 04:49] LABS: Basophils % 0.3 %; Eosinophils % 0.3 %; Hematocrit 29.8 % (42.0-52.0); Hemoglobin 9.3 g/dL (11.7-16.6); Lymphocytes # 0.7 10^3/uL (0.8-4.8); Lymphocytes % 8.9 %; Mean Corpuscular HGB Conc 31.2 g/dL (30.0-36.0); Mean Corpuscular Hemoglobin 27.3 pg (28.0-34.0); Mean Corpuscular Volume 87.4 fL (80-94); Mean Platelet Volume 9.9 fL (7.4-10.4); Monocytes # 0.7 10^3/uL (0.2-0.9); Neutrophils # 6.48 10^3/uL (1.8-7.7); Nucleated Red Blood Cells % 0 %; Platelet Count 219 10^3/cmm (130-400); Red Blood Count 3.41 10^6/uL (4.1-5.3); Red Cell Distribution Width 13.2 % (12.1-15.1)
[2020-09-28] MEDS: enoxaparin 80 mg/0.8 mL Syringe SUBCUT ×2 (04:51→17:58)
[2020-09-28] MEDS: azithromycin 500 MG in sodium chloride 0.9% 250 ML 250 MG IV (04:51)
[2020-09-28 04:55] LABS: INR 1.16 (0.8-1.2)
[2020-09-28 05:05] LABS: Lactate (Lactic Acid level) 1.1 mmol/L (0.5-2.2)
[2020-09-28 05:13] LABS: Procalcitonin 0.16 ng/mL (0-0.5)
[2020-09-28 05:23] LABS: Creatine Phosphokinase 33 U/L (39-308)
[2020-09-28 06:19] LABS: Alanine Aminotransferase 9 U/L (0-41); Albumin Level 2.5 g/dL (3.5-5.2); Alkaline Phosphatase 71 IU/L (40-130); Anion Gap 14.8 (5-19); Aspartate Amino Transferase 17 U/L (0-40); Blood Urea Nitrogen 8 mg/dL (8-23); C Reactive Protein 138.2 mg/L (0.0-4.9); Calcium 8.2 mg/dL (8.5-10.5); Carbon Dioxide 23 mmol/L (22-29); Chloride 100 mmol/L (98-107); Globulin 3.4 g/dL (1.3-4.6); Glucose 95 mg/dL (65-115); Magnesium 1.8 mg/dL (1.7-2.3); Osmolality Calculated 276 mOsm/kg (285-295); Phosphorus 2.2 mg/dL (2.5-4.5); Potassium 3.8 mmol/L (3.5-5.1); Sodium 134 mmol/L (136-145); Total Bilirubin 0.6 mg/dL (0.15-1.2); Total Protein 5.9 g/dL (6.6-8.7)
--- NOTE | 2020-09-28 07:59 | XR_ITS ---
WS: [id number] XR chest 1V portable [id number] REASON FOR EXAM: hypoxia FINDINGS: Compared to the examination of 09/24/2020, peripheral infiltrates in the left lung persist and there a re now peripheral infiltrates in the right mid lung field. Right pleural effusion is now identifiable . No other interval change or new findings. XR/XR chest 1V portable [id number] IMPRESSION: Interval change as above.
[2020-09-28] MEDS: metoprolol tartrate 50 mg Tablet PO (09:38)
[2020-09-28] MEDS: sennosides-docusate Tablet 1 TAB PO (09:39)
[2020-09-28] MEDS: famotidine 20 mg Tablet PO ×2 (09:39→17:58)
[2020-09-28] MEDS: tamsulosin 0.4 mg Capsule PO (09:40)
--- NOTE | 2020-09-28 11:08 | PC.NURSE ---
pt has not voided this shift.bladder scan performed..volume 320 cc.plan was to i/o cath...but pt stated he had to void..and he voided 300 cc light luciano urine w/o difficulty.no clots noted.specimen sent to lab for ua as ordered
[2020-09-28 11:32] LABS: Urine Appearance Hazy (CLEAR); Urine Color Yellow (Yellow); pH Urine 6 (5-7)
[2020-09-28 11:33] LABS: Add Urine Microscopic? YES; Bilirubin Urine Neg (Negative); Blood Urine 3+ (Negative); Glucose Urine UA Norm (Normal); Ketones Urine 2+ (Negative); Leukocyte Esterase Urine Negative (Negative); Nitrate Urine Negative (Negative); Protein Urine Trace (Negative); Specific Gravity, Urine 1.015 (1.005-1.030); Urobilinogen Urine Norm (Negative)
[2020-09-28 11:48] LABS: Add Urine Culture? Yes; Bacteria Urine TRACE /hpf; WBC Urine 0-4 /hpf (0-5)
[2020-09-28] MEDS: HYDROcodone-acetaminophen 5-325 mg Tablet 1 TAB PO (15:00)
--- NOTE | 2020-09-28 15:33 | PC.NURSE ---
hydrocodone not scanned due to computer system down.pt verified through bracelet and verbally
--- NOTE | 2020-09-28 15:47 | USCV_ITS ---
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 82.8 Triphasic Triphasic 104.1 SFA Prox 92.0 Triphasic Triphasic 113.4 SFA Mid 111.7 Triphasic Triphasic 149.1 SFA Dist 114.4 Triphasic Triphasic 73.5 POP 73.6 Triphasic Triphasic 95.7 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
--- NOTE | 2020-09-28 19:54 | PM.PN ---
Subjective Subjective: Interval history: Earlier reported by his to be complaining of pain in his right lower leg, left foot. During my visit he denies any pain or discomfort. Denies chest pain. Denies trouble breathing. He does report that his appetite has been very poor. He remembers fondly the various fruit dishes and salads he has been having with his family at home. Wishes if this could be arranged here as well. Denies abdominal pain. Denies nausea. Does state that sometimes food may feel like it spends a long time in his stomach. Vitals/I&O/Wt Last Vital Signs Temp 99.8 F H 09/28/20 14:41 Pulse 72 09/28/20 14:41 Resp 26 H 09/28/20 14:41 BP 141/73 09/28/20 14:41 Pulse Ox 98 09/28/20 14:41 09/28/20 09/28/20 09/28/20 06:59 14:59 22:59 Intake Total 450 / 570 360 / 360 Output Total 700 / 700 Balance 450 / -130 -340 / -340 Physical Exam Const: COMMON NORMALS: no acute distress and alert GENERAL APPEARANCE: cooperative, comfortable and frail appearing ORIENTATION/CONSCIOUSNESS: Yes awake HENMT: COMMON NORMALS: oropharynx normal Neck/C-Spine: COMMON NORMALS: no JVD Resp: COMMON NORMALS: normal respiratory effort and clear to auscultation bilaterally AUSCULTATION: clear to auscultation bilaterally Cardio: COMMON NORMALS: no JVD, regular rhythm, S1 normal heart sound present, S2 normal heart sound present and No murmurs present (Cardio) RHYTHM: regular rhythm HEART SOUNDS: S1 normal heart sound present and S2 normal heart sound present GI: COMMON NORMALS: Normal to inspection, nondistended, normoactive bowel sounds present, Soft to palpation and non-tender PALPATION: Yes Soft to palpation Extremity: COMMON NORMALS: no joint enlargement and no pedal edema OTHER: Right thigh wound appears clean, healing well. No knee swelling or erythema. No tenderness on palpation. No swelling or tenderness in the right ankle. Left foot perhaps somewhat dry skin, but otherwise no signs of ischemia. Palpable strong DP and PT pulses. Neuro: COMMON NORMALS: moves all extremities SENSORIUM/ORIENTATION: Yes alert Skin: COMMON NORMALS: no rashes or lesions noted GENERAL SKIN EXAM: no rashes or lesions noted Data : 09/28/20 04:27 09/28/20 05:54 Micro: Microbiology 09/27/20 21:53 Blood Culture - Preliminary Blood SPECIMEN COLLECTED 09/27/20 21:50 Blood Culture - Preliminary Blood SPECIMEN COLLECTED A&P Assessment and plan (1) Fever: Additional assessment today to exclude urinary retention, appears voided well, 300 mL, after visualized 320 mL on bladder scan. Gross hematuria resolved. UA not suggestive of UTI. Follow-up urine culture. Chest x-ray with persistent pneumonia. Fever possibly secondary to pneumonia, possibly due to VTE/PE. Blood cultures collected. No leukocytosis or other signs of sepsis. Right leg, wound, appears to be healing well. He denies abdominal pain. Normal exam is benign. Status: Acute (2) Pulmonary embolus, right: Hematuria improved. Microscopic hematuria still present on UA today. Monitor. Continue anticoagulation. Echo with normal EF, mild AVR. Minimally thickened whilst. Trace to mild TVR. Mild PVR. Noted acute VTE in right popliteal and posterior tibial veins and left popliteal vein. Possible mass in the right kidney. Status: Acute (3) Bilateral pneumonia: Persistent pneumonia on imaging. Oxygenation appears stabilized. Doing well on nasal cannula. No productive cough. Unable to collect sputum sample. Low-grade fever. O2 improving gradually. Cont antibiotics. Likely will need O2 on discharge. Continue antibiotic. Follow-up blood cultures. COVID-19 PCR -ve 09/25. Status: Acute (4) Renal mass, right: Concerning for malignancy. Asking him to follow-up with urology for consideration of timing and modality of reevaluation. Discussed with radiology, as well as with him. Unidentified mass, about 13-15 mm in size. Complex. Appears was obscured by bowel gas during prior ultrasound. Difficult to say if complex cyst, collapsed prior simple cyst, or possibly malignancy. Does not have appearance of septic embolus. Blood cultures repeatedly negative. Status: Acute (5) Dehydration: Encourage oral intake Status: Acute (6) NSTEMI (non-ST elevated myocardial infarction): Chest pain-free. Type II NSTEMI, likely secondary to pulmonary emboli, bilateral pneumonia Status: Acute (7) Hyponatremia: Encourage p.o. intake. Monitor. Status: Acute (8) DVT (deep venous thrombosis): With noted intermittent pain in his feet reported by his . Not present during my evaluation, however, consideration may need to be given to post VTE phlebitis. His was concerned about arterial perfusion. Will assess arterial duplex, although does appear to have strong palpable pulses. Does have some dry cracked skin on his left foot. Requested to moisturize. If has good arterial perfusion, may benefit from compression therapy. Status: Acute (9) Poor appetite: He is noted to have poor appetite. He states he eats much better at home, and enjoys the various dishes rich in fruit he frequently has with his family. States has not had much appetite here for the hospital food. Denies abdominal discomfort or pain. Denies at this time nausea, although nausea was intermittently reported by his . He does feel that perhaps food stays a long time in his stomach at times. May benefit from additional evaluation after discharge with gastric emptying study, barium swallow. Requesting to add more fruit to his diet. With regards to protein supplement he prefers strawberry flavor, not chocolate. Status: Acute Additional A&P Information Deconditioning: Absolutely declined consideration of fpc facility placement. Continue physical therapy. His family is making arrangements for additional support for his to care for him at home who has a bad back, and is considered about being able to care for him by herself. If does not change his mind about going to rehab, would at least benefit from home health. Attestations Medical Necessity Statement*: Continue admission for assessment of management of bilateral pneumonia, PE, assessment for any additional sources of infection and his fever, discharge planning and arrangements. Coding Level of Care Code Acute Tinning Equipment Tender for [facility] Diagnoses Fever R50.9 Pulmonary embolus, right I26.99 Bilateral pneumonia J18.9 Renal mass, right N28.89 Dehydration E86.0 NSTEMI (non-ST elevated myocardial infarction) I21.4 Hyponatremia E87.1 DVT (deep venous thrombosis) I82.409 Poor appetite R63.0
--- NOTE | 2020-09-28 21:28 | PC.NURSE ---
PT IS CONFUSED. PT TRYING TO FIND SHOES TO LEAVE. PT STATE THAT THEY DON'T KNOW WHERE THEY ARE. PT HAD PULLED OFF TELE WIRES. PT WAS EASILY REDIRECTED. PT DENIES PAIN AT THIS TIME. WILL CONTINUE TO MONITOR.
[2020-09-28] MEDS: cefTRIAXone 1,000 MG in sodium chloride 0.9% (plus) 50 ML 100 MG IV (22:57)
[2020-09-29] VITALS (11 sets, daily range): BP systolic 137–163; BP diastolic 65–85; PULSE 69–81; RESP 18–26; TEMP 36.6–37.3; O2SAT 92–98
--- NOTE | 2020-09-29 01:53 | PC.NURSE ---
PT PULLED OUT IV. PT IS CONFUSED. 20G RIGHT AC X 1 STICK. GOOD BLOOD RETURN. WILL CONTINUE TO MONITOR.
[2020-09-29] MEDS: azithromycin 500 MG in sodium chloride 0.9% 250 ML 250 MG IV (04:23)
[2020-09-29] MEDS: enoxaparin 80 mg/0.8 mL Syringe SUBCUT ×2 (04:23→16:27)
--- NOTE | 2020-09-29 04:31 | PC.NURSE ---
PT IS CONFUSED AND ORIENTATED TO SELF. PT IS RESTING IN BED. PT DENIES PAIN. WILL CONTINUE TO MONITOR.
[2020-09-29 05:03] LABS: Basophils % 0.3 %; Eosinophils % 0.4 %; Hematocrit 31.4 % (42.0-52.0); Hemoglobin 9.8 g/dL (11.7-16.6); Lymphocytes # 0.7 10^3/uL (0.8-4.8); Lymphocytes % 9.4 %; Mean Corpuscular HGB Conc 31.2 g/dL (30.0-36.0); Mean Corpuscular Hemoglobin 27.1 pg (28.0-34.0); Mean Corpuscular Volume 86.7 fL (80-94); Mean Platelet Volume 10.3 fL (7.4-10.4); Monocytes # 0.7 10^3/uL (0.2-0.9); Monocytes % 9.1 %; Neutrophils # 6.27 10^3/uL (1.8-7.7); Neutrophils % 80.4 %; Nucleated Red Blood Cells % 0 %; Platelet Count 271 10^3/cmm (130-400); Red Blood Count 3.62 10^6/uL (4.1-5.3); Red Cell Distribution Width 13.1 % (12.1-15.1); White Blood Count 7.8 10^3/uL (4.0-10.0)
[2020-09-29 05:21] LABS: Alanine Aminotransferase 11 U/L (0-41); Albumin Level 2.7 g/dL (3.5-5.2); Alkaline Phosphatase 79 IU/L (40-130); Anion Gap 15.1 (5-19); Aspartate Amino Transferase 18 U/L (0-40); Blood Urea Nitrogen 10 mg/dL (8-23); Calcium 8.5 mg/dL (8.5-10.5); Carbon Dioxide 23 mmol/L (22-29); Chloride 100 mmol/L (98-107); Globulin 3.6 g/dL (1.3-4.6); Glucose 87 mg/dL (65-115); Osmolality Calculated 276 mOsm/kg (285-295); Potassium 4.1 mmol/L (3.5-5.1); Sodium 134 mmol/L (136-145); Total Bilirubin 0.6 mg/dL (0.15-1.2); Total Protein 6.3 g/dL (6.6-8.7)
[2020-09-29] MEDS: tamsulosin 0.4 mg Capsule PO (08:54)
[2020-09-29] MEDS: metoprolol tartrate 50 mg Tablet PO (08:54)
[2020-09-29] MEDS: famotidine 20 mg Tablet PO ×2 (08:54→18:19)
--- NOTE | 2020-09-29 09:33 | PC.NURSE ---
Patient reporting severe pain in left leg with therapy patient unable to lift leg during exercise attempts made to assist events reported to Dr. Wells instructions to order 3 view left hip, 2 view tib fib, CT lumbar spine Tylenol 650mg Q6H PRN
--- NOTE | 2020-09-29 09:35 | CT_ITS ---
WS: [id number] CT LUMBAR SPINE TECHNIQUE: Noncontrast CT of the lumbar spine with coronal and sagittal reformatted images. CLINICAL INFORMATION: PAIN COMPARISON: None. DLP: 2378.[address] scans at [facility] use at least one of these dose optimization techniques: automat ed exposure control; mA and/or kV adjustment per patient size (includes targeted exams where dose is matched to clinical indication); or iterative reconstruction. FINDINGS: Mild lumbar curve. No acute compression. Mild disc bulging L3-L5. Peripheral disc calcification L5-S1 . L1-L2: Mild annular bulging. Mild central canal stenosis. Foramen are patent. L2-L3: Mild annular bulging with moderate facet arthropathy. Moderate central canal stenosis. Mild bi lateral foraminal narrowing. Moderate facet arthropathy. L3-L4: Mild annular bulging. Moderate central canal stenosis. Moderate facet arthropathy. Mild right foraminal narrowing. L4-L5: Shallow right pericentral disc protrusion impinges the traversing right L5 nerve root in the r ight subarticular recess. Moderate central canal stenosis. Moderate facet arthropathy. Mild right gre ater than left foraminal narrowing. Moderate facet arthropathy. L5-S1: Small central disc osteophyte protrusion with slight contact of the right S1 nerve root. Mild bilateral foraminal narrowing. Adrenal glands are normal. Increased attenuation right renal cortical cyst consistent with hemorrhagi c cyst measuring [address]/CT lumbar spine wo con* [id number] IMPRESSION: 1. Mild lumbar curve. No acute compression. No evidence of osteomyelitis. 2. Moderate central canal stenosis L2-3, L3-4, L4-5. 3. Shallow right pericentral protrusion L4-5 impinges the traversing right L5 nerve root in the subarticular recess. Recommend correlation for L5 nerve root symptoms. 4. Tiny central disc osteophyte protrusion L5-S1 slightly contacts the right S 1 nerve root. 5. Mild to moderate foraminal narrowing described above.
--- NOTE | 2020-09-29 09:35 | XR_ITS ---
WS: [id number] XR hip LT 2-3V wo/w pel* [id number] REASON FOR EXAM: PAIN FINDINGS: Mild narrowing of the right hip joint space with osteophytic spurring of the acetabulum. No focal bony abnormality. No significant soft tissue abnormality. 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
--- NOTE | 2020-09-29 09:57 | PC.OT ---
Therapist attempted tx. Pt was receiving bath from LOG SAWYER when therapist arrived. LOG SAWYER stated he was needed for testing when she was finished. Will attempt tx at a later time.
--- NOTE | 2020-09-29 10:23 | XR_ITS ---
WS: [id number] XR knee LT 3V* [id number] REASON FOR EXAM: pain FINDINGS: Mild bony demineralization. Mild narrowing of the medial knee joint compartment. Lateral knee joint compartment is intact. Mild narrowing of the patellofemoral joint space with mild osteophytic spurring of the patella. No focal bony abnormality. No soft tissue abnormality. XR/XR knee LT 3V* [id number] IMPRESSION: Mild osteoarthropathy of the left knee.
--- NOTE | 2020-09-29 10:23 | XR_ITS ---
WS: [id number] XR foot LT min 3V* [id number] REASON FOR EXAM: pain FINDINGS: Hammer toe deformity. Mild symmetric narrowing of the DIP and MIP joints of the left toes with subcho ndral sclerosis. No erosions or soft tissue calcifications. No focal bony abnormality in the left for efoot. Joint spaces in the mid foot are intact. No focal bony abnormality or significant soft tissue abnormality. Joint spaces are intact and the hindfoot. Small enthesophyte from the calcaneus at the insertion of t he plantar fascia. 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
--- NOTE | 2020-09-29 10:24 | US_ITS ---
WS: [id number] US soft tissue/extremity [id number] REASON FOR EXAM: L knee - joint pain, effusion FINDINGS: No significant fluid collection identified. US/US soft tissue/extremity [id number] IMPRESSION: No drainable fluid collection.
--- NOTE | 2020-09-29 11:19 | P.PN_ITS ---
Subjective Subjective: Interval history: Today he is having quite a bit of pain in his left leg, some in the right as well. He could not really explain his pain well it appears to physical therapy and nursing staff, but it was bothersome enough for him that he could not bear weight. He otherwise is breathing well. Denies chest pain. No other complaints. No abdominal pain or discomfort. Tried a little bit of boost this morning. 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, comfortable and frail appearing ORIENTATION/CONSCIOUSNESS: Yes awake HENMT: COMMON NORMALS: oropharynx normal Neck/C-Spine: COMMON NORMALS: no JVD Resp: COMMON NORMALS: normal respiratory effort and clear to auscultation bilaterally AUSCULTATION: clear to auscultation bilaterally Cardio: COMMON NORMALS: no JVD, regular rhythm, S1 normal heart sound present, S2 normal heart sound present and No murmurs present (Cardio) RHYTHM: regular rhythm HEART SOUNDS: S1 normal heart sound present and S2 normal heart sound present GI: COMMON NORMALS: Normal to inspection, nondistended, normoactive bowel sounds present, Soft to palpation and non-tender PALPATION: Yes Soft to palpation Extremity: COMMON NORMALS: no joint enlargement and no pedal edema OTHER: Right thigh wound appears clean, healing well. No knee swelling or erythema. No tenderness on palpation. Left lower extremity with tenderness on range of motion of the left foot. Ankle appears to be nontender, nonswollen. No erythema or notable swelling in the left knee, although perhaps may have some effusion, difficult to assess. Painful passive knee flexion. Appears to tolerate left leg elevation, unable to assess internal, external rotation. Palpable strong pulses PT, DP. No edema. Neuro: COMMON NORMALS: moves all extremities SENSORIUM/ORIENTATION: Yes alert Skin: COMMON NORMALS: no rashes or lesions noted GENERAL SKIN EXAM: no rashes or lesions noted Data : 09/29/20 04:32 09/29/20 04:32 Micro: Microbiology 09/28/20 11:00 Urine Culture - Preliminary Urine,Clean Catch 09/27/20 21:53 Blood Culture - Preliminary Blood NEGATIVE TO DATE 09/27/20 21:50 Blood Culture - Preliminary Blood NEGATIVE TO DATE A&P Assessment and plan (1) Leg pain: Severe left leg pain today, unable to stand up with physical therapy. Difficult to localize pain. He is not a very good historian. Going through examination appears he is having pain in his left foot, but also on the left knee with flexion. Ankle joint appears unaffected. He thought he may have had some pain in the left fairchild earlier, but not currently. No pain in the calf. Pain is perhaps with some electric quality to it. Denies any groin anesthesi a. No incontinence. On examination does not have any redness, swelling of his joints. There is no warmth. Tenderness in his foot to passive range of motion. Tenderness in the knee on flexion. We will go ahead and assess additionally with lumbar spine CT. Pending assessment with arterial Doppler, although I do palpate pulses. Given prior fall, additional assessment with x-rays of left foot, knee, hip. There is perhaps some effusion on examination in the left knee, although difficult to examine. Will see if he can obtain ultrasound to assess for significant joint effusion which could be tapped. Discussed also possible contribution from post phlebitis syndrome. After arterial Doppler studies, consider addition of compression therapy. Status: Acute (2) Fever: Fever appears to resolved. Last temp 99.8 was yesterday afternoon. Reassess for urinary retention for which he appears to be at risk. Continue treatment of possible pneumonia. Continue anticoagulation for VTE, PE. Blood cultures collected. No leukocytosis or other signs of sepsis. Right leg, wound, appears to be healing well. He denies abdominal pain. Normal exam is benign. Status: Acute (3) Pulmonary embolus, right: Hematuria improved. Microscopic hematuria still present on UA today. Monitor. Continue anticoagulation. Echo with normal EF, mild AVR. Minimally thickened whilst. Trace to mild TVR. Mild PVR. Noted acute VTE in right popliteal and posterior tibial veins and left popliteal vein. Possible mass in the right kidney. Status: Acute (4) Bilateral pneumonia: Continue antibiotics for possible pneumonia. Continue anticoagulation for PE. Follow-up blood cultures. Continue antibiotic. Follow-up blood cultures. COVID-19 PCR -ve 09/25. Status: Acute (5) Renal mass, right: Concerning for malignancy. Asking him to follow-up with urology for consideration of timing and modality of reevaluation. Discussed with radiology, as well as with him. Unidentified mass, about 13-15 mm in size. Complex. Appears was obscured by bowel gas during prior ultrasound . Difficult to say if complex cyst, collapsed prior simple cyst, or possibly malignancy. Does not have appearance of septic embolus. Blood cultures repeatedly negative. Status: Acute (6) Dehydration: Encourage oral intake Status: Acute (7) NSTEMI (non-ST elevated myocardial infarction): Chest pain-free. Type II NSTEMI, likely secondary to pulmonary emboli, bilateral pneumonia Status: Acute (8) Hyponatremia: Encourage p.o. intake. Monitor. Status: Acute (9) DVT (deep venous thrombosis): With noted intermittent pain in his feet reported by his . Not present during my evaluation, however, consideration may need to be given to post VTE phlebitis. If has good arterial perfusion on arterial Dopplers, may benefit from compression therapy. Status: Acute (10) Poor appetite: Poor oral intake, occasionally dysphagia with food staying in the stomach long time. Sometimes even with vomiting, although I do not believe we have observed this in the hospital. Discussed with his , may benefit from additional assessment by gastric emptying study, barium swallow on outpatient basis. He also has particular food preferences, discussed with his that if she is able to bring some of the food that he prefers he may enjoy it better. Requesting for additional fruit be added to his meals hospital. Add protein shakes. Status: Acute Additional A&P Information Deconditioning: Absolutely declined consideration of care home facility placement. Continue physical therapy. His family is making arrangements for additional support for his to care for him at home who has a bad back, and is considered about being able to care for him by herself. If does not change his mind about going to rehab, would at least benefit from home health. Attestations Medical Necessity Statement*: Continue admission for assessment of management of lower extremity pain with inability to bear weight or ambulate, poor oral intake, poor recovery after recent fall, fractures, treatment of pneumonia, PE, VTE. Coding Level of Care Code Acute [employer] S[employer] for [employer] Fwd Diagnoses Leg pain M79.606 Fever R50.9 Pulmonary embolus, right I26.99 Bilateral pneumonia J18.9 Renal mass, right N28.89 Dehydration E86.0 NSTEMI (non-ST elevated myocardial infarction) I21.4 Hyponatremia E87.1 DVT (deep venous thrombosis) I82.409 Poor appetite R63.0
[2020-09-29 13:27] LABS: Creatine Phosphokinase 30 U/L (39-308); Uric Acid 4.2 mg/dL (3.4-7.0)
[2020-09-29 13:54] LABS: Erythrocyte Sedimentation Rate 118 mm/hr (0-10)
--- NOTE | 2020-09-29 21:41 | CTR_ITS ---
PROCEDURE INFORMATION: Exam: CT Left Lower Extremity Without Contrast, Knee Exam date and time: 09/29/2020 10:02 PM Age: 79 years old Clinical indication: Pain; Knee; Left; Additional info: Pain, assessment for fluid for arthrocentesis TECHNIQUE: Imaging protocol: CT of the Left lower extremity without contrast was performed. Exam focused on the knee. Radiation optimization: All CT scans at this facility use at least one of these dose optimization techniques: automated exposure control; mA and/or kV adjustment per patient size (includes targeted exams where dose is matched to clinical indication); or iterative reconstruction. COMPARISON: No relevant prior studies available. RADIATION DOSE METRICS: Total DLP (mGy-cm): 353 FINDINGS: Bones/joints: There is a moderate joint effusion seen anteriorly within the left knee. The depth of the joint effusion measures approximately 14 mm medial to the patella and approximately 15.5 mm inferolateral to the patella. Soft tissues: Normal. CT/CT knee LT wo con* [id number] IMPRESSION: Moderate anterior joint effusion of the left knee as described above. Radiation Dose CTDIVOL = (mGy): DLP = 353 (mGy-cm)
[2020-09-29] MEDS: cefTRIAXone 1,000 MG in sodium chloride 0.9% (plus) 50 ML 100 MG IV (22:51)
[2020-09-30] VITALS (10 sets, daily range): BP systolic 137–153; BP diastolic 65–89; PULSE 81–120; RESP 18–29; TEMP 36.7–37.8; O2SAT 90–95
--- NOTE | 2020-09-30 02:14 | PC.NURSE ---
Pt has complained of leg pain for the duration of this shift. Patient has had ice packs placed on his feet for the pain but denies any improvement. Patient has been offered his pain medication that he has ordered PRN and he continues to refuse it. Pt has been educated on his medications and continues to refuse them and has been educated to notify me if he changes his mind about pain medications.
[2020-09-30] MEDS: enoxaparin 80 mg/0.8 mL Syringe SUBCUT ×2 (04:02→17:26)
[2020-09-30] MEDS: azithromycin 500 MG in sodium chloride 0.9% 250 ML 250 MG IV (04:02)
[2020-09-30] MEDS: acetaminophen 325 mg Tablet 650 MG PO ×2 (04:02→17:26)
[2020-09-30 04:53] LABS: Basophils % 0.4 %; Eosinophils % 0.3 %; Hematocrit 28.5 % (42.0-52.0); Lymphocytes # 0.5 10^3/uL (0.8-4.8); Lymphocytes % 6.9 %; Mean Corpuscular HGB Conc 31.6 g/dL (30.0-36.0); Mean Corpuscular Hemoglobin 27.2 pg (28.0-34.0); Mean Corpuscular Volume 86.1 fL (80-94); Mean Platelet Volume 9.8 fL (7.4-10.4); Monocytes # 0.8 10^3/uL (0.2-0.9); Monocytes % 10.9 %; Neutrophils # 5.87 10^3/uL (1.8-7.7); Neutrophils % 80.9 %; Nucleated Red Blood Cells % 0 %; Platelet Count 301 10^3/cmm (130-400); Red Blood Count 3.31 10^6/uL (4.1-5.3); Red Cell Distribution Width 13.1 % (12.1-15.1); White Blood Count 7.3 10^3/uL (4.0-10.0)
[2020-09-30 05:15] LABS: Alanine Aminotransferase 13 U/L (0-41); Albumin Level 2.5 g/dL (3.5-5.2); Alkaline Phosphatase 78 IU/L (40-130); Anion Gap 15.9 (5-19); Aspartate Amino Transferase 20 U/L (0-40); Blood Urea Nitrogen 11 mg/dL (8-23); Calcium 8.3 mg/dL (8.5-10.5); Carbon Dioxide 22 mmol/L (22-29); Chloride 98 mmol/L (98-107); Globulin 3.6 g/dL (1.3-4.6); Glucose 105 mg/dL (65-115); Osmolality Calculated 274 mOsm/kg (285-295); Potassium 3.9 mmol/L (3.5-5.1); Sodium 132 mmol/L (136-145); Total Bilirubin 0.6 mg/dL (0.15-1.2); Total Protein 6.1 g/dL (6.6-8.7)
--- NOTE | 2020-09-30 09:05 | PC.NURSE ---
Patient walker in [place] with PT this am tolerated well mild sob and reports of neck and back pain that was relived with rest noted patient now resting in bed on right side no complaints of pain at this time patient is pleasant
[2020-09-30] MEDS: tamsulosin 0.4 mg Capsule PO (09:43)
[2020-09-30] MEDS: metoprolol tartrate 50 mg Tablet PO (09:43)
[2020-09-30] MEDS: famotidine 20 mg Tablet PO ×2 (09:43→17:26)
--- NOTE | 2020-09-30 10:48 | DCPLANNER ---
IMM completed with pt's , Patti over the phone 09/30/20 @ [id number]. Patti was informed copy of rights is in pt's room.
[2020-09-30 14:23] LABS: Cyclic Citrullinated Peptide <16 UNITS
--- NOTE | 2020-09-30 15:18 | XRR_ITS ---
PROCEDURE INFORMATION: Exam: XR Left Hip Exam date and time: 09/30/2020 3:43 PM Age: 79 years old Clinical indication: Hip pain; Left hip TECHNIQUE: Imaging protocol: XR Left hip. Views: 2 or 3 views hip with pelvis when performed. COMPARISON: CR XR hip LT 2-3V wo/w pel* [id number] 09/29/2020 10:53 AM FINDINGS: Bones/joints: No fractures. No aggressive bone lesion. Unremarkable joint alignment. Sclerosis of articular surface of the acetabulum with marginal osteophytic spurring. No osteonecrosis. Soft tissues: Unremarkable. Other findings: Scattered arterial wall calcification. XR/XR hip LT 2-3V wo/w pel* [id number] IMPRESSION: 1. Negative for acute left hip abnormality. 2. No change from the comparison on 09/29/2020.
--- NOTE | 2020-09-30 15:18 | XRR_ITS ---
PROCEDURE INFORMATION: Exam: XR Right Femur Exam date and time: 09/30/2020 3:43 PM Age: 79 years old Clinical indication: Pain; Hip; Right; Prior surgery; Surgery date: 3-7 days post-operative; Additional info: Follow TECHNIQUE: Imaging protocol: XR Right femur. Views: 2 views. COMPARISON: CR XR femur RT min 2V* [id number] 09/20/2020 9:25 AM FINDINGS: Bones/joints: Surgical plate and screw fixation of distal femoral diaphyseal fracture. Relative anatomic alignment. No loosening of hardware. No change in mineralization from recent prior. No significant bone callus. Soft tissues: Unremarkable. Other findings: Scattered arterial wall calcification. XR/XR femur RT min 2V* [id number] IMPRESSION: No change in the surgically fixated right distal femur fracture.
[2020-09-30 15:22] LABS: Anti-Nuclear Antibody Screen NEGATIVE (NEGATIVE)
--- NOTE | 2020-09-30 15:48 | PM.CONSULT ---
Providers/Reason For Consult Consulting Physican/Specialty*: Dr. Anju Mixon Reason for Consult*: Left lower extremity pain, status post right supracondylar femur fracture with open reduction internal fixation, and bilateral DVT Requesting Physcian: Juan Wells Attending Physician: Juan Wells Primary Care Provider: Darci Frances DO History of Present Illness History of Present Illness Zaki Segura is a 79 year old male who underwent open reduction internal fixation of a right supracondylar femur fracture with Dr. Van on August 30, 2020. The patient presented back to the hospital with a diagnosis of bilateral DVT. He was admitted on September 25. Currently, he is complaining of significant left knee pain as well as left lower extremity pain. I was asked to see the patient in consultation to evaluate postoperative findings as well as this left lower extremity pain. The patient notes that he does have a history of gout. He has already had an x-ray and CT scan of his left knee. Findings were relatively insignificant. There did appear to be a small joint effusion. Review of Systems General: Reports: 10 or more systems reviewed and unremarkable except in HPI and below Const: Reports: fatigue and malaise; Denies: fever(s) or chills Eyes: Denies: change in vision, blurry vision or eye redness ENMT: Denies: throat pain, swelling of lips/tongue, ear or mastoid pain or nasal congestion Card: Denies: chest pain, palpitations, irregular heart rhythm, edema, syncope, dyspnea on exertion or orthopnea Resp: Reports: dyspnea; Denies: productive cough, non-productive cough or wheezing GI: Denies: abdominal pain, nausea, vomiting, hematemesis, diarrhea, constipation, GI cramping, hematochezia or melena : Denies: flank pain, difficulty urinating, dysuria, urinary frequency or urinary urgency Musc: Reports: joint warmth; Denies: neck pain, back pain, extremity pain, joint pain, joint redness, limited range of motion or muscle weakness Skin/Breast: Denies: rash, pruritus, erythema, skin pain or skin tenderness Neuro: Denies: headache(s), numbness in extremities, weakness in extremities, sensory changes, difficulty walking, dizziness, vertigo, confusion or Slurred speech present Psych: Denies: anxiety or depression Endo: Denies: polyuria or polydipsia All/Imm: Denies: urticaria, throat swelling or tongue swelling Meds/Allergies Home Medications and Allergies Home Medications Medication Instructions Recorded Confirmed Last Taken Type tamsulosin 0.4 mg capsule 0.4 mg PO DAILY #90 cap 01/13/20 09/25/20 09/24/20 08:00 Rx amoxicillin-pot clavulanate 1 tab PO BID 09/25/20 09/25/20 09/24/20 08:00 History cyclobenzaprine 10 mg PO TID PRN 09/25/20 09/25/20 Unknown History metoprolol tartrate 25 mg PO DAILY 09/25/20 09/25/20 09/24/20 08:00 History ondansetron HCl 4 mg PO Q8H 09/25/20 09/25/20 Unknown History sennosides-docusate sodium [Senna 1 tab-cap PO DAILY PRN 09/25/20 09/25/20 Unknown History with Docusate Sodium] Allergies Allergy/AdvReac Type Severity Reaction Status Date / Time Sulfa (Sulfonamide Allergy UNKNOWN Verified 09/20/20 09:18 Antibiotics) sulfamethoxazole Allergy UNKNOWN Verified 09/20/20 09:18 [From Bactrim] trimethoprim [From Bactrim] Allergy UNKNOWN Verified 09/20/20 09:18 Current Medications Current Medications Generic Name Dose Route Start Last Admin Trade Name Freq PRN Reason Stop Dose Admin Acetaminophen 650 mg 09/29/20 09:35 09/30/20 04:02 Acetaminophen 325 Mg Tablet PO 650 mg Q6H PRN Administration MILD PAIN Enoxaparin Sodium 80 mg 09/25/20 16:00 09/30/20 04:02 Enoxaparin 80 Mg/0.8 Ml Syringe SUBCUT 80 mg Q12H TORRIE Administration Famotidine 20 mg 09/25/20 09:00 09/30/20 09:43 Famotidine 20 Mg Tablet PO 20 mg BID TORRIE Administration Ceftriaxone Sodium 1,000 mg/ 50 mls @ 100 mls/hr 09/25/20 23:00 09/29/20 23:56 Sodium Chloride IV Infused Q24H TORRIE Infusion Protocol Azithromycin 500 mg/ Sodium 250 mls @ 250 mls/hr 09/25/20 05:00 09/30/20 07:00 Chloride IV Infused Q24H TORRIE Infusion Protocol Metoprolol Tartrate 50 mg 09/25/20 09:00 09/30/20 09:43 Metoprolol Tartrate 50 Mg Tablet PO 50 mg DAILY TORRIE Administration Ondansetron HCl 4 mg 09/25/20 04:26 09/26/20 23:52 Ondansetron 2 Mg/Ml Sdv 2 Ml IVP 4 mg Q8H PRN Administration vomiting, or N/V if npo Senna/Docusate Sodium 1 tab 09/25/20 12:46 09/28/20 09:39 Sennosides-Docusate Tablet PO 1 tab DAILY PRN Administration Constipation Tamsulosin HCl 0.4 mg 09/25/20 09:00 09/30/20 09:43 Tamsulosin 0.4 Mg Capsule PO 0.4 mg DAILY TORRIE Administration PFSH Acute PFSH: Medical History BPH loc w urin obs/LUTS Closed right femoral fracture Fall Fracture of right ankle, lateral malleolus History of bladder stone Postprocedural urethral stricture On [facility] program with good patency maintenance Supracondylar fracture of right femur Urolithiasis Surgical History History of orchiectomy History of transurethral resection of prostate Family History Mother , AT AGE 69 Stroke Father , IN HIS 60-70'S Prostate cancer Social History Smoking and tobacco status: former smoker Alcohol intake: never Adopted: No Caregiver/support person: No Lives independently: No Household members: spouse Marital status: Current occupational status: retired History of recent travel: No Current gender identity: Male Dietary Habits: Current diet type/program: regular During the past year weight has: remained stable Vitals/I&O/Wt Last Vital Signs Temp 98.1 F 09/30/20 12:00 Pulse 81 09/30/20 12:00 Resp 20 H 09/30/20 12:00 BP 137/75 09/30/20 12:00 Pulse Ox 94 09/30/20 12:00 09/30/20 09/30/20 09/30/20 06:59 14:59 22:59 Intake Total 50 / 170 490 / 490 Output Total 300 / 600 150 / 150 Balance -250 / -430 340 / 340 Physical Exam Const: COMMON NORMALS: no acute distress, average body habitus, patient oriented x3 and alert GENERAL APPEARANCE: cooperative and comfortable ORIENTATION/CONSCIOUSNESS: Yes awake HENMT: COMMON NORMALS: normocephalic and atraumatic HEAD & SCALP: normocephalic and atraumatic Eye: GENERAL EYE: appearance normal, both eyes and all related structures Chest: COMMONS NORMALS: normal inspection of the chest Resp: COMMON NORMALS: normal respiratory effort EFFORT & INSPECTION: Yes able to speak in complete sentences and Yes symmetric chest movement Extremity: NARRATIVE EXTREMITY EXAM: Patient complains of bilateral lower extremity pain. Primarily, he focuses on his left knee. There is minimal discomfort to range of motion of the hip RIGHT LOWER EXTREMITY: Yes knee joint (Patient complains of pain in the knee with range of motion) Right knee: Yes inspection (There is no palpable effusion and no erythema or ecchymosis) and Yes palpation (Medial pain) and Yes lower leg (Tenderness to palpation in the calf consistent with DVT) LEFT LOWER EXTREMITY: Yes upper leg (Incision is well-healed from the patient's previous open reduction internal) and Yes knee joint Neuro: COMMON NORMALS: patient oriented x3 SENSORIUM/ORIENTATION: Yes alert Psych: COMMON NORMALS: mental status grossly normal APPEARANCE: Yes grossly normal ATTITUDE: Yes calm and Yes engaged ATTENTION/CONCENTRATION: Yes attention grossly intact Skin: COMMON NORMALS: no rashes or lesions noted GENERAL SKIN EXAM: no rashes or lesions noted Data Micro: Micro: Microbiology 09/28/20 11:00 Urine Culture - Fi nal Urine,Clean Catch 09/24/20 21:24 Blood Culture - Fi nal Blood NO GROWTH AFTER 5 DAYS 09/24/20 21:42 Blood Culture - Fi nal Blood NO GROWTH AFTER 5 DAYS Imaging^: Xray Ortho: I personally reviewed and interpreted this imaging study as follows: My impression: I have reviewed the CT findings as well as left knee imaging. Images are negative for acute fracture or dislocation. CT scan does demonstrate some effusion but this is not palpable. Previous imaging of the patient's supracondylar femur fracture as well as imaging is post open reduction internal fixation are also reviewed. New images are ordered of the pelvis and left hip as well as the right femur. A&P Assessment and plan (1) Leg pain: Patient was evaluated including review of the patient's past history of right supracondylar femur fracture with open reduction internal fixation per Dr. Van in mid August. Additionally, the patient presents complaining of bilateral knee pain left greater than right. CT and x-ray of the left knee are negative for acute findings such as fracture or dislocation. Patient does have a history of gout and this may be the reason for his current level of pain. New imaging is ordered of the left hip and AP pelvis as well as of the right femur to assess the status of the patient's open reduction internal fixation. Neither knee demonstrates erythema or warmth consistent with gout or other acute finding. The patient, however, continues to complain of pain and this may indeed be gout related. To this end, I have spoken with the hospitalist team and recommended scheduled Celebrex if it is appropriate given the patient's renal function. Additionally, I have encouraged the patient to begin to work with physical therapy so that he can reach his goal of going home. He will likely need to return to the [facility] facility however. Status: Acute Qualifiers: Laterality: bilateral Qualified Code(s): M79.604 - Pain in right leg; M79.605 - Pain in left leg (2) Unable to ambulate: Status: Acute (3) DVT (deep venous thrombosis): Status: Acute Qualifiers: DVT location: lower extremity Affected thrombotic vein of extremity: unspecified lower extremity distal vein Chronicity: acute Laterality: bilateral Qualified Code(s): I82.4Z3 - Acute embolism and thrombosis of unspecified deep veins of distal lower extremity, bilateral Consult Attestations Medical Necessity Statement: Per hospitalist team, the patient is unable to ambulate. 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
--- NOTE | 2020-09-30 20:00 | PC.NURSE ---
Patient bedside report recieved with Suzy BRANTLEY. Patient alert and oriented to self. Patient pleasantly confused with no voiced concerns or pain at this time. Patient laying in bed with tv on. Will continue to monitor and assist as needed following [facility]
[2020-09-30] MEDS: cefTRIAXone 1,000 MG in sodium chloride 0.9% (plus) 50 ML 100 MG IV (22:23)
--- NOTE | 2020-09-30 23:30 | PM.PN ---
Subjective Subjective: Interval history: Earlier was having again on and off pain in his left knee. Pain in the left foot appears to have resolved. Denies back pain. Breathing comfortably. Denies chest pain. Vitals/I&O/Wt Last Vital Signs Temp 98.8 F 09/30/20 19:57 Pulse 85 09/30/20 19:57 Resp 19 H 09/30/20 19:57 BP 141/80 09/30/20 19:57 Pulse Ox 95 09/30/20 19:57 09/30/20 09/30/20 10/01/20 14:59 22:59 06:59 Intake Total 490 / 490 240 / 730 Output Total 150 / 150 Balance 340 / 340 240 / 580 Physical Exam Const: COMMON NORMALS: no acute distress and alert GENERAL APPEARANCE: cooperative, comfortable and frail appearing ORIENTATION/CONSCIOUSNESS: Yes awake HENMT: COMMON NORMALS: oropharynx normal Neck/C-Spine: COMMON NORMALS: no JVD Resp: COMMON NORMALS: normal respiratory effort and clear to auscultation bilaterally AUSCULTATION: clear to auscultation bilaterally Cardio: COMMON NORMALS: no JVD, regular rhythm, S1 normal heart sound present, S2 normal heart sound present and No murmurs present (Cardio) RHYTHM: regular rhythm HEART SOUNDS: S1 normal heart sound present and S2 normal heart sound present GI: COMMON NORMALS: Normal to inspection, nondistended, normoactive bowel sounds present, Soft to palpation and non-tender PALPATION: Yes Soft to palpation Extremity: COMMON NORMALS: no joint enlargement and no pedal edema OTHER: Right thigh wound appears clean, healing well. No knee swelling or erythema. No tenderness on palpation. No left foot pain today. No swelling or erythema. No erythema or notable swelling in the left knee. Painful passive knee flexion. Appears to tolerate left leg elevation, unable to assess internal, external rotation. Palpable strong pulses PT, DP. No edema. Neuro: COMMON NORMALS: moves all extremities SENSORIUM/ORIENTATION: Yes alert Skin: COMMON NORMALS: no rashes or lesions noted GENERAL SKIN EXAM: no rashes or lesions noted Data : 09/30/20 04:30 09/30/20 04:30 Micro: Microbiology 09/28/20 11:00 Urine Culture - Final Urine,Clean Catch 09/24/20 21:24 Blood Culture - Final Blood NO GROWTH AFTER 5 DAYS 09/24/20 21:42 Blood Culture - Final Blood NO GROWTH AFTER 5 DAYS A&P Assessment and plan (1) Leg pain: Persistent on and off severe left knee pain. Obtain CT scan. Appreciate orthopedics assessment. Discussed recommendations with family. They are agreeable to initiate Celebrex after discussion of risks, including kidney injury, gastritis/PAD, DM bleeding, RI, CVA, and other, and benefits. Continue famotidine. Discussed differential diagnosis, including lower probability of infection. Continue attempts to mobilize. Discussed additional follow-up with rheumatology after discharge. 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 After arterial Doppler studies, consider addition of compression therapy. With pain, need for antalgic repositioning, spinal stenosis, degenerative spine disease, fractures in the right lower extremity, bilateral VTE, all associated with pain, would benefit from hospital bed. Status: Acute Qualifiers: Laterality: bilateral Qualified Code(s): M79.604 - Pain in right leg; M79.605 - Pain in left leg (2) Fever: Continue anticoagulation for DVT and PE. Continue to biotics for possible pneumonia. Follow-up all cultures. Status: Acute (3) Pulmonary embolus, right: Hematuria improved. Microscopic hematuria. Monitor. Follow-up with urology. Echo with normal EF, mild AVR. Minimally thickened whilst. Trace to mild TVR. Mild PVR. Noted acute VTE in right popliteal and posterior tibial veins and left popliteal vein. Possible mass in the right kidney. Status: Acute (4) Bilateral pneumonia: Continue antibiotics for possible pneumonia. Continue anticoagulation for PE. Follow-up blood cultures. Continue antibiotic. Follow-up blood cultures. COVID-19 PCR -ve 09/25. Status: Acute (5) Renal mass, right: Concerning for malignancy. Asking him to follow-up with urology for consideration of timing and modality of reevaluation. Discussed with radiology, as well as with him. Unidentified mass, about 13-15 mm in size. Complex. Appears was obscured by bowel gas during prior ultrasound. Difficult to say if complex cyst, collapsed prior simple cyst, or possibly malignancy. Does not have appearance of septic embolus. Blood cultures repeatedly negative. Status: Acute (6) Dehydration: Encourage oral intake Status: Acute (7) NSTEMI (non-ST elevated myocardial infarction): Chest pain-free. Type II NSTEMI, likely secondary to pulmonary emboli, bilateral pneumonia Status: Acute (8) Hyponatremia: Encourage p.o. intake. Monitor. Status: Acute (9) DVT (deep venous thrombosis): Continue anticoagulation. Consideration may need to be given to post VTE phlebitis. May benefit from compression therapy. Status: Acute Qualifiers: DVT location: lower extremity Affected thrombotic vein of extremity: unspecified lower extremity distal vein Chronicity: acute Laterality: bilateral Qualified Code(s): I82.4Z3 - Acute embolism and thrombosis of unspecified deep veins of distal lower extremity, bilateral (10) Poor appetite: Family will try to bring some of his favorite meals. Poor oral intake, occasionally dysphagia with food staying in the stomach long time. Sometimes even with vomiting, although I do not believe we have observed this in the hospital. Discussed with his , may benefit from additional assessment by gastric emptying study, barium swallow on outpatient basis. He also has particular food preferences, discussed with his that if she is able to bring some of the food that he prefers he may enjoy it better. Requesting for additional fruit be added to his meals hospital. Add protein shakes. Status: Acute Additional A&P Information Deconditioning: Absolutely declined consideration of shelter facility placement. Continue physical therapy. His family is making arrangements for additional support for his to care for him at home who has a bad back, and is considered about being able to care for him by herself. If does not change his mind about going to rehab, would at least benefit from home health. Attestations Medical Necessity Statement*: Continue admission for assessment management of severe pain of left knee, limiting mobilization and progression to rehabilitation, continue treatment of bilateral VTE, PE, with associated hematuria, treatment of pneumonia, progressive functional decline. 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
[2020-10-01] VITALS (12 sets, daily range): BP systolic 98–149; BP diastolic 64–93; PULSE 77–101; RESP 17–25; TEMP 36.5–37.4; O2SAT 94–98
--- NOTE | 2020-10-01 01:30 | P.PN_ITS ---
Subjective Subjective: Interval history: Today, October 01, he reports he is feeling significantly better. Says he was been working with physical therapy. States that his appetite today was much better and he was eating well. He is sitting up in a chair. He is in a knee immobilizer for his right leg which is status post open reduction internal fixation. He notes his left knee feels better si nce beginning Celebrex. Vitals/I&O/Wt Last Vital Signs Temp 97.8 F 10/01/20 19:24 Pulse 78 10/01/20 22:00 Resp 17 10/01/20 20:01 BP 118/71 10/01/20 19:24 Pulse Ox 94 10/01/20 20:01 10/01/20 10/01/20 10/01/20 06:59 14:59 22:59 Intake Total 300 / 1030 240 / 240 210 / 450 Output Total 350 / 350 Balance 300 / 880 -110 / -110 210 / 100 Physical Exam Const: COMMON NORMALS: no acute distress, average body habitus, patient oriented x3 and alert GENERAL APPEARANCE: cooperative and comfortable ORIENTATION/CONSCIOUSNESS: Yes awake HENMT: COMMON NORMALS: normocephalic and atraumatic HEAD & SCALP: normocephalic and atraumatic Eye: GENERAL EYE: appearance normal, both eyes and all related structures Chest: COMMONS NORMALS: normal inspection of the chest Resp: COMMON NORMALS: normal respiratory effort EFFORT & INSPECTION: Yes able to speak in complete sentences and Yes symmetric chest movement Extremity: NARRATIVE EXTREMITY EXAM: Patient complains of bilateral lower extremity pain. Primarily, he focuses on his left knee. There is minimal discomfort to range of motion of the hip on the left. RIGHT LOWER EXTREMITY: Yes knee joint (Patient is in a knee immobilizer secondary to his ORIF per Dr. Van) LEFT LOWER EXTREMITY: Yes knee joint (Knee effusion is present, but is resolving.) Left knee: Yes neurovascular exam (Intact.) Neuro: COMMON NORMALS: patient oriented x3 SENSORIUM/ORIENTATION: Yes alert Psych: COMMON NORMALS: mental status grossly normal APPEARANCE: Yes grossly normal ATTITUDE: Yes calm and Yes engaged ATTENTION/CONCENTRATION: Yes attention grossly intact Skin: COMMON NORMALS: no rashes or lesions noted GENERAL SKIN EXAM: no rashes or lesions noted Data : 10/03/20 04:48 10/03/20 04:48 A&P Assessment and plan (1) Leg pain: Patient was seen approximately 1:30 today, October 01. He is sitting up in a chair with his daughter present. The patient was evaluated including review of the patient's past history of right supracondylar femur fracture with open reduction internal fixation per Dr. Van in mid August. Additionally, the patient presents complaining of bilateral knee pain left greater than right. Today, the patient has been started on Celebrex, and he notes his knee is improv ing. He is having difficulty ambulating with physical therapy secondary to his left knee pain and instability. I spoke with the physical therapist, and I have asked them to fit him with a hinged knee brace in hopes that this will give him more confidence in better stability and ambulating. This plan was discussed with Dr. Wells. The plan will be discharge to [facility] when appropriate per the medical service. 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
[2020-10-01] MEDS: CELEcoxib 200 mg Capsule PO ×3 (03:03→17:36)
[2020-10-01] MEDS: enoxaparin 80 mg/0.8 mL Syringe SUBCUT ×2 (03:03→15:47)
[2020-10-01 04:06] LABS: Basophils % 0.3 %; Eosinophils % 0.6 %; Lymphocytes # 0.6 10^3/uL (0.8-4.8); Lymphocytes % 9.1 %; Mean Corpuscular HGB Conc 32.1 g/dL (30.0-36.0); Mean Corpuscular Hemoglobin 27.4 pg (28.0-34.0); Mean Corpuscular Volume 85.1 fL (80-94); Mean Platelet Volume 9.7 fL (7.4-10.4); Monocytes # 0.7 10^3/uL (0.2-0.9); Monocytes % 10.7 %; Neutrophils # 5.07 10^3/uL (1.8-7.7); Neutrophils % 78.5 %; Nucleated Red Blood Cells % 0 %; Platelet Count 351 10^3/cmm (130-400); Red Blood Count 3.29 10^6/uL (4.1-5.3); White Blood Count 6.5 10^3/uL (4.0-10.0)
[2020-10-01] MEDS: azithromycin 500 MG in sodium chloride 0.9% 250 ML 250 MG IV (04:24)
[2020-10-01 04:46] LABS: Alanine Aminotransferase 13 U/L (0-41); Albumin Level 2.4 g/dL (3.5-5.2); Alkaline Phosphatase 82 IU/L (40-130); Anion Gap 14.7 (5-19); Aspartate Amino Transferase 18 U/L (0-40); Blood Urea Nitrogen 10 mg/dL (8-23); Calcium 8.7 mg/dL (8.5-10.5); Carbon Dioxide 24 mmol/L (22-29); Chloride 98 mmol/L (98-107); Glucose 113 mg/dL (65-115); Osmolality Calculated 276 mOsm/kg (285-295); Potassium 3.7 mmol/L (3.5-5.1); Sodium 133 mmol/L (136-145); Total Bilirubin 0.5 mg/dL (0.15-1.2); Total Protein 6.4 g/dL (6.6-8.7)
[2020-10-01] MEDS: famotidine 20 mg Tablet PO ×2 (08:14→17:35)
[2020-10-01] MEDS: tamsulosin 0.4 mg Capsule PO (08:14)
[2020-10-01] MEDS: metoprolol tartrate 50 mg Tablet PO (08:15)
--- NOTE | 2020-10-01 09:50 | ECG_ITS ---
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 Measurements Intervals [place] Rate: 109 P: -16 MO: 149 QRS: 26 QRSD: 134 T: 9 QT: 357 QTc: 481 Interpretive Statements SINUS TACHYCARDIA WITH OCCASIONAL SUPRAVENTRICULAR PREMATURE COMPLEXES RIGHT BUNDLE BRANCH BLOCK [120+ ms QRS DURATION, UPRIGHT V1, 40+ ms S IN I/aVL/V4/V5/V6] WARNING: DATA QUALITY MAY AFFECT INTERPRETATION Compared to ECG 09/25/2020 04:10:18 Sinus rhythm no longer present Indeterminate axis no longer present Electronically Signed On 10-02-2020 20:31:47 CDT by Heaven Trujillo M.D. [id number]
--- NOTE | 2020-10-01 09:53 | PC.NURSE ---
A FIB Patient noted to be in A fib since the evening of September [address] Wells notified. Patient anticoagulated with lovenox Q12H. Patient also noted to have inverted T waves since the a fib started. Per Dr. Wells, ordered EKG and troponin series. Will continue to monitor.
[2020-10-01 11:24] LABS: Troponin(5th) Baseline 16 ng/L (0-15)
--- NOTE | 2020-10-01 11:50 | ECG_ITS ---
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 Measurements Intervals [place] Rate: 114 P: -13 MA: 140 QRS: -33 QRSD: 130 T: 0 QT: 350 QTc: 483 Interpretive Statements SINUS TACHYCARDIA RIGHT BUNDLE BRANCH BLOCK Compared to ECG 10/01/2020 10:57:42 No significant change Electronically Signed On 10-03-2020 13:04:15 CDT by Heaven Trujillo M.D. [id number]
[2020-10-01 13:34] LABS: Troponin 5 2HR 17.37 ng/L (0-15); Troponin 5 2HR Delta 1.37 ABS# (0-10)
--- NOTE | 2020-10-01 14:40 | PC.NURSE ---
PATIENT CONVERTED TO NSR. HE APPEARS TO HAVE A BUNDLE BRANCH BLOCK PER EKG. DR. ESCOBEDO NOTIFIED OF THIS CHANGE. WILL CONTINUE TO MONITOR.
--- NOTE | 2020-10-01 15:47 | PC.NURSE ---
PATIENT NOTED TO BE MORE CONFUSED THIS AFTERNOON. SAYING THINGS LIKE, WELL, GOOD MORNING, I DIDN'T KNOW YOU GIRLS WERE HERE! PATIENT WAS REORIENTED TO TIME AND PLACE. WILL CONTINUE TO MONITOR PATIENT.
--- NOTE | 2020-10-01 15:50 | ECG_ITS ---
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 Measurements Intervals [place] Rate: 72 P: 33 MN: 176 QRS: 49 QRSD: 138 T: 38 QT: 410 QTc: 449 Interpretive Statements SINUS RHYTHM WITH PAC'S RIGHT BUNDLE BRANCH BLOCK [120+ ms QRS DURATION, UPRIGHT V1, 40+ ms S IN I/aVL/V4/V5/V6] WARNING: DATA QUALITY MAY AFFECT INTERPRETATION Compared to ECG 10/01/2020 12:28:28 Right bundle-branch block now present Ventricular-paced complex(es) or rhythm no longer present Electronically Signed On 10-03-2020 13:03:30 CDT by Heaven Trujillo M.D. [id number]
[2020-10-01 18:01] LABS: Troponin 5 6HR 16.95 ng/L (0-15); Troponin 5 6HR Delta 0.95 ng/L (0-12)
--- NOTE | 2020-10-01 19:35 | PC.NURSE ---
Bedside report recieved with handoff with Suzy. Patient had episode of Afib earlier today while up in chair. New brace fitted for Left Knee. Patient took 3 steps today with therapy. Up to chair for several hours. Patient only has minimal voiding per shift from 350-450 per shift. Patient alert to self and pleasantly confused. Will continue to monitor and assist as needed following CPOC.
--- NOTE | 2020-10-01 22:20 | P.PN_ITS ---
Subjective Subjective: Interval history: Today he reports he is feeling significantly better. Says he was been working with physical therapy. States that his appetite today was much better and he was eating well. Vitals/I&O/Wt Last Vital Signs Temp 97.8 F 10/01/20 19:24 Pulse 81 10/01/20 20:01 Resp 17 10/01/20 20:01 BP 118/71 10/01/20 19:24 Pulse Ox 94 10/01/20 20:01 10/01/20 10/01/20 10/01/20 06:59 14:59 22:59 Intake Total 300 / 1030 240 / 240 60 / 300 Output Total 350 / 350 Balance 300 / 880 -110 / -110 60 / -50 Physical Exam Const: COMMON NORMALS: no acute distress and alert GENERAL APPEARANCE: cooperative, comfortable and frail appearing ORIENTATION/CONSCIOUSNESS: Yes awake HENMT: COMMON NORMALS: oropharynx normal Neck/C-Spine: COMMON NORMALS: no JVD Resp: COMMON NORMALS: normal respiratory effort and clear to auscultation bilaterally AUSCULTATION: clear to auscultation bilaterally Cardio: COMMON NORMALS: no JVD, regular rhythm, S1 normal heart sound present, S2 normal heart sound present and No murmurs present (Cardio) RHYTHM: regular rhythm HEART SOUNDS: S1 normal heart sound present and S2 normal heart sound present GI: COMMON NORMALS: Normal to inspection, nondistended, normoactive bowel sounds present, Soft to palpation and non-tender PALPATION: Yes Soft to palpation Extremity: COMMON NORMALS: no joint enlargement and no pedal edema OTHER: Right thigh wound appears clean, healing well. No knee swelling or erythema. No tenderness on palpation. No left foot pain today. No swelling or erythema. No erythema or notable swelling in the left knee. There is improved passive knee flexion to about 25 degrees. Appears to tolerate left leg elevation, unable to assess internal, external rotation. Palpable strong pulses PT, DP. No edema. Neuro: COMMON NORMALS: moves all extremities SENSORIUM/ORIENTATION: Yes alert Skin: COMMON NORMALS: no rashes or lesions noted GENERAL SKIN EXAM: no rashes or lesions noted Data : 10/01/20 03:43 10/01/20 03:43 A&P Assessment and plan (1) Leg pain: Today he actually reports improvement in symptoms. States was trying to work with PT and says was even able to bear weight. Appears was fitted with a brace. He does have improved passive range of flexion in the left knee today. Reports his appetite is better today as well. Continue Celebrex. Discussed again risks and monitoring. Consider DC as soon as showing sufficient improvement. Continue attempts to mobilize. Discussed additional follow-up with rheumatology after discharge. 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 After arterial Doppler studies, consider addition of compression therapy. With pain, need for antalgic repositioning, spinal stenosis, degenerative spine disease, fractures in the right lower extremity, bilateral VTE, all associated with pain, would benefit from hospital bed. Status: Acute Qualifiers: Laterality: bilateral Qualified Code(s): M79.604 - Pain in right leg; M79.605 - Pain in left leg (2) Fever: This now so far appears to have resolved. If remains afebrile, and otherwise improving, may be will discharge home per her preference to continue therapy. Continue anticoagulation for DVT and PE. If remains afebrile de-escalate antibiotics. Status: Acute (3) Pulmonary embolus, right: Prior to discharge switch over to oral therapy. Hematuria improved. Microscopic hematuria. Monitor. Follow-up with urology. Echo with normal EF, mild AVR. Minimally thickened whilst. Trace to mild TVR. Mild PVR. Noted acute VTE in right popliteal and posterior tibial veins and left popliteal vein. Possible mass in the right kidney. Status: Acute (4) Bilateral pneumonia: Oxygenation improving. Fever appears to be resolving. If continues to improve, de-escalate antibiotic. Blood cultures preliminarily negative. COVID-19 PCR -ve 09/25. Status: Acute (5) Renal mass, right: Concerning for malignancy. Asking him to follow-up with urology for consideration of timing and modality of reevaluation. Discussed with radiology, as well as with him. Unidentified mass, about 13-15 mm in size. Complex. Appears was obscured by bowel gas during prior ultrasound. Difficult to say if complex cyst, collapsed prior simple cyst, or possibly malignancy. Does not have appearance of septic embolus. Blood cultures repeatedly negative. Status: Acute (6) Dehydration: Encourage oral intake Status: Acute (7) NSTEMI (non-ST elevated myocardial infarction): Chest pain-free. Type II NSTEMI, likely secondary to pulmonary emboli, bilateral pneumonia Status: Acute (8) Hyponatremia: Encourage p.o. intake. Monitor. Status: Acute (9) DVT (deep venous thrombosis): Continue anticoagulation. Consideration may need to be given to post VTE phlebitis. Arterial Doppler studies are good. May benefit from compression therapy depending on symptoms. Status: Acute Qualifiers: DVT location: lower extremity Affected thrombotic vein of extremity: unspecified lower extremity distal vein Chronicity: acute Laterality: bilateral Qualified Code(s): I82.4Z3 - Acute embolism and thrombosis of unspecified deep veins of distal lower extremity, bilateral (10) Poor appetite: Reports today his appetite was better. Continue to encourage oral intake. Protein shakes. Status: Acute Additional A&P Information Deconditioning: Continue attempts at mobilization. Bracing of left knee as needed. Currently on Celebrex, DC as soon as show sufficient improvement. Monitor renal function, hemoglobin, cardiovascular symptoms. Absolutely declined consideration of long term facility placement. Continue physical therapy. His family is making arrangements for additional support for his to care for him at home who has a bad back, and is considered about being able to care for him by herself. If does not change his mind about going to rehab, would at least benefit from home health. Heart rhythm appears irregular, but P waves present on the monitor. Not in atrial fibrillation. Attestations Medical Necessity Statement*: Continue admission for assessment management of fever, pneumonia, PE, hypoxia, severe left knee pain, functional decline. 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
[2020-10-01] MEDS: cefTRIAXone 1,000 MG in sodium chloride 0.9% (plus) 50 ML 100 MG IV (23:19)
[2020-10-02] VITALS (10 sets, daily range): BP systolic 112–147; BP diastolic 72–92; PULSE 74–105; RESP 17–30; TEMP 36.6–37.4; O2SAT 91–96
[2020-10-02 04:44] LABS: Basophils % 0.5 %; Eosinophils # 0.1 10^3/uL (0.0-0.8); Eosinophils % 1.3 %; Hematocrit 29.9 % (42.0-52.0); Hemoglobin 9.3 g/dL (11.7-16.6); Lymphocytes # 0.7 10^3/uL (0.8-4.8); Lymphocytes % 11.2 %; Mean Corpuscular HGB Conc 31.1 g/dL (30.0-36.0); Mean Corpuscular Hemoglobin 26.5 pg (28.0-34.0); Mean Corpuscular Volume 85.2 fL (80-94); Mean Platelet Volume 9.9 fL (7.4-10.4); Monocytes # 0.6 10^3/uL (0.2-0.9); Monocytes % 9.9 %; Neutrophils % 76.1 %; Nucleated Red Blood Cells % 0 %; Platelet Count 398 10^3/cmm (130-400); Red Blood Count 3.51 10^6/uL (4.1-5.3); Red Cell Distribution Width 13.3 % (12.1-15.1); White Blood Count 6.1 10^3/uL (4.0-10.0)
[2020-10-02 05:10] LABS: Alanine Aminotransferase 20 U/L (0-41); Albumin Level 2.6 g/dL (3.5-5.2); Alkaline Phosphatase 81 IU/L (40-130); Anion Gap 12.7 (5-19); Aspartate Amino Transferase 26 U/L (0-40); Blood Urea Nitrogen 14 mg/dL (8-23); Calcium 8.5 mg/dL (8.5-10.5); Carbon Dioxide 25 mmol/L (22-29); Chloride 102 mmol/L (98-107); Globulin 3.7 g/dL (1.3-4.6); Glucose 109 mg/dL (65-115); Osmolality Calculated 283 mOsm/kg (285-295); Potassium 3.7 mmol/L (3.5-5.1); Sodium 136 mmol/L (136-145); Total Bilirubin 0.3 mg/dL (0.15-1.2); Total Protein 6.3 g/dL (6.6-8.7)
[2020-10-02] MEDS: enoxaparin 80 mg/0.8 mL Syringe SUBCUT ×2 (05:13→15:04)
[2020-10-02] MEDS: azithromycin 500 MG in sodium chloride 0.9% 250 ML 250 MG IV (05:14)
--- NOTE | 2020-10-02 09:39 | PC.NURSE ---
SPOUSE QUESTION RE: FAMILY VISITATION Patient asked this nurse to speak with his on his personal cell phone while I was in his room. Spouse Patti, asked if patient was well enough to be put in a wheel chair and be taken out to meet with his family( daughter/ grandchildren). Informed that it was not likely but that I would find out for her from the patients nurse, Suzy Manriquez rn. Spoke with Suzy and was informed that this was not possible at all. Called the spouse Patti and informed of what I was told.
[2020-10-02] MEDS: famotidine 20 mg Tablet PO ×2 (09:41→17:38)
[2020-10-02] MEDS: tamsulosin 0.4 mg Capsule PO (09:41)
[2020-10-02] MEDS: metoprolol tartrate 50 mg Tablet PO (09:41)
[2020-10-02] MEDS: CELEcoxib 200 mg Capsule PO ×2 (09:41→17:38)
--- NOTE | 2020-10-02 10:48 | PC.SOCIAL ---
*IMM UPDATE* Gave patient IMM update. Left copy of pg 2 in room. Initialed, dated, timed and placed in chart.
--- NOTE | 2020-10-02 20:13 | PC.NURSE ---
Patient laying in bed with eyes closed recieved bedside report from Suzy BRANTLEY. Patient alert to self with some confusion noted this morning by daysnjft nurse. Patient voicing no pain or concerns at this time. Will continue to monitor and assist as needed following CPOC
--- NOTE | 2020-10-02 20:39 | P.PN_ITS ---
Subjective Subjective: Interval history: Reports he is continuing to improve. Granddaughter at bedside, states he had worked much better with physical therapy. He can now raise his legs, bend his knees to about 30 degrees even on his own, which is much better than before. Reports his appetite is improving as well. Vitals/I&O/Wt Last Vital Signs Temp 98.0 F 10/02/20 15:21 Pulse 88 10/02/20 19:23 Resp 17 10/02/20 19:23 BP 139/80 10/02/20 15:21 Pulse Ox 93 10/02/20 19:23 10/02/20 10/02/20 10/02/20 06:59 14:59 22:59 Intake Total 300 / 750 360 / 360 120 / 480 Output Total 225 / 575 300 / 300 300 / 600 Balance 75 / 175 60 / 60 -180 / -120 Physical Exam Const: COMMON NORMALS: no acute distress and alert GENERAL APPEARANCE: cooperative, comfortable and frail appearing ORIENTATION/CONSCIOUSNESS: Yes awake OTHER: Appears more energetic. In good spirits. HENMT: COMMON NORMALS: oropharynx normal Neck/C-Spine: COMMON NORMALS: no JVD Resp: COMMON NORMALS: normal respiratory effort and clear to auscultation bilaterally AUSCULTATION: clear to auscultation bilaterally Cardio: COMMON NORMALS: no JVD, regular rhythm, S1 normal heart sound present, S2 normal heart sound present and No murmurs present (Cardio) RHYTHM: regular rhythm HEART SOUNDS: S1 normal heart sound present and S2 normal heart sound present GI: COMMON NORMALS: Normal to inspection, nondistended, normoactive bowel sounds present, Soft to palpation and non-tender PALPATION: Yes Soft to palpation Extremity: COMMON NORMALS: no joint enlargement and no pedal edema OTHER: Right thigh wound appears clean, healing well. No knee swelling or erythema. No tenderness on palpation. No left foot pain today. No swelling or erythema. No erythema or notable swelling in the left knee. Improvement in pain, now he lifts his legs, bends knees to about 30 degrees on his own. Palpable strong pulses PT, DP. No edema. Neuro: COMMON NORMALS: moves all extremities SENSORIUM/ORIENTATION: Yes alert Skin: COMMON NORMALS: no rashes or lesions noted GENERAL SKIN EXAM: no rashes or lesions noted Data : 10/02/20 04:13 10/02/20 04:13 A&P Assessment and plan (1) Leg pain: Symptoms continue to improve. Concern has been regarding mobilization returning home, as he is requiring 2 person assist to stand up. Unable to ambulate very far at all. This is improving. For now, will order also chairlift. Since he is improving discussed with family if continues to do well, potentially could plan for discharge tomorrow if no other issues. Discussed again recommendation to discharge to [facility] facility, however, he much prefers not to, possibly a swing bed will discuss, but since there is not one available here he would not want to travel in or out of town. States that he is very well set up at home, and there is a number of family members now in town able to help out with his care. Continue to mobilize with physical therapy, with immobilizer on the right, knee brace on the left. Continue Celebrex. Consider DC as soon as showing sufficient improvement. Continue to encourage oral intake. Discussed additional follow-up with rheumatology after discharge. 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 A Consider compression therapy in case of signs of venous insufficiency. With pain, need for antalgic repositioning, spinal stenosis, degenerative spine disease, fractures in the right lower extremity, bilateral VTE, all associated with pain, would benefit from hospital bed. Status: Acute Qualifiers: Laterality: bilateral Qualified Code(s): M79.604 - Pain in right leg; M79.605 - Pain in left leg (2) Fever: This now so far appears to have resolved. If remains afebrile, and otherwise improving, may able to discharge home per her preference to continue therapy. Continue anticoagulation for DVT and PE. If remains afebrile de-escalate antibiotics. Completed course of ceftriaxone and azithromycin for pneumonia. Will discontinue. Monitor. Status: Acute (3) Pulmonary embolus, right: Today we discussed different anticoagulation options with him his granddaughter, including risks and benefits of warfarin versus DOAC's. They prefer a DOAC, as opposed to warfarin due to concern that he may have difficult time staying in therapeutic range. They are agreeable to start Eliquis with the next dose instead of Lovenox. Hematuria improved. Microscopic hematuria. Monitor. Possible mass in the right kidney. Follow-up with urology for both. Echo with normal EF, mild AVR. Minimally thickened whilst. Trace to mild TVR. Mild PVR. Noted acute VTE in right popliteal and posterior tibial veins and left popliteal vein. Status: Acute (4) Bilateral pneumonia: Oxygenation improving. Fever appears to be resolved. Home oxygen evaluation tomorrow. Completed a week of ceftriaxone azithromycin. Discontinue antibiotic. Blood cultures preliminarily negative. COVID-19 PCR -ve 09/25. Status: Acute (5) Renal mass, right: Concerning for malignancy. Asking him to follow-up with urology for consideration of timing and modality of reevaluation. Discussed with his granddaughter. Both agreeable with plan. Discussed with radiology, as well as with him. Unidentified mass, about 13-15 mm in size. Complex. Appears was obscured by bowel gas during prior ultrasound. Difficult to say if complex cyst, collapsed prior simple cyst, or possibly malignancy. Does not have appearance of septic embolus. Blood cultures repeatedly negative. Status: Acute (6) Dehydration: Encourage oral intake Status: Acute (7) NSTEMI (non-ST elevated myocardial infarction): Chest pain-free. Type II NSTEMI, likely secondary to pulmonary emboli, bilateral pneumonia Status: Acute (8) Hyponatremia: Encourage p.o. intake. Monitor. Status: Acute (9) DVT (deep venous thrombosis): Transition to oral anticoagulation. Consideration may need to be given to post VTE phlebitis. Arterial Doppler studies are good. Consider compression therapy depending on symptoms. Status: Acute Qualifiers: DVT location: lower extremity Affected thrombotic vein of extremity: unspecified lower extremity distal vein Chronicity: acute Laterality: bilateral Qualified Code(s): I82.4Z3 - Acute embolism and thrombosis of unspecified deep veins of distal lower extremity, bilateral (10) Poor appetite: Reports his appetite was better. Continue to encourage oral intake. Prot ein shakes. Consider referral for gastric emptying study, barium swallow as reports slow transit. Status: Acute Additional A&P Information Deconditioning: Continue attempts at mobilization. Bracing of left knee as needed. Currently on Celebrex, DC as soon as show sufficient improvement. Monitor renal function, hemoglobin, cardiovascular symptoms. Absolutely declined consideration of [facility] facility placement. Continue physical therapy. His family is making arrangements for additional holder pport for his to care for him at home who has a bad back, and is considered about being able to care for him by herself. If does not change his mind about going to rehab, would at least benefit from home health. Heart rhythm appears irregular, but P waves present on the monitor. Not in atrial fibrillation. Attestations Medical Necessity Statement*: Continue admission for assessment management of severe left knee pain, functional decline, and difficulty with mobilization, bilateral PE, DVT, pneumonia, poor oral intake, possible renal mass. Discharge planning and arrangements. Coding Level of Care Code Acute Marzipan Molder for [facility] Fwd Diagnoses Leg pain M79.604; M79.605 Laterality: bilateral Fever R50.9 Pulmonary embolus, right I26.99 Bilateral pneumonia J18.9 Renal mass, right N28.89 Dehydration E86.0 NSTEMI (non-ST elevated myocardial infarction) I21.4 Hyponatremia E87.1 DVT (deep venous thrombosis) I82.4Z3 DVT location: lower extremity Affected thrombotic vein of extremity: unspecified lower extremity distal vein Chronicity: acute Laterality: bilateral Poor appetite R63.0
[2020-10-02] MEDS: acetaminophen 325 mg Tablet 650 MG PO (23:37)
[2020-10-03] VITALS (31 sets, daily range): BP systolic 129–153; BP diastolic 72–90; PULSE 71–97; RESP 10–36; TEMP 36.6–37.2; O2SAT 90–99
[2020-10-03 04:29] LABS: Glucose Point of Care 104 mg/dL (70-110)
[2020-10-03 05:30] LABS: Basophils # 0.1 10^3/uL (0.0-0.1); Basophils % 0.8 %; Eosinophils # 0.1 10^3/uL (0.0-0.8); Eosinophils % 1.3 %; Hemoglobin 9.4 g/dL (11.7-16.6); Lymphocytes # 0.7 10^3/uL (0.8-4.8); Lymphocytes % 11.1 %; Mean Corpuscular HGB Conc 30.3 g/dL (30.0-36.0); Mean Corpuscular Hemoglobin 26.6 pg (28.0-34.0); Mean Corpuscular Volume 87.6 fL (80-94); Monocytes # 0.6 10^3/uL (0.2-0.9); Monocytes % 9.3 %; Neutrophils # 4.63 10^3/uL (1.8-7.7); Neutrophils % 76.7 %; Nucleated Red Blood Cells % 0 %; Platelet Count 447 10^3/cmm (130-400); Red Blood Count 3.54 10^6/uL (4.1-5.3); Red Cell Distribution Width 13.2 % (12.1-15.1)
[2020-10-03 06:03] LABS: Alanine Aminotransferase 26 U/L (0-41); Albumin Level 2.7 g/dL (3.5-5.2); Alkaline Phosphatase 86 IU/L (40-130); Anion Gap 15.3 (5-19); Aspartate Amino Transferase 30 U/L (0-40); Blood Urea Nitrogen 12 mg/dL (8-23); Calcium 8.9 mg/dL (8.5-10.5); Carbon Dioxide 25 mmol/L (22-29); Chloride 104 mmol/L (98-107); Globulin 3.8 g/dL (1.3-4.6); Glucose 113 mg/dL (65-115); Osmolality Calculated 291 mOsm/kg (285-295); Potassium 4.3 mmol/L (3.5-5.1); Sodium 140 mmol/L (136-145); Total Bilirubin 0.5 mg/dL (0.15-1.2); Total Protein 6.5 g/dL (6.6-8.7)
--- NOTE | 2020-10-03 06:19 | PC.NURSE ---
Patient had episode of confusion this am was found standing at foot of bed after he hollered out for help. Patient redirected to bed with assist of staff. Patient was diaphoretic. VS 153/90 hr 80 R 17 T 97.7 orally, and SpO2 87 on room air. Patient blood glucose was 104. Patient was confused and asked where he was and how he got here. Patient reoriented and settled back in bed. Patient laying in bed with eyes closed at this time. No further voiced concerns at this time. Will continue to assist as needed and monitor for changes following CPOC
[2020-10-03] MEDS: apixaban 5 mg Tablet 10 MG PO ×2 (06:49→18:16)
--- NOTE | 2020-10-03 08:07 | PC.NURSE ---
Bedside report conducted with Maurice RN. Patient alert and oriented to self. Patient laying with eyes closed. Easily arousable and appropriate in responses. Patient antibiotics discontinued last night and eliquis started this am. Will continue to montior and assist patient as needed following CPOC
[2020-10-03] MEDS: CELEcoxib 200 mg Capsule PO ×2 (09:07→17:06)
[2020-10-03] MEDS: metoprolol tartrate 50 mg Tablet PO (09:08)
[2020-10-03] MEDS: famotidine 20 mg Tablet PO ×2 (09:08→17:06)
[2020-10-03] MEDS: tamsulosin 0.4 mg Capsule PO (09:08)
--- NOTE | 2020-10-03 09:57 | PC.CHAP ---
Pastoral Care Encounter/Spiritual Assessment Type of Contact [] Declined skein straightener visit [] Patient/Family/Request visit [] Outpatient visit [] Follow-up visit [] Physician referral [] Code/Alert [x] Routine visit [] Staff referral [] Actively dying [] Patient sleeping [] Family support [] [] Out of room [] Palliative care [] [] Receiving care in room [] Pre-surgical visit [] Trauma [] Long length of stay [] ICU visit [] Other: Relational/Emotional Strength [] Patient feels connected with others/family/visitors/staff [] Distress [] Loneliness/isolation [] Abandonment Spirituality of Patient [] Person of Adali [] Attends Latter Day of their Adali [] Believes in Prayer [] Reads Bible or Hindu materials [] There are Spiritual issues to be addressed Marine Equipment Design Engineer Interventions [x] Prayer [x] Active listening [x] Non-anxious presence [x] Spiritual/emotional support [] Crisis/trauma care [] Spiritual counseling [] Bereavement support [] Provided bereavement packet [] Provided Bible/devotional materials [] Provided toy/stuffed animal, coloring book to patient or family member [] Provided Communion [] Anointing/[place] [] Salvation [x] Completed spiritual assessment [] Other: Impact on Illness or Injury [] Angry [] Fearful [] Anxious [] Often cries [] Exhaustion [] Unable to work [] Unable to attend buddhism [] Unable to walk/stand [] Unable to read [] Unable to drive [] Unable to eat/drink [] Unable to sleep [] Unable to be with family [] Patient intubated [] Other: Summary patient loved his food and care.. some confusion regarding issues with his health Time spent with patient 15 min
--- NOTE | 2020-10-03 13:55 | P.PN_ITS ---
Subjective Subjective: Interval history: Patient was examined this morning, he tells me that he is feeling better, he was able to work with physical therapy better yesterday, still reporting weakness and fatigue, no fevers, no chills, no cough, some degree of shortness of breath with exertion, he feels that he is doing better, he really wants to go home to his , does not want to go to a assisted Vitals/I&O/Wt Last Vital Signs Temp 98.9 F 10/03/20 13:40 Pulse 71 10/03/20 13:40 Resp 20 H 10/03/20 13:40 BP 129/84 10/03/20 13:40 Pulse Ox 95 10/03/20 13:40 10/02/20 10/03/20 10/03/20 22:59 06:59 14:59 Intake Total 360 / 720 100 / 820 200 / 200 Output Total 500 / 800 300 / 1100 180 / 180 Balance -140 / -80 -200 / -280 20 / 20 Physical Exam Const: COMMON NORMALS: no acute distress and patient oriented x3 HENMT: COMMON NORMALS: normocephalic HEAD & SCALP: normocephalic Neck/C-Spine: COMMON NORMALS: no JVD Resp: COMMON NORMALS: normal respiratory effort, No retractions, No use of accessory muscles and clear to auscultation bilaterally AUSCULTATION: clear to auscultation bilaterally Cardio: COMMON NORMALS: no JVD, regular rate, regular rhythm, S1 normal heart sound present and S2 normal heart sound present RATE: regular rate RHYTHM: regular rhythm HEART SOUNDS: S1 normal heart sound present and S2 normal heart sound present GI: COMMON NORMALS: Normal to inspection, nondistended, normoactive bowel sounds present, Soft to palpation, non-tender, No hepatosplenomegaly present, no masses and no bruits PALPATION: Yes Soft to palpation and Yes No h epatosplenomegaly present Extremity: COMMON NORMALS: capillary refill normal, no clubbing, cyanosis or edema, no calf tenderness and no pedal edema Neuro: COMMON NORMALS: patient oriented x3 Psych: COMMON NORMALS: mental status grossly normal Data : 10/03/20 04:48 10/03/20 04:48 Micro: Microbiology 09/27/20 21:53 Blood Culture - Final Blood NO GROWTH AFTER 5 DAYS 09/27/20 21:50 Blood Culture - Final Blood NO GROWTH AFTER 5 DAYS A&P Assessment and plan (1) Leg pain: Symptoms continue to improve. Concern has been regarding mobilization returning home, as he is requiring 2 person assist to stand up. Unable to ambulate very far at all. This is improving, working more with physical therapy. For now, will order also chairlift. Since he is improving discussed w ith family if continues to do well, potentially could plan for discharge tomorrow if no other issues. Discussed again recommendation to discharge to custodial facility, however, he much prefers not to, possibly a swing bed will discuss, but since there is not one available here he would not want to travel in or out of town. States that he is very well set up at home, and there is a number of family members now in town able to help out with his care. Continue to mobilize with physical therapy, with immobilizer on the right, knee brace on the left. Continue Celebrex. Continue to encourage oral intake. Plan to discharge when patient has Binh lift, hospital bed ready, and has increased mobility with physical therapy Discussed additional follow-up with rheumatology after discharge. 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 A Consider compression therapy in case of signs of venous insufficiency. With pain, need for antalgic repositioning, spinal stenosis, degenerative spine disease, fractures in the right lower extremity, bilateral VTE, all associated with pain, would benefit from hospital bed. Status: Acute Qualifiers: Laterality: bilateral Qualified Code(s): M79.604 - Pain in right leg; M79.605 - Pain in left leg (2) Fever: Resolved This now so far appears to have resolved. If remains afebrile, and otherwise improving, may able to discharge home per her preference to continue therapy. Continue anticoagulation for DVT and PE. If remains afebrile de-escalate antibiotics. Completed course of ceftriaxone and azithromycin for pneumonia. Status: Acute (3) Pulmonary embolus, right: Today we discussed different anticoagulation options with him his granddaughter, including risks and benefits of warfarin versus DOAC's. They prefer a DOAC, as opposed to warfarin due to concern that he may have difficult time staying in therapeutic range. They are agreeable to start Eliquis, continue Hematuria improved. Microscopic hematuria. Monitor. Possible mass in the right kidney. Follow-up with urology for both. Echo with normal EF, mild AVR. Minimally thickened whilst. Trace to mild TVR. Mild PVR. Noted acute VTE in right popliteal and posterior tibial veins and left popliteal vein. Status: Acute (4) Bilateral pneumonia: Oxygenation improving. Fever appears to be resolved. Home oxygen evaluation tomorrow. Completed a week of ceftriaxone azithromycin. Discontinue antibiotic. Blood cultures negative COVID-19 PCR -ve 09/25. Status: Acute (5) Renal mass, right: Concerning for malignancy. Asking him to follow-up with urology for consideration of timing and modality of reevaluation. Discussed with his granddaughter. Both agreeable with plan. Discussed with radiology, as well as with him. Unidentified mass, about 13-15 mm in size. Complex. Appears was obscured by bowel gas during prior ultrasound. Difficult to say if complex cyst, collapsed prior simple cyst, or possibly malignancy. Does not have appearance of septic embolus. Blood culture s repeatedly negative. Status: Acute (6) Dehydration: Encourage oral intake Status: Acute (7) NSTEMI (non-ST elevated myocardial infarction): Chest pain-free. Type II NSTEMI, likely secondary to pulmonary emboli, bilateral pneumonia Status: Acute (8) Hyponatremia: Encourage p.o. intake. Monitor. Status: Acute (9) DVT (deep venous thrombosis): On Eliquis Consideration may need to be given to post VTE phlebitis. Arterial Doppler studies are good. Consider compression therapy depending on symptoms. Status: Acute Qualifiers: DVT location: lower extremity Affected thrombotic vein of extremity: unspecified lower extremity distal vein Chronicity: acute Laterality: bilateral Qualified Code(s): I82.4Z3 - Acute embolism and thrombosis of unspecified deep veins of distal lower extremity, bilateral (10) Poor appetite: Reports his appetite was better. Continue to encourage oral intake. Protein shakes. Consider referral for gastric emptying study, barium swallow as reports slow transit. Status: Acute Additional A&P Information Deconditioning: Continue attempts at mobilization. Bracing of left knee as needed. Currently on Celebrex, DC as soon as show sufficient improvement. Mon itor renal function, hemoglobin, cardiovascular symptoms. Absolutely declined consideration of custodial facility placement. Continue physical therapy. His family is making arrangements for additional support for his to care for him at home who has a bad back, and is considered about being able to care for him by herself. If does not change his mind about going to rehab, would at least benefit from home health. Heart rhythm appears irregular, but P waves present on the monitor. Not in atrial fibrillation. Plan for today, continue physical therapy, continue anticoagulation, likely discharge in the next 24 hours with home health care, Binh lift, hospital bed should be set up Attestations Medical Necessity Statement*: Patient requires hospitalization secondary to DVT, PE, pneumonia, deconditioning, Coding Level of Care Code Acute Coat Padder for g Fwd Diagnoses Leg pain M79.604; M79.605 Laterality: bilateral Fever R50.9 Pulmonary embolus, right I26.99 Bilateral pneumonia J18.9 Renal mass, right N28.89 Dehydration E86.0 NSTEMI (non-ST elevated myocardial infarction) I21.4 Hyponatremia E87.1 DVT (deep venous thrombosis) I82.4Z3 DVT location: lower extremity Affected thrombotic vein of extremity: unspecified lower extremity distal vein Chronicity: acute Laterality: bilateral Poor appetite R63.0
[2020-10-03] MEDS: acetaminophen 325 mg Tablet 650 MG PO (23:10)
--- NOTE | 2020-10-03 23:35 | PC.NURSE ---
Patient is alert and oriented x4 at this time. Patient is known to be confused at times from report from previous nurses. Bed alarm is set and call light is within reach. Patient has been educated not to get up without assistance and verbalized understanding.
[2020-10-04] VITALS (7 sets, daily range): BP systolic 128–154; BP diastolic 72–81; PULSE 75–85; RESP 17–19; TEMP 36.6–37.3; O2SAT 93–97
[2020-10-04 04:54] LABS: Basophils # 0.1 10^3/uL (0.0-0.1); Basophils % 0.9 %; Eosinophils # 0.1 10^3/uL (0.0-0.8); Eosinophils % 1.3 %; Hematocrit 30.5 % (42.0-52.0); Hemoglobin 9.4 g/dL (11.7-16.6); Lymphocytes # 0.8 10^3/uL (0.8-4.8); Lymphocytes % 12.3 %; Mean Corpuscular HGB Conc 30.8 g/dL (30.0-36.0); Mean Corpuscular Hemoglobin 26.8 pg (28.0-34.0); Mean Corpuscular Volume 86.9 fL (80-94); Mean Platelet Volume 9.5 fL (7.4-10.4); Monocytes # 0.7 10^3/uL (0.2-0.9); Monocytes % 10.3 %; Neutrophils # 5.01 10^3/uL (1.8-7.7); Nucleated Red Blood Cells % 0 %; Platelet Count 460 10^3/cmm (130-400); Red Blood Count 3.51 10^6/uL (4.1-5.3); Red Cell Distribution Width 13.4 % (12.1-15.1); White Blood Count 6.8 10^3/uL (4.0-10.0)
[2020-10-04] MEDS: apixaban 5 mg Tablet 10 MG PO (04:54)
[2020-10-04 05:12] LABS: Magnesium 2.1 mg/dL (1.7-2.3)
[2020-10-04 05:15] LABS: Alanine Aminotransferase 30 U/L (0-41); Albumin Level 2.6 g/dL (3.5-5.2); Alkaline Phosphatase 91 IU/L (40-130); Aspartate Amino Transferase 33 U/L (0-40); Blood Urea Nitrogen 9 mg/dL (8-23); Calcium 8.2 mg/dL (8.5-10.5); Carbon Dioxide 25 mmol/L (22-29); Chloride 103 mmol/L (98-107); Globulin 3.8 g/dL (1.3-4.6); Glucose 94 mg/dL (65-115); Osmolality Calculated 280 mOsm/kg (285-295); Sodium 136 mmol/L (136-145); Total Bilirubin 0.3 mg/dL (0.15-1.2); Total Protein 6.4 g/dL (6.6-8.7)
--- NOTE | 2020-10-04 07:25 | PC.NURSE ---
Pt lying in bed talking to staff. Pt A&OX3, Pt resp even and non-labored no distress noted. Pt had no c/o pain or discomfort at the present time. No needs voiced. Call light in reach. Will cont to monitor.
[2020-10-04] MEDS: CELEcoxib 200 mg Capsule PO (08:41)
[2020-10-04] MEDS: metoprolol tartrate 50 mg Tablet PO (08:41)
[2020-10-04] MEDS: famotidine 20 mg Tablet PO (08:41)
[2020-10-04] MEDS: tamsulosin 0.4 mg Capsule PO (08:41)
--- NOTE | 2020-10-04 10:28 | PC.CHAP ---
Pastoral Care Encounter/Spiritual Assessment Type of Contact [] Declined olive grower visit [] Patient/Family/Request visit [] Outpatient visit [] Follow-up visit [] Physician referral [] Code/Alert [x] Routine visit [] Staff referral [] Actively dying [] Patient sleeping [] Family support [] [] Out of room [] Palliative care [] [] Receiving care in room [] Pre-surgical visit [] Trauma [] Long length of stay [] ICU visit [] Other: Relational/Emotional Strength [] Patient feels connected with others/family/visitors/staff [] Distress [] Loneliness/isolation [] Abandonment Spirituality of Patient [x] Person of Adali [x] Attends Nondenominational of their Adali [x] Believes in Prayer [] Reads Bible or Amish materials [] There are Spiritual issues to be addressed Senior Principal Process Engineer Interventions [x] Prayer [x] Active listening [x] Non-anxious presence [x] Spiritual/emotional support [] Crisis/trauma care [] Spiritual counseling [] Bereavement support [] Provided bereavement packet [] Provided Bible/devotional materials [] Provided toy/stuffed animal, coloring book to patient or family member [] Provided Communion [] Anointing/[place] [] Salvation [x] Completed spiritual assessment [] Other: Impact on Illness or Injury [] Angry [] Fearful [] Anxious [] Often cries [] Exhaustion [] Unable to work [] Unable to attend yarsani [] Unable to walk/stand [] Unable to read [] Unable to drive [] Unable to eat/drink [] Unable to sleep [] Unable to be with family [] Patient intubated [] Other: Summary preparing to return home. excited about feeling stronger[place] Time spent with patient 15 min
--- NOTE | 2020-10-04 10:49 | DCPLANNER ---
IMM completed 10/04/20 @ 0905. Talked with pt's , Patti over the phone and she stated she understood the rights.
--- NOTE | 2020-10-04 11:26 | P.DS_ITS ---
Discharge Providers Date of Admission: 09/25/20 04:26 Date of Discharge: October 04, 2020 Attending Provider at Admission: Ron Foote MD Attending Provider at Discharge: Ron Foote MD Primary Care Provider: Darci Frances DO Diagnoses at Discharge Discharge Diagnosis (1) Leg pain: Status: Acute Qualifiers: Laterality: bilateral Qualified Code(s): M79.604 - Pain in right leg; M79.605 - Pain in left leg (2) Fever: Status: Acute (3) Pulmonary embolus, right: Status: Acute (4) Bilateral pneumonia: Status: Acute (5) Renal mass, right: Status: Acute (6) Dehydration: Status: Acute (7) NSTEMI (non-ST elevated myocardial infarction): Status: Acute (8) Hyponatremia: Status: Acute (9) DVT (deep venous thrombosis): Status: Acute Qualifiers: DVT location: lower extremity Affected thrombotic vein of extremity: unspecified lower extremity distal vein Chronicity: acute Laterality: bilateral Qualified Code(s): I82.4Z3 - Acute embolism and thrombosis of unspecified deep veins of distal lower extremity, bilateral (10) Poor appetite: Status: Acute Reason for Visit Reason for Visit: WEAKNESS Hospital Course Hospital Course This is a 80-year-old male with a past medical history of kidney stones, bladder stones, BPH, urethral stricture, urolithiasis, status post open reduction internal fixation of right supracondylar fracture, status post nondisplaced oblique fracture of the distal fibula treated with ankle brace, recently a resident at [facility], but now at home, who presents to [facility] due to shortness of breath Patient was admitted to [facility] for shortness of breath secondary to right-sided pulmonary emboli, secondary to surgery and postoperative state, and bilateral pneumonia. Patient was admitted to general medical floors, received anticoagulant therapy, cardiac monitoring, antibiotic therapy, inhaler therapy, oxygen therapy, and clinically monitored. Patients clinical improvement was a slow process due to generalized fatigue, weakness, poor appetite. Patient eventually clinically improved, ambulating with physical therapy, declined half-way placement, discharged home with home health care, Binh lift, hospital bed. Discharged on Eliquis therapy for his pulmonary emboli. He finished antibiotic therapy for his pneumonia. Patient also was found to have DVT, discharged on Eliquis as above Patient was also incidentally found to have a right renal mass, patient will follow up with urology as outpatient for further evaluation. Patient also had a NSTEMI on hospital admission, likely secondary to pulmonary emboli, bilateral pneumonia, echocardiogram showed ejection fraction within normal limits. Patient also had leg pain during his hospital admission, likely secondary to postoperative state, history of fractures. He was seen by orthopedic service, treated with Celebrex, clinically improved, discharged on Celebrex as needed for pain. For Physical Exam Const: COMMON NORMALS: no acute distress and patient oriented x3 HENMT: COMMON NORMALS: normocephalic HEAD & SCALP: normocephalic Neck/C-Spine: COMMON NORMALS: no JVD Resp: COMMON NORMALS: normal respiratory effort, No retractions, No use of accessory muscles and clear to auscultation bilaterally AUSCULTATION: clear to auscultation bilaterally Cardio: COMMON NORMALS: no JVD, regular rate, regular rhythm, S1 normal heart sound present and S2 normal heart sound present RATE: regular rate RHYTHM: regular rhythm HEART SOUNDS: S1 normal heart sound present and S2 normal heart sound present GI: COMMON NORMALS: Normal to inspection, nondistended, normoactive bowel sounds present, Soft to palpation, non-tender, No hepatosplenomegaly present, no masses and no bruits PALPATION: Yes Soft to palpation and Yes No hepatosplenomegaly present Extremity: COMMON NORMALS: capillary refill normal, no clubbing, cyanosis or edema, no calf tenderness and no pedal edema Neuro: COMMON NORMALS: patient oriented x3 Psych: COMMON NORMALS: mental status grossly normal Discharge Data Data Completed and Pending: Completed Studies During Hospitalization Category Date Time Status CT angio chest w abd pel w con Stat Cat Scan 09/24/20 23:[address] knee LT wo con * [id number] Routine Cat Scan 09/29/20 21:[address] lumbar spine w o con* [id number] Routi ne Cat Scan 09/29/20 09:35 Completed CXRP [XR chest 1V portable [id number]] R outine Exams 09/28/20 07:59 Completed XR chest 1V claudia ble [id number] Urgent Exams 09/24/20 21:13 Completed XR femur RT min 2 V* [id number] Routine Exams 09/30/20 15:18 Completed XR foot LT min 3V * [id number] Routine Exams 09/29/20 10:23 Completed XR hip LT 2-3V wo /w pel* [id number] Rout ine Exams 09/29/20 09:35 Completed XR hip LT 2-3V wo /w pel* [id number] Rout ine Exams 09/30/20 15:18 Completed XR knee LT 3V* 73 562 Routine Exams 09/29/20 10:23 [place] [id number] Rout ine Ultrasound 09/28/20 15:47 Completed CV echo complete* 89021 Routine Ultrasound 09/25/20 04:26 [place] [id number] Routin e Ultrasound 09/25/20 04:26 Completed US renal BI* 7677 0 Routine Ultrasound 09/25/20 04:26 Completed US soft tissue/ex tremity 50658 Rout ine Ultrasound 09/29/20 10:24 Completed Pending at discharge Category Date Time Status CONNIE Screen w/ Ref tim Routine Lab 09/29/20 12:41 Results Magnesium AM LABS Lab 10/05/20 04:00 Ordered Magnesium AM LABS Lab 10/06/20 04:00 Ordered Phosphorus AM LAB S Lab 10/05/20 04:00 Ordered Phosphorus AM LAB S Lab 10/06/20 04:00 Ordered Sputum Culture an d Gram Stain Stat Lab 09/25/20 04:26 Uncollected Labs from last 24 hours 10/04/20 10/04/20 10/04/20 04:30 04:30 04:30 WBC 6.8 RBC 3.51 L Hgb 9.4 L Hct 30.5 L MCV 86.9 MCH 26.8 L MCHC 30.8 RDW 13.4 Plt Count 460 H MPV 9.5 Neut % (Auto) 74.0 Lymph % (Auto) 12.3 Bowman % (Auto) 10.3 Eos % (Auto) 1.3 Baso % (Auto) 0.9 Neut # (Auto) 5.01 Lymph # (Auto) 0.8 Bowman # (Auto) 0.7 Eos # (Auto) 0.1 Baso # (Auto) 0.1 Nucleated RBC % (a uto) 0 Nucleated RBCs # 0.0 Sodium 136 Potassium 4.0 Chloride 103 Carbon Dioxide 25 Anion Gap 12.0 BUN 9 Creatinine 0.8 GFR Calculation Not Reportable Glucose 94 Calculated Osmolal ity 280 L Calcium 8.2 L Phosphorus 3.0 Magnesium 2.1 Total Bilirubin 0.3 AST 33 ALT 30 Alkaline Phosphata se 91 Total Protein 6.4 L Albumin 2.6 L Globulin 3.8 Vitals: Last Vital Signs Temp 97.9 F 10/04/20 07:49 Pulse 79 10/04/20 07:49 Resp 17 10/04/20 07:49 BP 154/81 10/04/20 07:49 Pulse Ox 97 10/04/20 07:49 Discharge Plan Discharge Patient Disposition: Home Condition: Stable Prescriptions: New metoprolol tartrate 50 mg Tablet 50 mg PO DAILY 30 Days Qty: 30 RF: 0 Ventolin HFA 90 mcg/actuation Hfa Aerosol Inhaler 2 puff inhalation Q4H.RESPIRATORY PRN (Reason: Shortness Of Breath) Qty: 8.5 RF: 0 famotidine 20 mg Tablet 20 mg PO BID 30 Days Qty: 60 RF: 0 Eliquis DVT-PE Treat 30D Start 5 mg (74 tabs) tablets,dose pack See Rx Instructions .ROUTE .COMPLEX Qty: 74 RF: 0 celecoxib [Celebrex] 100 mg capsule 100 mg PO BID PRN (Reason: pain) 15 Days Qty: 30 RF: 0 Continued tamsulosin 0.4 mg capsule 0.4 mg PO DAILY Qty: 90 RF: 3 cyclobenzaprine 10 mg Tablet 10 mg PO TID PRN (Reason: Nausea) RF: 0 ondansetron HCl 4 mg tablet 4 mg PO Q8H RF: 0 Senna with Docusate Sodium 8.6-50 mg Tablet 1 tab-cap PO DAILY PRN (Reason: Constipation) RF: 0 Discontinued amoxicillin-pot clavulanate 875-125 mg tablet 1 tab PO BID RF: 0 metoprolol tartrate 25 mg Tablet 25 mg PO DAILY RF: 0 Discharge Orders: Discharge Order (Routine); Ordered 10/04/20 Ordered By: Ron Foote Other Ambulatory Orders: DME: Commode (Order) Location: None Selected Ordered By: Juan Wells DME: Hospital Bed (Order) Location: None Selected Ordered By: Juan Wells DME: Hospital Bed (Order) Location: None Selected Ordered By: Juan Wells DME: Miscellaneous (Order) Timeframe: 1 Day Location: None Selected Ordered By: Juan Wells Referrals: Manav Rodrigues MD [Physician] - 2 weeks (renal mass) Darci Frances DO [Primary Care Provider] - 4-7 days Yary Conteh MD [Physician] - 1 month (pulmonary embolus) Discharge Diet: Regular and Cardiac Discharge Activity: Resume usual activity and Increase activity as tolerated Patient Instructions: Metoprolol (By mouth), Famotidine (By mouth), Albuterol (By breathing), Celecoxib (By mouth), Apixaban (By mouth), Pulmonary Embolism (DC), Deep Venous Thrombosis (DC) Activity Restrictions/Additional Instructions: -If you have a fall, please come to the emergency room as you are on a blood thinner -Please follow-up with primary care provider in 1 week for recheck CBC -If you develop bloody or black stools, or lightheadedness go to the emergency room -If you have worsening shortness of breath please go to the emergency room -Please follow-up with your lung doctor in 1 month for your pulmonary emboli -For your right renal mass, please follow-up with Dr. Rodrigues -We have discharged you on Celebrex to be only used as needed for knee pain and joint pain, please be very careful as you are on a blood thinner, and adding Celebrex increases the risk of bleeding Discharge Attestations Time Spent in Discharge Care*: greater than 30 min Quality Metrics Clinical Quality Measures During this hospital stay, did patient experience: VTE Contraindication to Overlap Therapy: Overlap therapy prescribed VTE Discharge Education: Education about anticoagulant therapy/Care Notes given and None Coding Level of Care Code Acute Chg FW DC note Diagnoses Leg pain M79.604; M79.605 Laterality: bilateral Fever R50.9 Pulmonary embolus, right I26.99 Bilateral pneumonia J18.9 Renal mass, right N28.89 Dehydration E86.0 NSTEMI (non-ST elevated myocardial infarction) I21.4 Hyponatremia E87.1 DVT (deep venous thrombosis) I82.4Z3 DVT location: lower extremity Affected thrombotic vein of extremity: unspecified lower extremity distal vein Chronicity: acute Laterality: bilateral Poor appetite R63.0
--- NOTE | 2020-10-04 12:53 | PC.NURSE ---
Pt discharged home. Pts IV removed no redness or swelling noted. Pt discharge instructions given along with prescriptions and follow up appointments. Pt had no c/o pain or discomfort at the time of discharge. Pt transferred out via wheelchair accompanied by staff.
== END 2020-10-04 12:51 | disposition home or self-care (01) | DRG 280 ==
LOC: ER 20:49 → CSU 09-25 04:44
PROVIDERS: Emergency Medicine; Internal Medicine; Admitting Provider Family Medicine; Emergency Provider Family Medicine; PCP Electrodiagnostic Medicine; Visit Provider Family Medicine
DX: I82.441 Acute embolism and thrombosis of right tibial vein (principal); I26.99 Other pulmonary embolism without acute cor pulmonale; I21.A1 Myocardial infarction type 2; J18.9 Pneumonia, unspecified organism; N13.8 Other obstructive and reflux uropathy; E87.1 Hypo-osmolality and hyponatremia; I82.433 Acute embolism and thrombosis of popliteal vein, bilateral; Z87.442 Personal history of urinary calculi; N40.1 Benign prostatic hyperplasia with lower urinary tract symptoms; Z87.440 Personal history of urinary (tract) infections; S72.451D Displaced supracondylar fracture without intracondylar extension of lower end of right femur, subsequent encounter for closed fracture with routine healing; S82.431D Displaced oblique fracture of shaft of right fibula, subsequent encounter for closed fracture with routine healing; X58.XXXD Exposure to other specified factors, subsequent encounter; Z90.79 Acquired absence of other genital organ(s); Z87.891 Personal history of nicotine dependence; N28.89 Other specified disorders of kidney and ureter; E86.0 Dehydration; M51.36 Other intervertebral disc degeneration, lumbar region; R63.0 Anorexia; M25.462 Effusion, left knee; R31.29 Other microscopic hematuria
CPT/HCPCS: 36415; 36416; 51798; 71045; 71275; 72131; 73502; 73552; 73562; 73630; 73700; 74177; 76770; 76882; 80053; 80061; 81001; 81003; 82550; 82962; 83036; 83605; 83735; 83880; 84100; 84145; 84443; 84484; 84550; 85025; 85378; 85610; 85651; 86038; 86140; 86403; 86431; 87040; 87086; 87426; 87635; 93005; 93306; 93925; 93970; 94664; 96365; 96372; 96375; 97110; 97162; 97166; 97530; 97535; 97760; 99285; J0456; J0696; J1650; J2405; J7030; J7050; Q9967

== ENCOUNTER → 2020-10-14 12:17 | Outpatient (BNVA) | payer MEDICARE, SELFPAY | PROVIDERS: PCP Electrodiagnostic Medicine; Referring Provider Family Medicine; Visit Provider Urology | DX: N21.9 Calculus of lower urinary tract, unspecified (principal); N40.1 Benign prostatic hyperplasia with lower urinary tract symptoms; N28.89 Other specified disorders of kidney and ureter | CPT/HCPCS: 81003 ==

== ENCOUNTER → 2020-10-18 09:35 | Outpatient (BNVA) | payer MEDICARE, SELFPAY | PROVIDERS: PCP Electrodiagnostic Medicine; Visit Provider Orthopaedic Surgery | DX: Z48.89 Encounter for other specified surgical aftercare (principal) | CPT/HCPCS: 73552 ==

== ENCOUNTER → 2020-11-15 09:24 | Outpatient (BNVA) | payer MEDICARE, SELFPAY | PROVIDERS: PCP Electrodiagnostic Medicine; Visit Provider Orthopaedic Surgery | DX: Z48.89 Encounter for other specified surgical aftercare (principal); S72.401A Unspecified fracture of lower end of right femur, initial encounter for closed fracture; X58.XXXA Exposure to other specified factors, initial encounter | CPT/HCPCS: 73552 ==

== ENCOUNTER 2020-11-17 12:46 | Outpatient (RCR) | payer MEDICARE, SELFPAY | END 2020-12-12 23:59 | disposition home or self-care (01) | LOC: SPT 12:46 | PROVIDERS: PCP Electrodiagnostic Medicine; Referring Provider Orthopaedic Surgery; Visit Provider Orthopaedic Surgery | DX: S72.451D Displaced supracondylar fracture without intracondylar extension of lower end of right femur, subsequent encounter for closed fracture with routine healing (principal); X58.XXXD Exposure to other specified factors, subsequent encounter | CPT/HCPCS: 97110; 97116; 97161 ==

== ENCOUNTER 2020-12-13 06:00 | Outpatient (RCR) | payer MEDICARE, SELFPAY | END 2020-12-28 23:00 | disposition home or self-care (01) | LOC: SPT 06:00 | PROVIDERS: PCP Electrodiagnostic Medicine; Referring Provider Orthopaedic Surgery; Visit Provider Orthopaedic Surgery | DX: S72.451D Displaced supracondylar fracture without intracondylar extension of lower end of right femur, subsequent encounter for closed fracture with routine healing (principal); X58.XXXD Exposure to other specified factors, subsequent encounter | CPT/HCPCS: 97110; 97116 ==

== ENCOUNTER → 2020-12-19 13:15 | Outpatient (BNVA) | payer MEDICARE, SELFPAY | PROVIDERS: PCP Electrodiagnostic Medicine; Visit Provider Orthopaedic Surgery | DX: Z48.89 Encounter for other specified surgical aftercare (principal) | CPT/HCPCS: 73552 ==